=== PATIENT | male | born 1945 | race Caucasian/White ===

== ENCOUNTER 2019-05-24 22:38 | Inpatient (IN) | payer MEDICARE, BC ==
[~2019-05-24] VITALS: Ht 175.3 cm; Wt 83.9 kg
--- NOTE | 2019-05-24 22:44 | NUR ---
PT LIMA FROM HOME FOR SOB; PER REPORT PLEURAL EFFUSION; PT AAOX4, NAD NOTED, VSS ,PENDING MD SEGOVIA
--- NOTE | 2019-05-24 22:55 | NUR ---
AT BEDSIDE FOR EVAL
[2019-05-24 23:19] LABS: BASOPHILS # (AUTO) 0.1 /CMM (0.0-0.2); BASOPHILS % (AUTO) 0.9 % (0.0-2.0); EOSINOPHILS % (AUTO) 1.5 % (0.0-6.0); HEMATOCRIT 39 % (39-51); HEMOGLOBIN 13.1 g/dL (13.5-17.5); LYMPHOCYTES # (AUTO) 0.7 /CMM (0.8-4.8); LYMPHOCYTES % (AUTO) 10.1 % (20.0-44.0); MEAN CORPUSCULAR HGB CONC 33 g/dl (31.0-36.0); MEAN CORPUSCULAR VOLUME 86 fL (80-96); MONOCYTES # (AUTO) 0.5 /CMM (0.1-1.30); MONOCYTES % (AUTO) 6.5 % (2.0-12.0); PLATELET COUNT (AUTO) 166 /CMM (150-450); RED BLOOD CELL COUNT(AUTO) 4.56 MIL/uL (4.5-6.0); WHITE BLOOD COUNT (AUTO) 7.4 K/uL (4.3-11.0)
[2019-05-24 23:30] LABS: CALCIUM, SERUM 8.7 mg/dL (8.5-10.1); CARBON DIOXIDE 23 mmol/L (21-32); CHLORIDE 104 mmol/L (98-107); CREATININE 1.1 mg/dL (0.6-1.3); GLUCOSE 112 mg/dL (74-106); SODIUM SERUM 138 mmol/L (136-145); UREA NITROGEN, BLOOD 13 mg/dL (7-18)
--- NOTE | 2019-05-24 23:35 | NUR ---
BED ASSIGNMENT: 325-1 TELE
[2019-05-24 23:43] LABS: ALANINE AMINOTRANSFERASE 16 U/L (12-78); ALKALINE PHOSPHATASE 78 U/L (46-116); ASPARTATE AMINOTRANSFERASE 17 U/L (15-37); B-TYPE NATRIURETIC PEPTIDE 881 PG/ML (0-125); BILIRUBIN,DIRECT 0.3 mg/dL (0.0-0.2); TOTAL PROTEIN, SERUM 6.7 g/dL (6.4-8.2)
[2019-05-25] MEDS ORDERED: TEMAZEPAM 15 MG CAPSULE PO PRN
[2019-05-25] MEDS ORDERED: ONDANSETRON HCL/PF 4 MG/2 ML VIAL IVP PRN
[2019-05-25] MEDS ORDERED: ZOLPIDEM TARTRATE 5 MG TABLET PO PRN
[2019-05-25] MEDS ORDERED: Z GUARD REMEDY 2 OZ OINT TP PRN
[2019-05-25] MEDS ORDERED: HYDROCODONE/APAP 5/325MG 1 EACH TABLET PO PRN
[2019-05-25] MEDS ORDERED: MAG HYDROX/AL HYDROX/SIMETH 30 ML UDC PO PRN
[2019-05-25] MEDS ORDERED: MAGNESIUM HYDROXIDE 30 ML UDC PO PRN
[2019-05-25] MEDS ORDERED: ACETAMINOPHEN 325 MG TABLET PO PRN
[2019-05-25] MEDS ORDERED: LORAZEPAM 1 MG TABLET PO PRN
[2019-05-25] MEDS ORDERED: SERT100T PO (00:05)
[2019-05-25] MEDS ORDERED: TRAZ-214 PO (00:05)
--- NOTE | 2019-05-25 00:05 | NUR ---
REPORT GIVEN TO NOREEN COPELAND FOR PUMA PT WILL BE TRANSPORTED TO 3RD FLOOR VIA ACLS PROTOCOL
[2019-05-25 00:15] VITALS: BP 113/78
--- NOTE | 2019-05-25 00:15 | NUR ---
TELE/TRAVELING BUYER NOTES NEW ADMITTED PATIENT IS A 73 Y.O MALE, ALERT, ORIENTED X3, HARD OF HEARING CAN VERBALIZE NEEDS, RECEIVED PATIENT FROM ER ON A GURNEY FROM HOME DUE TO SOB. PATIENT CAN AMBULATE WITH SUPERVISION, REQUIRE OXYGENATION AT 2 LITER. WITH HX OF PLEURAL EFFUSION, WITH CATHETER THAT REQUIRE EVALUATION FOR REPAIR. PATIENT WITH HISTORY OF COPD, ANXIETY, DEPRESSION, AMPUTAION PARTIAL ON LEFT FOOT TOE, SKIN WITH SURGICAL SCAR OF MID BACK LAMINECTOMY AND BUE DISCOLORATION.MD ARCHER ADMITTING DOCTOR. BELONGINGS CHECK, ONLY EYE GLASSES, TELE RHYTM AR 90'S. ROOM ORIENTATION, CALL LIGHTS WITHIN REACH. BED LOCKED, MEDICATION HOME REPORTED. WILL MONITOR. PATIETN WITH PULMONILOGIST DR NAIK. AND PCP .
--- NOTE | 2019-05-25 00:15 | NUR ---
PT TRANSPOTE TO UNIT WITH EMT AND RN AT BEDSIDE W/ ACLS PROTOCOL. NAD NOTED DURING TRANPORT.
--- NOTE | 2019-05-25 00:21 | NUR ---
Rae lott in [facility] - 05/25/19 at 0021 by JAMES PT TRANSFERRED TO [facility] BED PER ACLS PROTOCOL
--- NOTE | 2019-05-25 00:49 | NUR ---
TELE/RN NOTES ATIVAN 0..5 MG/HALF TABLET PER MD ORDER AND PATIENT REQUEST DUE TO ANXIETY. WILL MONITOR.
--- NOTE | 2019-05-25 03:56 | NUR ---
TELE/RN NOTES HOME MEDICATIONS REPORTED TO MD AWAITING RECONCILIATION. FROM MD.
[2019-05-25 04:00] VITALS: BP 113/75
--- NOTE | 2019-05-25 06:30 | NUR ---
MS/RN NOTES PATIENT ABLE TO SLEEP FEW HOURS, KEPT CALM AND COMFORTABLE. FAMILY INVOLVE. ABLE TO VERBALIZE NEEDS AND VERBALIZED UNDERSTANDING OF PLAN OF CARE WITH US GUIDED THORACENTESIS, CONSNT SIGNED. BED LOCKED, CALL LIGHTS WITHIN REACH, OFFERED AND PROVIDED FLUIDS. MONITORED FOR ANY CHANGES, WILL FOLLOW UP WITH AM NURSE FOR PUMA.
[2019-05-25 06:54] LABS: BASOPHILS # (AUTO) 0.1 /CMM (0.0-0.2); BASOPHILS % (AUTO) 0.7 % (0.0-2.0); EOSINOPHILS % (AUTO) 1.2 % (0.0-6.0); HEMATOCRIT 37 % (39-51); HEMOGLOBIN 12.3 g/dL (13.5-17.5); LYMPHOCYTES # (AUTO) 0.9 /CMM (0.8-4.8); MEAN CORPUSCULAR HGB CONC 33 g/dl (31.0-36.0); MEAN CORPUSCULAR VOLUME 86 fL (80-96); MONOCYTES # (AUTO) 0.8 /CMM (0.1-1.30); MONOCYTES % (AUTO) 9.6 % (2.0-12.0); NEUTROPHILS # (AUTO) 6.2 /CMM (1.8-8.9); NEUTROPHILS % (AUTO) 77.5 % (43.0-81.0); PLATELET COUNT (AUTO) 158 /CMM (150-450); RED BLOOD CELL COUNT(AUTO) 4.31 MIL/uL (4.5-6.0)
[2019-05-25 07:09] LABS: CALCIUM, SERUM 8.5 mg/dL (8.5-10.1); CARBON DIOXIDE 22 mmol/L (21-32); CHLORIDE 105 mmol/L (98-107); CREATININE 0.9 mg/dL (0.6-1.3); GLUCOSE 97 mg/dL (74-106); MAGNESIUM 2.1 mg/dL (1.8-2.4); PHOSPHORUS 3.7 mg/dL (2.5-4.9); POTASSIUM 3.9 mmol/L (3.5-5.1); SODIUM SERUM 140 mmol/L (136-145); UREA NITROGEN, BLOOD 12 mg/dL (7-18)
--- NOTE | 2019-05-25 07:55 | NUR ---
ms rn received on bed, awake,alert,oriented x 3,not in any form of distress, respirations even and unlabored,no sob noted, at bedside.
[2019-05-25 08:00] VITALS: BP 125/82
--- NOTE | 2019-05-25 08:30 | NUR ---
ms rn was seen by dr. nando rust/ orders made and carried out.
--- NOTE | 2019-05-25 11:00 | NUR ---
ms rn was seen by ultrasound, was not able to do thoracentesis due to small fluid, md aware.
--- NOTE | 2019-05-25 12:00 | NUR ---
ms samson called dr. paredes office for consult.
--- NOTE | 2019-05-25 12:00 | NUR ---
ms rn breathing tx was done, w/c helps patient.
[2019-05-25] MEDS: IPRATROPIUM NEB FS 0.5 MG/2.5 ML AMPUL.NEB NEB SCH ×4 (12:35→23:54)
[2019-05-25] MEDS: ALBUTEROL FS 2.5 MG/0.5 ML VIAL.NEB NEB SCH ×4 (12:35→23:54)
[2019-05-25 16:00] VITALS: BP 118/71
--- NOTE | 2019-05-25 16:00 | NUR ---
ms rn waited for dr. paredes, did not come to see patient.
--- NOTE | 2019-05-25 19:24 | NUR ---
ms rn on bed, no distress noted, all needs attended.
[2019-05-25 20:00] VITALS: BP 125/86
--- NOTE | 2019-05-25 20:50 | NUR ---
Met with patient and at bedside. Patient is alert and pleasant. Lives locally with his on the third floor apartment with elevator access. He was ambulatory and independent with adl's prior to admission. He plays golf 3x/week and was active. He is currently on service with [facility] [employer] [phone] for pleurex cath care due to chronic pleural effusion .Patient pcp is Dr. Andreas Randall at [facility]/Lianna Schofield. can provide ride when discharge. Addendum: 05/25/19 at 2050 by LOVE CR RN Amended: Links added.
[2019-05-25] MEDS: SERTRALINE HCL 50 MG TABLET PO SCH (21:09)
[2019-05-25] MEDS ORDERED: TRAZODONE 50 MG TABLET PO SCH (22:00)
[2019-05-26] MEDS: IPRATROPIUM NEB FS 0.5 MG/2.5 ML AMPUL.NEB NEB SCH ×4 (04:05→15:33)
[2019-05-26] MEDS: ALBUTEROL FS 2.5 MG/0.5 ML VIAL.NEB NEB SCH ×4 (04:05→15:33)
--- NOTE | 2019-05-26 06:24 | NUR ---
MS RN NOTES AWAKE & RESPONSIVE. NOT IN ANY DISTRESS. NO SOB NOTED. DENIES ANY PAIN OR DISCOMFORT AT THIS TIME. WITH IV-HL PATENT & INTACT. MONITORED ACCORDINGLY. CALL LIGHT WITHIN REACH. BED IN LOWEST POSITION. SR UP X 2 FOR SAFETY. WILL ENDORSE TO NEXT SHIFT.
[2019-05-26 07:06] LABS: BASOPHILS # (AUTO) 0.1 /CMM (0.0-0.2); BASOPHILS % (AUTO) 0.6 % (0.0-2.0); EOSINOPHILS % (AUTO) 0.4 % (0.0-6.0); HEMATOCRIT 39 % (39-51); HEMOGLOBIN 12.8 g/dL (13.5-17.5); LYMPHOCYTES # (AUTO) 0.8 /CMM (0.8-4.8); LYMPHOCYTES % (AUTO) 8.4 % (20.0-44.0); MEAN CORPUSCULAR HGB CONC 33 g/dl (31.0-36.0); MEAN CORPUSCULAR VOLUME 86 fL (80-96); MONOCYTES # (AUTO) 1.1 /CMM (0.1-1.30); MONOCYTES % (AUTO) 11.5 % (2.0-12.0); NEUTROPHILS # (AUTO) 7.4 /CMM (1.8-8.9); NEUTROPHILS % (AUTO) 79.1 % (43.0-81.0); PLATELET COUNT (AUTO) 174 /CMM (150-450); RED BLOOD CELL COUNT(AUTO) 4.49 MIL/uL (4.5-6.0); WHITE BLOOD COUNT (AUTO) 9.4 K/uL (4.3-11.0)
[2019-05-26 07:09] LABS: CALCIUM, SERUM 8.8 mg/dL (8.5-10.1); CARBON DIOXIDE 21 mmol/L (21-32); CHLORIDE 104 mmol/L (98-107); CREATININE 1.1 mg/dL (0.6-1.3); GLUCOSE 100 mg/dL (74-106); POTASSIUM 3.7 mmol/L (3.5-5.1); SODIUM SERUM 140 mmol/L (136-145); UREA NITROGEN, BLOOD 11 mg/dL (7-18)
--- NOTE | 2019-05-26 07:24 | NUR ---
RN MS OPENING NOTES Patient remains on 2L nasal cannula, no sob noted, patient denies pain at this time. Patient remains a/o x4, no IVF at this time, IV remains patent, family bedside with no further questions at this time. Bed at the lowest setting, call light within reach.
[2019-05-26 08:00] VITALS: BP 98/70
[2019-05-26] MEDS: SERTRALINE HCL 50 MG TABLET PO SCH (08:47)
[2019-05-26 16:00] VITALS: BP 117/76
[2019-05-26] MEDS ORDERED: PRED20TA PO (17:09)
[2019-05-26] MEDS ORDERED: PRED5TAB48 PO (17:09)
--- NOTE | 2019-05-26 18:26 | NUR ---
RN MS DISCHARGE NOTES Patient discharged at this time. Patient refused photo and refused to wait at this time. Paper works signed and in their belongings. Patient has all belongings with them. Patient able to walk with to their car as patient refused a wheelchair at this time.
== END 2019-05-26 18:25 | disposition home or self-care (01) | DRG 919 ==
LOC: ER 22:48 → TELE 23:48 → MED 05-25 10:06
PROVIDERS: ADMIT Internal Medicine; ATTEND Hospitalist
DX: T85.698A Other mechanical complication of other specified internal prosthetic devices, implants and grafts, initial encounter (principal); E43 Unspecified severe protein-calorie malnutrition; J96.21 Acute and chronic respiratory failure with hypoxia; J90 Pleural effusion, not elsewhere classified; J98.11 Atelectasis; J81.1 Chronic pulmonary edema; Y84.8 Other medical procedures as the cause of abnormal reaction of the patient, or of later complication, without mention of misadventure at the time of the procedure; Y92.129 Unspecified place in nursing home as the place of occurrence of the external cause; J44.9 Chronic obstructive pulmonary disease, unspecified; F41.9 Anxiety disorder, unspecified; F32.9 Major depressive disorder, single episode, unspecified; Z79.899 Other long term (current) drug therapy; Z87.891 Personal history of nicotine dependence; Z87.01 Personal history of pneumonia (recurrent)
CPT/HCPCS: 36415; 71045-TC; 76604-TC; 80048-TC; 80076-TC; 83605-TC; 83735-TC; 83880; 84100-TC; 84484-TC; 85025-TC; 85730-TC; 87040-TC; 87081-TC; 94799-TC; G0378

== ENCOUNTER 2019-09-18 15:01 | Emergency (ER) | payer BC, MEDICARE ==
[~2019-09-18] VITALS: Ht 175.3 cm; Wt 74.8 kg
[~2019-09-18 15:01] MED LIST: PRED20TA PO; PRED5TAB48 PO; SERT100T PO; TRAZ-214 PO
--- NOTE | 2019-09-18 15:06 | NUR ---
"BIBRA99, FROM HOME, C/O SOB x 2 DAYS" pt aaox4, nad ntoed, vss, pt on monitor, pending dm eval
[2019-09-18 16:23] LABS: BASOPHILS # (AUTO) 0.1 /CMM (0.0-0.2); BASOPHILS % (AUTO) 0.8 % (0.0-2.0); EOSINOPHILS % (AUTO) 2.8 % (0.0-6.0); HEMATOCRIT 37 % (39-51); HEMOGLOBIN 11.9 g/dL (13.5-17.5); LYMPHOCYTES # (AUTO) 0.7 /CMM (0.8-4.8); MEAN CORPUSCULAR HGB CONC 32 g/dl (31.0-36.0); MEAN CORPUSCULAR VOLUME 83 fL (80-96); MONOCYTES # (AUTO) 0.7 /CMM (0.1-1.30); MONOCYTES % (AUTO) 8.5 % (2.0-12.0); NEUTROPHILS # (AUTO) 6.2 /CMM (1.8-8.9); NEUTROPHILS % (AUTO) 78.9 % (43.0-81.0); PLATELET COUNT (AUTO) 183 /CMM (150-450); RED BLOOD CELL COUNT(AUTO) 4.45 MIL/uL (4.5-6.0); WHITE BLOOD COUNT (AUTO) 7.9 K/uL (4.3-11.0)
[2019-09-18 16:43] LABS: ALBUMIN 2.7 g/dL (3.4-5.0); BILIRUBIN,DIRECT 0.3 mg/dL (0.0-0.2); BILIRUBIN,TOTAL 0.5 mg/dL (0.2-1.0); CALCIUM, SERUM 8.6 mg/dL (8.5-10.1); CREATININE 1.1 mg/dL (0.6-1.3); POTASSIUM 4.2 mmol/L (3.5-5.1); TOTAL PROTEIN, SERUM 7.1 g/dL (6.4-8.2)
[2019-09-18] MEDS ORDERED: MULT-24 PO (17:06)
[2019-09-18] MEDS ORDERED: ALBU18HF2 IH (17:06)
[2019-09-18] MEDS ORDERED: IOHEXOL-350 100 ML VIAL IV ONE (18:36)
[2019-09-18] MEDS ORDERED: CT SWABBABLE VALVE TRANS SET 1 EA INFUS.SET MC ONE (18:36)
[2019-09-18] MEDS ORDERED: IV NS 0.9% 250 ML IV ONE (18:36)
[2019-09-18] MEDS ORDERED: IBUPROFEN 600 MG TABLET PO ONE (19:30)
[2019-09-18] MEDS ORDERED: ONDANSETRON 4 MG TAB.RAPDIS SL ONE (19:30)
--- NOTE | 2019-09-18 20:08 | NUR ---
Patient does not wish to proceed with medical care recommended by Dr. Geiger. Patient given information related to possible complications, up to and including , which could occur as a result of leaving the hospital at this time. Patient verbalizes understanding of risks involved due to leaving against medical advice. Patient has signed AMA form.
[2019-09-18 20:13] VITALS: BP 110/64
== END 2019-09-18 20:13 | disposition left against medical advice (07) ==
LOC: ER 15:11
DX: J90 Pleural effusion, not elsewhere classified (principal); R91.8 Other nonspecific abnormal finding of lung field; D64.9 Anemia, unspecified; J44.9 Chronic obstructive pulmonary disease, unspecified; F41.9 Anxiety disorder, unspecified; F32.9 Major depressive disorder, single episode, unspecified; Z98.890 Other specified postprocedural states; Z79.899 Other long term (current) drug therapy
CPT/HCPCS: 36415; 71045; 71275; 80048; 80076; 83880; 84484; 85025; 85378; 93005; 99284; J7050; Q9967

== ENCOUNTER 2021-05-13 12:31 | Inpatient (IN) | payer MEDICARE, OTHER ==
[~2021-05-13] VITALS: Ht 174 cm; Wt 65.8 kg
[~2021-05-13 12:31] MED LIST changes: +ALBU18HF2 IH; +MULT-24 PO; -PRED20TA PO; -PRED5TAB48 PO; -TRAZ-214 PO
--- NOTE | 2021-05-13 12:50 | NUR ---
bibra88, from home, more altered than normal per . On room air, breathing evenly and unlabored. Connected to the monitor and pulse ox. kept comfortable, will continue to monitor accordingly.
--- NOTE | 2021-05-13 12:59 | NUR ---
IV started and blood drawned and sent to lab.
--- NOTE | 2021-05-13 12:59 | NUR ---
urine collected and sent to lab.
[2021-05-13 13:03] LABS: BASOPHILS # (AUTO) 0.1 K/uL (0.0-0.2); BASOPHILS % (AUTO) 0.5 % (0.0-2.0); EOSINOPHILS % (AUTO) 0.3 % (0.0-6.0); HEMATOCRIT 43 % (39-51); HEMOGLOBIN 13.8 g/dL (13.5-17.5); LYMPHOCYTES # (AUTO) 0.7 K/uL (0.8-4.8); LYMPHOCYTES % (AUTO) 7.1 % (20.0-44.0); MEAN CORPUSCULAR HGB CONC 32 g/dl (31.0-36.0); MEAN CORPUSCULAR VOLUME 85 fL (80-96); MONOCYTES # (AUTO) 0.7 K/uL (0.1-1.30); MONOCYTES % (AUTO) 7.2 % (2.0-12.0); NEUTROPHILS # (AUTO) 8.6 K/uL (1.8-8.9); NEUTROPHILS % (AUTO) 84.9 % (43.0-81.0); PLATELET COUNT (AUTO) 216 K/uL (150-450); RED BLOOD CELL COUNT(AUTO) 5.09 MIL/uL (4.5-6.0); WHITE BLOOD COUNT (AUTO) 10.2 K/uL (4.3-11.0)
[2021-05-13 13:08] LABS: BILIRUBIN,URINE Negative (NEGATIVE); COLOR,URINE DARK YELLOW (YELLOW); LEUKOCYTE ESTERASE ,URINE Negative (NEGATIVE); NITRITE, URINE Negative (NEGATIVE); PH,URINE 5.5 (5.0-8.0); PROTEIN,URINE Trace mg/dl (NEGATIVE); UGLUCOSE Negative (NEGATIVE); UROBILINOGEN,URINE 0.2 EU/dL (0.2)
[2021-05-13 13:10] LABS: CALCIUM, SERUM 9.3 mg/dL (8.5-10.1); CARBON DIOXIDE 26 mmol/L (21-32); CHLORIDE 102 mmol/L (98-107); CREATININE 0.9 mg/dL (0.6-1.3); GLUCOSE 101 mg/dL (74-106); POTASSIUM 4.2 mmol/L (3.5-5.1); SODIUM SERUM 139 mmol/L (136-145); UREA NITROGEN, BLOOD 20 mg/dL (7-18)
[2021-05-13 13:14] LABS: ACETAMINOPHEN 0 ug/ml (10-30)
[2021-05-13 13:21] LABS: BACTERIA,URINE Rare /HPF (None Seen); RBC,URINE NONE SEEN /HPF (0-2); SQUAMOUS EPITHELIAL CELL,UR Rare /HPF (None Seen); WBC,URINE 0-2 /HPF (0-3)
[2021-05-13 13:37] LABS: SERUM AMMONIA 26 umol/L (11-32)
[2021-05-13] MEDS ORDERED: ALPR0.255 PO (13:41)
[2021-05-13] MEDS ORDERED: BUSP10TA3 PO (13:41)
[2021-05-13] MEDS ORDERED: SODI1TAB66 PO (13:41)
[2021-05-13] MEDS ORDERED: TRAZ-257 PO (13:41)
[2021-05-13] MEDS ORDERED: LORAZEPAM INJ 2 MG/ML VIAL IV PRN (15:00)
[2021-05-13] MEDS ORDERED: MAGNESIUM HYDROXIDE 30 ML UDC PO PRN (15:00)
[2021-05-13] MEDS ORDERED: ACETAMINOPHEN 325 MG TABLET PO PRN (15:00)
[2021-05-13] MEDS ORDERED: MAG HYDROX/AL HYDROX/SIMETH 30 ML UDC PO PRN (15:00)
[2021-05-13] MEDS ORDERED: HOME MED MISCELLANEOUS XX SCH (15:00)
[2021-05-13] MEDS ORDERED: ONDANSETRON HCL/PF 4 MG/2 ML VIAL IVP PRN (15:00)
[2021-05-13] MEDS ORDERED: Z GUARD REMEDY 2 OZ OINT TP PRN (15:00)
--- NOTE | 2021-05-13 15:12 | NUR ---
GOT BED 304-2
--- NOTE | 2021-05-13 15:28 | NUR ---
report given to Patricia COPELAND for mahnaz.
--- NOTE | 2021-05-13 15:56 | NUR ---
wheeled patient via gurney accompanied by RN and emt in no distress. RN assigned at bedside to assume care.
--- NOTE | 2021-05-13 16:00 | NUR ---
TRANSPORTATION SALES CONSULTANT NOTES RECEIVED PT FROM E.R. STAFF VIA GABRIELA, PT IS AWAKE, ALERT AND VERBALLY RESPONSIVE, ASSISTED TO BED, MADE COMFORTABLE, ROOM SET UP ORIENTATION PROVIDED TO PT, PT AND JERONIMO VERBALIZED UNDERSTANDING, NO COMPLAINT OF PAIN OF ANY DISCOMFORT, ADMITTING ORDERS RECEIVED, NOTED AND CARRIED OUT, VITALS TAKEN AND RECORDED, PLACED ON TELE MONITORING, KEPT WARM AND COMFORTABLE.
--- NOTE | 2021-05-13 18:42 | NUR ---
BUSINESS ANALYTICS SPECIALIST NOTES PT IN BED, RESTING, ASSISTED WITH MEALS BY JERONIMO, IV FLUIDS INFUSING WELL, CALL LIGHT PLACED WITHIN REACH, PM CARE PROVIDED, ALL NEEDS ATTENDED.
[2021-05-13] MEDS: busPIRone 5 MG TABLET PO SCH (18:54)
[2021-05-13] MEDS: IV NS 0.9% 1,000 ML IV PRN (18:54)
--- NOTE | 2021-05-13 19:57 | NUR ---
HOSPITAL MANAGER OPENING NOTE PATIENT A/OX2; IN BED, FORGETFUL, ABLE TO MAKE NEEDS KNOWN. TOLERATING ROOM AIR WELL WITH NO SOB. EXTERNAL ELEMENTARY SPECIAL EDUCATION TEACHER READS NSR AT 77. RAC #18G NS @ 75ML/HR; PATENT AND INTACT. SAFETY MEASURES IN PLACE: BED TO LOWEST LOCKED POSITION, SIDE RAILS UPX2, CALL LIGHT WITHIN EASY REACH, BED ALARM ON. PATIENT IN STABLE CONDITION WILL CONTINUE PLAN OF CARE.
[2021-05-13 20:18] VITALS: BP 115/83
[2021-05-13] MEDS ORDERED: TRAZODONE 50 MG TABLET PO SCH (22:00)
[2021-05-13 23:54] VITALS: BP 126/89
--- NOTE | 2021-05-14 04:10 | NUR ---
HUMAN RESOURCES OFFICE ASSISTANT NOTE - BEHAVIOR PATIENT NOTED WITH EPISODES OF ANXIETY, INSOMNIA, AGITATION, RESTLESSNESS, IRRITABILITY, CONFUSION, AND PARANOIA. OFFERED PAIN MEDICATION; PATIENT AGREED AND THEN REFUSED X3 . PATIENT REFUSING CARE AT THIS TIME. WILL CONTINUE TO MONITOR PATIENT'S BEHAVIOR.
[2021-05-14 06:11] LABS: BASOPHILS % (AUTO) 0.5 % (0.0-2.0); HEMATOCRIT 40 % (39-51); HEMOGLOBIN 12.8 g/dL (13.5-17.5); LYMPHOCYTES % (AUTO) 11.7 % (20.0-44.0); MEAN CORPUSCULAR HGB CONC 32 g/dl (31.0-36.0); MEAN CORPUSCULAR VOLUME 85 fL (80-96); MONOCYTES # (AUTO) 0.7 K/uL (0.1-1.30); NEUTROPHILS # (AUTO) 6.4 K/uL (1.8-8.9); NEUTROPHILS % (AUTO) 78.8 % (43.0-81.0); PLATELET COUNT (AUTO) 191 K/uL (150-450); RED BLOOD CELL COUNT(AUTO) 4.75 MIL/uL (4.5-6.0); WHITE BLOOD COUNT (AUTO) 8.2 K/uL (4.3-11.0)
--- NOTE | 2021-05-14 06:46 | NUR ---
BRIAR SHOP SUPERVISOR OPENING NOTE PATIENT A/OX1; IN BED, FORGETFUL, ABLE TO MAKE NEEDS KNOWN. TOLERATING ROOM AIR WELL WITH NO SOB. EXTERNAL HAM FACER READS NSR AT 77. RAC #18G NS @ 75ML/HR; PATENT AND INTACT. SAFETY MEASURES IN PLACE: BED TO LOWEST LOCKED POSITION, SIDE RAILS UPX2, CALL LIGHT WITHIN EASY REACH, BED ALARM ON. PATIENT IN STABLE CONDITION WILL ENDORSE PLAN OF CARE TO MORNING RN.
--- NOTE | 2021-05-14 06:48 | NUR ---
CARTOON ARTIST CLOSING NOTE PATIENT A/OX1; IN BED, FORGETFUL, ABLE TO MAKE NEEDS KNOWN. TOLERATING ROOM AIR WELL WITH NO SOB. EXTERNAL PERCUSSION INSTRUMENT REPAIRER READS NSR AT 77. RAC #18G NS @ 75ML/HR; PATENT AND INTACT. SAFETY MEASURES IN PLACE: BED TO LOWEST LOCKED POSITION, SIDE RAILS UPX2, CALL LIGHT WITHIN EASY REACH, BED ALARM ON. PATIENT IN STABLE CONDITION WILL ENDORSE PLAN OF CARE TO MORNING RN. Addendum: 05/14/21 at 0650 by BLAZE THAPA RN CORRECTION IV SITE: MONY #20G NS @ 75ML/HR VAMSHI #22G S/L
[2021-05-14] MEDS: IV NS 0.9% 1,000 ML IV PRN (07:00)
[2021-05-14 07:14] LABS: CALCIUM, SERUM 8.7 mg/dL (8.5-10.1); CREATININE 0.9 mg/dL (0.6-1.3); MAGNESIUM 2.2 mg/dL (1.8-2.4); PHOSPHORUS 3.3 mg/dL (2.5-4.9); POTASSIUM 3.6 mmol/L (3.5-5.1)
--- NOTE | 2021-05-14 07:25 | NUR ---
MINK RANCHER OPENING NOTE RECEIVED PT AWAKE IN BED, PT HEARD TALKING TO HIMSELF. PROVIDED REORIENTATION. PT A/O X3, BUT EASILY FORGETS. DENIES ANY PAIN OR DISCOMFORT AT THIS TIME. BREATHING EVEN AND UNLABORED, ON ROOM AIR. IV ACCESS NOTED ON R-AC #18G, INTACT, PATENT, FLUSHES WELL, NO S/S OF INFILTRATE NOTED. SAFETY MEASURES IN PLACE: BED TO LOWEST LOCKED POSITION, SIDE RAILS UPX2, CALL LIGHT WITHIN EASY REACH, BED ALARM ON. PATIENT IN STABLE CONDITION. WILL CONTINUE TO MONITOR.
[2021-05-14] MEDS ORDERED: LORAZEPAM INJ 2 MG/ML VIAL IV ONE (08:30)
[2021-05-14] MEDS: MULTIVITAMINS,THERAGRAN 1 UDTAB TABLET PO SCH (08:54)
[2021-05-14] MEDS: PANTOPRAZOLE 40 MG TABLET.DR PO SCH (08:55)
[2021-05-14] MEDS: busPIRone 5 MG TABLET PO SCH ×2 (08:55→17:00)
[2021-05-14] MEDS ORDERED: SERTRALINE HCL 50 MG TABLET PO SCH (09:00)
--- NOTE | 2021-05-14 10:35 | NUR ---
WOUND CARE CONSULT: PT PRESENTS WITH DRY ABRASIONS TO UPPER EXTREMITIES AND DISCOLORATION TO LEFT SIDE OF NECK, PRESENT ON ADMISSION. PT IS ABLE TO TURN, REPOSITION IN BED AND IS CONTINENT AT THIS TIME. DISCUSSED SKIN PROTECTION WITH PT, AND NURSING STAFF. WILL SEE PRN. JIMÉNEZ IN AGREEMENT WITH PLAN OF CARE.
--- NOTE | 2021-05-14 14:25 | NUR ---
RN NOTE PT'S CALLED FOR NURSE DUE TO PT HAS BEEN TRYING TO GET UP OUT OF BED BY HIMSELF AND STATING TO GO HOME. PT HAS SEVERE WEAKNESS OF EXTREMITIES AND IS AT HIGH RISK FOR FALL. NURSE NOTED PT IS HYPERVERBAL AND AGITATED, SPOKE CALMLY TO PT, PROVIDED REORIENTATION, PROVIDED DISTRACTION, OFFERED BEDSIDE COMMODE. PT APPEARS TO CALM DOWN MOMENTARILY. ASSISTED TO BEDSIDE COMMODE AND PT SAT IN BEDSIDE COMMODE, BUT STARTS TO STAND UP AGAIN BY HIMSELF, ASSISTED SAFELY TO BED WITH 2-PERSON ASSIST WITH BOAT CANVAS MAKER AND INSTALLER. PT SAT AT EDGE OF BED BUT AGAIN STARTED GETTING AGITATED, HYPERVERBAL, STRIKING OUT AT NURSES AND SCREAMING. CALLED CHARGE NURSE AND SECURITY. INFORMED AND CAME TO SEE PT.
--- NOTE | 2021-05-14 14:57 | NUR ---
RN MS NOTES PT AWAKE, AGITATED AND ANXIOUS, VERBALIZES HE WANTS TO GO HOME, TRYING TO GET OUT OF BED, TRYING TO STAND UP, WITH BLE WEAKNESS, RISK FOR FALL, SECURITY FLEX OFFICER, RN'S AND AT BEDSIDE, WITH EPISODE OF BEING COMBATIVE TO STAFF, NOTED WIT BLEEDING TO SKIN TEARS TO BOTH ARMS, TREATMENT DONE AND DRESSING APPLIED, DR. HASSAN CAME AND SAW PATIENT, ORDERS GIVEN, NOTED AND CARRIED OUT, WILL CONTINUE TO MONITOR.
[2021-05-14] MEDS ORDERED: QUETIAPINE FUMARATE 25 MG TABLET PO SCH (15:00)
[2021-05-14] MEDS: DIVALPROEX SODIUM 125 MG CAP.SPRINK PO SCH ×2 (15:21→21:32)
[2021-05-14] MEDS: DOCUSATE SODIUM 100 MG CAPSULE PO SCH (17:00)
[2021-05-14] MEDS: QUETIAPINE FUMARATE 25 MG TABLET PO SCH (17:00)
--- NOTE | 2021-05-14 17:21 | NUR ---
RN NOTE PT'S LEFT WITH REQUEST NOT TO WAKE PT UP FOR DINNER, TO LET HIM SLEEP, SHE VERBALIZED "FOR LONG HE WANTS" AND "IF HE SLEEPS UNTIL NOON TOMORROW, LET HIM SLEEP; HE HASN'T SLEPT FOR DAYS." PT IS SLEEPING SOUNDLY AT THIS TIME, NO SOB. CALL LIGHT WITHIN EASY REACH. WILL CONTINUE FREQUENT VISUAL CHECKS.
--- NOTE | 2021-05-14 18:02 | NUR ---
RN NOTE PM MEDS NOT GIVEN, PT SLEEPING SOUNDLY. PER 'S REQUEST "DO NOT WAKE HIM UP, HE'S HAD NO SLEEP FOR DAYS."
--- NOTE | 2021-05-14 19:00 | NUR ---
RN NOTE RECEIVED PT IN 320-1. SITTER AT BEDSIDE. IV MEDS PLACED IN MED ROOM. BELONGINGS CHECKED AND WITH PT. IV PRESENT. PT REFUSES SKIN CHECK. WILL CONTINUE TO MONITOR AND GIVEN REPORT TO NIGHT NURSE FOR ADMISSION PROCESS.
--- NOTE | 2021-05-14 19:37 | NUR ---
Per RN, u/s thyroid exam to be done tomorrow morning due to patient's aggressive nature today and refusal. Patient is asleep and does not want to be disturbed.
[2021-05-14 20:00] VITALS: BP 126/62
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
--- NOTE | 2021-05-14 21:10 | NUR ---
still awaiting verification of new ativan order from pharmacy. pt more cooperative with staff at this time. security left the bedside. ramya employment educational coord to remain at bedside. will cont to monitor behavior.
[2021-05-14] MEDS ORDERED: LORAZEPAM INJ 2 MG/ML VIAL IV PRN (21:30)
--- NOTE | 2021-05-14 21:35 | NUR ---
pt in bed cooperating took scheduled depakote. still awaiting medications to be verified for agitation. pt is calm at this time. in room with sitter. will cont to monitor mood and behavior.
[2021-05-14] MEDS ORDERED: HALOPERIDOL LACTATE INJ 5 MG/ML VIAL IM PRN (22:00)
--- NOTE | 2021-05-15 05:26 | NUR ---
PT AWAKE COOPERATIVE; PICTURES TAKEN OF SKIN TEARS TO LEFT ARM AND HAND. CLEANED WITH NS, XEROFORM APPLIED COVERED WITH MEPILEX WRAPPED IN KERLIX. WILL CONT TO MONITOR. TORRI BOYD STILL AT BEDSIDE.
[2021-05-15 05:59] LABS: BASOPHILS % (AUTO) 0.5 % (0.0-2.0); CALCIUM, SERUM 8.7 mg/dL (8.5-10.1); CREATININE 0.9 mg/dL (0.6-1.3); EOSINOPHILS % (AUTO) 1.4 % (0.0-6.0); HEMATOCRIT 40 % (39-51); HEMOGLOBIN 12.9 g/dL (13.5-17.5); LYMPHOCYTES # (AUTO) 0.9 K/uL (0.8-4.8); MEAN CORPUSCULAR HGB CONC 32 g/dl (31.0-36.0); MEAN CORPUSCULAR VOLUME 84 fL (80-96); MONOCYTES # (AUTO) 0.7 K/uL (0.1-1.30); MONOCYTES % (AUTO) 8.1 % (2.0-12.0); NEUTROPHILS # (AUTO) 6.5 K/uL (1.8-8.9); PLATELET COUNT (AUTO) 176 K/uL (150-450); POTASSIUM 3.6 mmol/L (3.5-5.1); RED BLOOD CELL COUNT(AUTO) 4.74 MIL/uL (4.5-6.0); WHITE BLOOD COUNT (AUTO) 8.2 K/uL (4.3-11.0)
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
--- NOTE | 2021-05-15 06:30 | NUR ---
RN CLOSING NOTE. PT RESTING IN BED WITH EYES CLOSED IN NO APPARENT DISTRESS. BED DOWN LOCKED. SITTER AT THE BEDSIDE. SRX3 BED ALARM ACTIVE.
--- NOTE | 2021-05-15 07:10 | NUR ---
MS RN OPENING NOTE RECEIVED PATIENT ON BED, A/OX1-2 BUT FORGETFUL. PATIENT ABLE TO MAKE NEEDS KNOWN. TOLERATING ROOM AIR WELL WITH NO SOB, WITH EVEN AND UNLABORED BREATHING. WITH IV ACCESS ON MONY G 20 AND RFA G22, PATENT AND INTACT. WITH SITTER AT BEDSIDE. SAFETY MEASURES IN PLACE: BED TO LOWEST LOCKED POSITION, SIDE RAILS UPX2, CALL LIGHT WITHIN EASY REACH, BED ALARM ON. PATIENT IN STABLE CONDITION. CONTINUE TO MONITOR PATIENT.
[2021-05-15] MEDS: PANTOPRAZOLE 40 MG TABLET.DR PO SCH (08:55)
[2021-05-15] MEDS: MULTIVITAMINS,THERAGRAN 1 UDTAB TABLET PO SCH (08:55)
[2021-05-15] MEDS: DIVALPROEX SODIUM 125 MG CAP.SPRINK PO SCH ×2 (08:55→17:09)
[2021-05-15] MEDS: DOCUSATE SODIUM 100 MG CAPSULE PO SCH ×2 (08:56→17:00)
[2021-05-15] MEDS: QUETIAPINE FUMARATE 25 MG TABLET PO SCH ×3 (08:57→17:08)
[2021-05-15] MEDS: FUROSEMIDE 40 MG/4 ML VIAL IV SCH ×3 (09:30→17:09)
[2021-05-15] MEDS: POTASSIUM CHLORIDE 20 MEQ TAB.PRT.SR PO SCH ×3 (10:38→12:48)
--- NOTE | 2021-05-15 17:00 | NUR ---
MS RN NOTE COLACE NOT GIVEN. PATIENT HAD 2 SOFT BM TODAY.
--- NOTE | 2021-05-15 18:55 | NUR ---
MS RN CLOSING NOTE PATIENT ON BED, A/OX2 BUT FORGETFUL. PATIENT ABLE TO MAKE NEEDS KNOWN. TOLERATING ROOM AIR WELL WITH NO SOB, WITH EVEN AND UNLABORED BREATHING. WITH IV ACCESS ON MONY G 20 AND RFA G22, PATENT AND INTACT. WITH SITTER AT BEDSIDE. SAFETY MEASURES IN PLACE: BED TO LOWEST LOCKED POSITION, SIDE RAILS UPX2, CALL LIGHT WITHIN EASY REACH, BED ALARM ON. PATIENT IN STABLE CONDITION. ENDORSED PATIENT FOR CONTINUITY OF CARE.
--- NOTE | 2021-05-15 19:00 | NUR ---
MS RN OPENING NOTE RECEIVED PT AWAKE IN BED. A/O X 1-2, SOME CONFUSION AND FORGETFULNESS ON ROOM AIR, NO SOB OR DISTRESS NOTED, NO C/O PAIN;RESPIRATIONS EVEN AND UNLABORED, IV ACCESS NOTED IN RFA G#22 INTACT, MONY G#20 INTACT, PATENT AND FLUSHING WELL. FALL AND SAFETY MEASURES IN PLACE AND MAINTAINED AT ALL TIMES: BED ALARM ON, BED IN LOW AND LOCKED POSITION, HOB ELEVATED TO SEMI FOWLERS POSITION, CALL LIGHT AND TABLE WITHIN REACH, SIDE RAILS UPX2. SITTER AT BEDSIDE. WILL CONTINUE WITH PLAN OF CARE.
[2021-05-16 06:25] LABS: BASOPHILS % (AUTO) 0.6 % (0.0-2.0); EOSINOPHILS % (AUTO) 1.5 % (0.0-6.0); HEMATOCRIT 41 % (39-51); HEMOGLOBIN 13.5 g/dL (13.5-17.5); LYMPHOCYTES # (AUTO) 0.9 K/uL (0.8-4.8); LYMPHOCYTES % (AUTO) 10.9 % (20.0-44.0); MEAN CORPUSCULAR HGB CONC 33 g/dl (31.0-36.0); MEAN CORPUSCULAR VOLUME 84 fL (80-96); MONOCYTES # (AUTO) 0.7 K/uL (0.1-1.30); MONOCYTES % (AUTO) 8.7 % (2.0-12.0); NEUTROPHILS # (AUTO) 6.4 K/uL (1.8-8.9); NEUTROPHILS % (AUTO) 78.3 % (43.0-81.0); PLATELET COUNT (AUTO) 179 K/uL (150-450); RED BLOOD CELL COUNT(AUTO) 4.91 MIL/uL (4.5-6.0); WHITE BLOOD COUNT (AUTO) 8.2 K/uL (4.3-11.0)
--- NOTE | 2021-05-16 06:30 | NUR ---
RN CLOSING NOTE PT IS AWAKE IN BED AT THIS TIME. NO SOB OR RESPIRATORY DISTRESS NOTED. PT REMAINED STABLE THROUGHOUT SHIFT, NO PAIN OR DISCOMFORT. IV ACCESS INTACT,PATENT AND FLUSHING WELL. BED IN LOCKED POSITION, CALL LIGHT AND TABLE WITHIN REACH. SIDE RAILS UPX2. SITTER AT BEDSIDE. WILL ENDORSE TO DAY SHIFT NURSE
[2021-05-16 06:50] LABS: ALBUMIN 3.2 g/dL (3.4-5.0); BILIRUBIN,TOTAL 0.9 mg/dL (0.2-1.0); CALCIUM, SERUM 8.7 mg/dL (8.5-10.1); MAGNESIUM 2.1 mg/dL (1.8-2.4); PHOSPHORUS 3.3 mg/dL (2.5-4.9); POTASSIUM 4.1 mmol/L (3.5-5.1); TOTAL PROTEIN, SERUM 6.9 g/dL (6.4-8.2)
--- NOTE | 2021-05-16 07:45 | NUR ---
MS RN OPENING NOTES RECEIVED PATIENT IN BED, A/O X2. PATIENT ON ROOM AIR; BREATHING EVEN AND UNLABORED, NO COMPLAINS OF PAIN. MONY G # 20 AND RFA G # 22 IV ACCESS PRESENT AND INTACT. SAFETY PRECAUTIONS IN PLACE; BED IN LOW POSITION AND LOCKED, RAILS UP X2, CALL LIGHT WITHIN REACH. WILL CONTINUE TO MONITOR PATIENT.
[2021-05-16] MEDS: DOCUSATE SODIUM 100 MG CAPSULE PO SCH (08:30)
[2021-05-16] MEDS: DIVALPROEX SODIUM 125 MG CAP.SPRINK PO SCH (08:30)
[2021-05-16] MEDS: MULTIVITAMINS,THERAGRAN 1 UDTAB TABLET PO SCH (08:30)
[2021-05-16] MEDS: PANTOPRAZOLE 40 MG TABLET.DR PO SCH (08:30)
[2021-05-16] MEDS: QUETIAPINE FUMARATE 25 MG TABLET PO SCH (08:31)
[2021-05-16] MEDS ORDERED: DIVA250T PO (08:57)
[2021-05-16] MEDS ORDERED: QUET25TA PO (08:57)
[2021-05-16] MEDS ORDERED: SERTRALINE HCL 50 MG TABLET PO SCH (09:00)
--- NOTE | 2021-05-16 09:48 | NUR ---
WOUND CARE CONSULT: PT PRESENTS WITH DRESSINGS TO BILATERAL ARMS AND SKIN TEARS NOTED IN PHOTOS. PT PREVIOUSLY HAD VERY FRAGILE SKIN WITH DISCOLORATION, UPON ADMISSION. RECOMMENDATIONS MADE FOR SKIN PROTECTION AND WOUND CARE. DISCUSSED WITH NURSING STAFF. MD IN AGREEMENT WITH PLAN OF CARE.
--- NOTE | 2021-05-16 11:42 | NUR ---
MS PROFESSOR OF KINESIOLOGY NOTES PATIENT DISCHARGED HOME IN MEDICALLY STABLE CONDITION. PATIENT ON ROOM AIR, A/O X2. PRESENT AT BED SITE. ALL DISCHARGE PAPERWORK READY AND TEACHING PROVIDED TO PATIENT REGARDING PHYSICIAN DISCHARGE INSTRUCTIONS, FOLLOW UP AND MEDICATION TEACHING; VERBALIZED UNDERSTANDING AND PAPERS WERE SIGNED. BELONGINGS ACCOUNTED FOR AND PAPERWORK SIGNED WELL. WOUND CARE PROVIDED BEFORE PATIENT LEFT. IV LINES REMOVED, PHOTOS OF WOUNDS TAKE. PATIENT LEFT THE FLOOR VIA WHEELCHAIR ACCOMPANIED BY CLINICAL RECRUITER AND AT 1115
== END 2021-05-16 11:15 | disposition home or self-care (01) | DRG 640 ==
LOC: ER 12:35 → TELE 15:32 → MED 05-14 11:26
PROVIDERS: ADMIT Nurse Practitioner Acute Care; ATTEND Nurse Practitioner Acute Care
DX: E86.0 Dehydration (principal); G93.41 Metabolic encephalopathy; J98.11 Atelectasis; E87.1 Hypo-osmolality and hyponatremia; R79.89 Other specified abnormal findings of blood chemistry; F32.9 Major depressive disorder, single episode, unspecified; F41.9 Anxiety disorder, unspecified; Z20.822 Contact with and (suspected) exposure to COVID-19; J44.9 Chronic obstructive pulmonary disease, unspecified; F17.210 Nicotine dependence, cigarettes, uncomplicated; Z89.421 Acquired absence of other right toe(s); Z98.1 Arthrodesis status; Z79.51 Long term (current) use of inhaled steroids; Z79.899 Other long term (current) drug therapy; T43.225A Adverse effect of selective serotonin reuptake inhibitors, initial encounter; Y92.9 Unspecified place or not applicable; G30.0 Alzheimer's disease with early onset; F02.80 Dementia in other diseases classified elsewhere, unspecified severity, without behavioral disturbance, psychotic disturbance, mood disturbance, and anxiety; I50.9 Heart failure, unspecified; K80.20 Calculus of gallbladder without cholecystitis without obstruction; F39 Unspecified mood [affective] disorder; F29 Unspecified psychosis not due to a substance or known physiological condition
CPT/HCPCS: 36415; 71045-TC; 71250-TC; 76536-TC; 80048-TC; 80053-TC; 80061-TC; 81001; 82140-TC; 83735-TC; 83880; 84100-TC; 84439-TC; 84443-TC; 84480; 84484-TC; 85025-TC; 85730-TC; 87081-TC; 93307-TC; A6403; C9803; G0378; J1940; J2060; J7030

== ENCOUNTER 2021-07-02 18:41 | Emergency (ER) | payer OTHER ==
[~2021-07-02] VITALS: Ht 175.3 cm; Wt 66.2 kg
[~2021-07-02 18:41] MED LIST changes: +DIVA250T PO; +QUET25TA PO
--- NOTE | 2021-07-02 19:05 | NUR ---
PATIENT BIBRA88 HOME, PER , PATIENT HAS GENERALIZED WEAKNESS. PT TAKING LEVAQUIN PO UNKNOWN DX. PATIENT IS A/O X 4, RR EVEN AND UNLABORED, NO SIGNS OF SOB NOTED. PATIENT CONNECTED TO CARDIAC AND POX MONITOR.
[2021-07-02] MEDS: IV NS 0.9% 500 ML BAG IV ONE (19:48)
[2021-07-02 19:57] LABS: BASOPHILS % (AUTO) 0.5 % (0.0-2.0); EOSINOPHILS % (AUTO) 1.1 % (0.0-6.0); HEMATOCRIT 43 % (39-51); LYMPHOCYTES # (AUTO) 0.7 K/uL (0.8-4.8); LYMPHOCYTES % (AUTO) 10.5 % (20.0-44.0); MEAN CORPUSCULAR HGB CONC 33 g/dl (31.0-36.0); MEAN CORPUSCULAR VOLUME 87 fL (80-96); MONOCYTES # (AUTO) 0.5 K/uL (0.1-1.30); MONOCYTES % (AUTO) 8.3 % (2.0-12.0); NEUTROPHILS % (AUTO) 79.6 % (43.0-81.0); PLATELET COUNT (AUTO) 195 K/uL (150-450); RED BLOOD CELL COUNT(AUTO) 4.92 MIL/uL (4.5-6.0); WHITE BLOOD COUNT (AUTO) 6.3 K/uL (4.3-11.0)
[2021-07-02 20:32] LABS: ALANINE AMINOTRANSFERASE 17 U/L (12-78); ALBUMIN 3.2 g/dL (3.4-5.0); ALKALINE PHOSPHATASE 76 U/L (46-116); ASPARTATE AMINOTRANSFERASE 15 U/L (15-37); BILIRUBIN,DIRECT 0.2 mg/dL (0.0-0.2); BILIRUBIN,TOTAL 0.7 mg/dL (0.2-1.0); CALCIUM, SERUM 9.1 mg/dL (8.5-10.1); CARBON DIOXIDE 28 mmol/L (21-32); CHLORIDE 104 mmol/L (98-107); CREATININE 0.7 mg/dL (0.6-1.3); GLUCOSE 94 mg/dL (74-106); POTASSIUM 4.4 mmol/L (3.5-5.1); SODIUM SERUM 141 mmol/L (136-145); TOTAL PROTEIN, SERUM 6.9 g/dL (6.4-8.2); UREA NITROGEN, BLOOD 16 mg/dL (7-18)
--- NOTE | 2021-07-02 20:52 | NUR ---
Patient discharged to home in stable condition. Written and verbal after care instructions given. Patient verbalizes understanding of instruction.
[2021-07-02 21:33] VITALS: BP 127/76
[2021-07-02 22:48] LABS: THYROID STIMULATING HORMONE 1.493 uIU/mL (0.358-3.74)
== END 2021-07-02 20:55 | disposition home or self-care (01) ==
LOC: ER 18:51
DX: R53.1 Weakness (principal); H91.90 Unspecified hearing loss, unspecified ear; F03.90 Unspecified dementia, unspecified severity, without behavioral disturbance, psychotic disturbance, mood disturbance, and anxiety; Z98.890 Other specified postprocedural states; Z88.8 Allergy status to other drugs, medicaments and biological substances; Z88.9 Allergy status to unspecified drugs, medicaments and biological substances; Z79.899 Other long term (current) drug therapy
CPT/HCPCS: 36415; 71045-TC; 80048-TC; 80076-TC; 84443-TC; 84484-TC; 85025-TC

== ENCOUNTER 2021-07-16 08:27 | Inpatient (IN) | payer OTHER ==
[~2021-07-16] VITALS: Ht 175.3 cm; Wt 62.1 kg
[2021-07-16 08:57] LABS: BASOPHILS # (AUTO) 0.1 K/uL (0.0-0.2); BASOPHILS % (AUTO) 0.6 % (0.0-2.0); EOSINOPHILS % (AUTO) 0.3 % (0.0-6.0); HEMATOCRIT 44 % (39-51); HEMOGLOBIN 14.7 g/dL (13.5-17.5); LYMPHOCYTES # (AUTO) 0.5 K/uL (0.8-4.8); LYMPHOCYTES % (AUTO) 4.3 % (20.0-44.0); MEAN CORPUSCULAR HGB CONC 33 g/dl (31.0-36.0); MEAN CORPUSCULAR VOLUME 87 fL (80-96); MONOCYTES # (AUTO) 0.7 K/uL (0.1-1.30); NEUTROPHILS # (AUTO) 9.2 K/uL (1.8-8.9); NEUTROPHILS % (AUTO) 87.8 % (43.0-81.0); PLATELET COUNT (AUTO) 217 K/uL (150-450); RED BLOOD CELL COUNT(AUTO) 5.09 MIL/uL (4.5-6.0); WHITE BLOOD COUNT (AUTO) 10.5 K/uL (4.3-11.0)
[2021-07-16 09:03] LABS: CALCIUM, SERUM 9.7 mg/dL (8.5-10.1); CARBON DIOXIDE 30 mmol/L (21-32); CHLORIDE 105 mmol/L (98-107); CREATININE 0.9 mg/dL (0.6-1.3); GLUCOSE 131 mg/dL (74-106); SODIUM SERUM 143 mmol/L (136-145); UREA NITROGEN, BLOOD 21 mg/dL (7-18)
--- NOTE | 2021-07-16 09:08 | NUR ---
5[address] BY [address] PLACED IN THE CHART.
[2021-07-16 09:09] LABS: ACETAMINOPHEN 0 ug/ml (10-30); ALANINE AMINOTRANSFERASE 14 U/L (12-78); ALBUMIN 3.7 g/dL (3.4-5.0); ALCOHOL, BLOOD < 3 mg/dL (0-0); ALKALINE PHOSPHATASE 96 U/L (46-116); ASPARTATE AMINOTRANSFERASE 20 U/L (15-37); BILIRUBIN,DIRECT 0.3 mg/dL (0.0-0.2); BILIRUBIN,TOTAL 1.1 mg/dL (0.2-1.0)
--- NOTE | 2021-07-16 09:21 | NUR ---
COVID SWAB DONE AND SENT TO THE LAB
[2021-07-16] MEDS ORDERED: OLANZAPINE 5 MG TABLET PO ONE (09:30)
--- NOTE | 2021-07-16 09:32 | NUR ---
RECEIVED A CALL FROM A SENIOR EXECUTIVE COMPENSATION ANALYST PAYAL [phone]
[2021-07-16] MEDS ORDERED: ARIP15TA3 PO (09:37)
[2021-07-16] MEDS ORDERED: LEVO75TA7 PO (09:37)
[2021-07-16] MEDS ORDERED: OLANZAPINE 5 MG TABLET ONE (09:51)
--- NOTE | 2021-07-16 10:30 | NUR ---
SS Note TC contacted pt's nuclear medicine officer, Bassem Lopez, cell: [phone], office: [phone]. Bassem informed SW that the pt is on supervised release. Bassem instructed SW to have pt review and sign RADHA for pt's outpatient therapist and psychiatrist. Bassem to fax SW RADHA's. TC will f/u.
--- NOTE | 2021-07-16 13:28 | NUR ---
BED 214A
--- NOTE | 2021-07-16 13:40 | NUR ---
REPORT GIVEN TO ASHIA FOR PUMA
--- NOTE | 2021-07-16 13:42 | NUR ---
URINE COLLECTED AND SENT TO THE LAB
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
[2021-07-16 13:59] LABS: BILIRUBIN,URINE SMALL (NEGATIVE); COLOR,URINE YELLOW (YELLOW); LEUKOCYTE ESTERASE ,URINE Negative (NEGATIVE); NITRITE, URINE Negative (NEGATIVE); PH,URINE 5.5 (5.0-8.0); PROTEIN,URINE 30 mg/dl (NEGATIVE); UGLUCOSE Negative (NEGATIVE); UROBILINOGEN,URINE 0.2 EU/dL (0.2)
[2021-07-16] MEDS ORDERED: MAG HYDROX/AL HYDROX/SIMETH 30 ML UDC PO PRN (14:00)
[2021-07-16] MEDS ORDERED: BLOOD SUGAR DIAGNOSTIC 1 EACH STRIP IN ONE (14:00)
[2021-07-16] MEDS ORDERED: ACETAMINOPHEN 325 MG TABLET PO PRN (14:00)
[2021-07-16] MEDS ORDERED: MAGNESIUM HYDROXIDE 30 ML UDC PO PRN (14:00)
[2021-07-16 14:04] LABS: BACTERIA,URINE None seen /HPF (None Seen); RBC,URINE 0-2 /HPF (0-2); SQUAMOUS EPITHELIAL CELL,UR Rare /HPF (None Seen); WBC,URINE 0-2 /HPF (0-3)
[2021-07-16] MEDS: clonazePAM 0.5 MG TABLET PO PRN (14:58)
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
[2021-07-16 15:45] VITALS: BP 100/61
[2021-07-16 16:00] VITALS: BP 105/61
[2021-07-16 21:55] VITALS: BP 116/76
[2021-07-17 07:05] LABS: ALBUMIN 3.5 g/dL (3.4-5.0); BILIRUBIN,TOTAL 1.3 mg/dL (0.2-1.0); CALCIUM, SERUM 9.3 mg/dL (8.5-10.1); CREATININE 0.8 mg/dL (0.6-1.3); POTASSIUM 4.5 mmol/L (3.5-5.1); TOTAL PROTEIN, SERUM 7.5 g/dL (6.4-8.2)
[2021-07-17 08:00] VITALS: BP 111/81
[2021-07-17] MEDS: clonazePAM 0.5 MG TABLET PO PRN ×2 (10:16→14:51)
--- NOTE | 2021-07-17 10:17 | NUR ---
RN NOTE: ANXIETY AND AGITATION PT C/O HAVING A "PANIC ATTACK". VISIBLY SHAKING BREATHING FAST. KLONOPIN 0.5 MG PO PRN ADMINISTERED. O2 SATURATION 96%
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
--- NOTE | 2021-07-17 15:09 | NUR ---
Initial Discharge Plan Pt will return to his prior living arrangement at home with his spouse [[address] [place] [address];[phone]] or will be D/C to a B&C. SW will work with the pt and the MD regarding appropriate D/C planning. SW will form a safe and proper D/C plan.
--- NOTE | 2021-07-17 15:15 | NUR ---
Family Contact TC contacted pt's spouse, Cathy Higgins, , to discuss plan of care. TC left Cathy a voicemail.
[2021-07-17 16:00] VITALS: BP 120/76
[2021-07-17 21:02] VITALS: BP 111/80
[2021-07-17] MEDS: QUETIAPINE FUMARATE 25 MG TABLET PO SCH (21:29)
[2021-07-18 08:00] VITALS: BP 115/65
[2021-07-18] MEDS: QUETIAPINE FUMARATE 25 MG TABLET PO SCH ×2 (08:20→17:01)
[2021-07-18] MEDS: MULTIVITAMINS,THERAGRAN 1 UDTAB TABLET PO SCH (08:20)
[2021-07-18] MEDS: LEVOTHYROXINE SODIUM 75 MCG TABLET PO SCH (08:20)
--- NOTE | 2021-07-18 08:20 | NUR ---
WOUND CARE CONSULT: PT PRESENTS WITH SKIN TEARS TO BILATERAL ARMS, PRESENT ON ADMISSION. RECOMMENDATIONS MADE FOR SKIN PROTECTION AND WOUND CARE. DISCUSSED WITH NURSING STAFF. IN AGREEMENT WITH PLAN OF CARE. Addendum: 07/18/21 at 0820 by NILAM HARTMAN WNDNU Amended: Links added.
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
[2021-07-18 16:00] VITALS: BP 138/88
[2021-07-18 20:49] VITALS: BP 134/93
[2021-07-19] MEDS: TEMAZEPAM 7.5 MG CAPSULE PO PRN (00:48)
[2021-07-19 08:00] VITALS: BP 101/70
[2021-07-19] MEDS: MULTIVITAMINS,THERAGRAN 1 UDTAB TABLET PO SCH (08:58)
[2021-07-19] MEDS: LEVOTHYROXINE SODIUM 75 MCG TABLET PO SCH (08:58)
[2021-07-19] MEDS: QUETIAPINE FUMARATE 25 MG TABLET PO SCH ×2 (08:58→16:42)
[2021-07-19 16:00] VITALS: BP 119/90
[2021-07-19 20:36] VITALS: BP 99/58
[2021-07-20] MEDS: TEMAZEPAM 7.5 MG CAPSULE PO PRN (00:18)
--- NOTE | 2021-07-20 00:20 | NUR ---
GPS RN NOTES: RESTORIL 15MG GIVEN PO PRN AT 0018 AT PATIENT REQUEST. WILL CONTINUE TO MONITOR.
[2021-07-20] MEDS: LEVOTHYROXINE SODIUM 75 MCG TABLET PO SCH (06:48)
[2021-07-20 08:00] VITALS: BP 110/80
[2021-07-20] MEDS: MULTIVITAMINS,THERAGRAN 1 UDTAB TABLET PO SCH (08:08)
[2021-07-20] MEDS: QUETIAPINE FUMARATE 25 MG TABLET PO SCH ×2 (08:08→17:43)
[2021-07-20] MEDS: clonazePAM 0.5 MG TABLET PO PRN ×2 (12:43→21:18)
[2021-07-20] MEDS ORDERED: ALBUTEROL FS 2.5 MG/3 ML VIAL.NEB ONE (13:57)
[2021-07-20 16:00] VITALS: BP 128/87
[2021-07-20 20:38] VITALS: BP 123/91
--- NOTE | 2021-07-20 21:21 | NUR ---
RN NOTES ANXIETY PT. C/O FEELING ANXIOUS,PARANOID KLONOPIN 0.5 MG PO PRN, GIVEN PER PT. REQUEST , WILL CONTINUE TO MONITOR.
[2021-07-21] MEDS: TEMAZEPAM 7.5 MG CAPSULE PO PRN (02:09)
--- NOTE | 2021-07-21 02:09 | NUR ---
RN NOTES : PT. C/O UNABLE TO SLEEP RESTORIL 15 MG PO PRN GIVEN PER PT. REQUEST , WILL CONTINUE TO MONITOR.
[2021-07-21] MEDS: LEVOTHYROXINE SODIUM 75 MCG TABLET PO SCH (07:55)
[2021-07-21 08:00] VITALS: BP 124/77
[2021-07-21] MEDS: MULTIVITAMINS,THERAGRAN 1 UDTAB TABLET PO SCH (08:56)
[2021-07-21] MEDS: QUETIAPINE FUMARATE 25 MG TABLET PO SCH ×2 (08:56→17:09)
[2021-07-21 09:24] LABS: BASOPHILS % (AUTO) 0.4 % (0.0-2.0); EOSINOPHILS % (AUTO) 0.8 % (0.0-6.0); HEMATOCRIT 43 % (39-51); HEMOGLOBIN 14.4 g/dL (13.5-17.5); LYMPHOCYTES # (AUTO) 0.6 K/uL (0.8-4.8); LYMPHOCYTES % (AUTO) 6.6 % (20.0-44.0); MEAN CORPUSCULAR HGB CONC 34 g/dl (31.0-36.0); MEAN CORPUSCULAR VOLUME 87 fL (80-96); MONOCYTES # (AUTO) 0.9 K/uL (0.1-1.30); MONOCYTES % (AUTO) 10.4 % (2.0-12.0); NEUTROPHILS # (AUTO) 7.3 K/uL (1.8-8.9); NEUTROPHILS % (AUTO) 81.8 % (43.0-81.0); PLATELET COUNT (AUTO) 244 K/uL (150-450); RED BLOOD CELL COUNT(AUTO) 4.91 MIL/uL (4.5-6.0); WHITE BLOOD COUNT (AUTO) 8.9 K/uL (4.3-11.0)
[2021-07-21 10:13] LABS: CALCIUM, SERUM 9.7 mg/dL (8.5-10.1); CREATININE 0.9 mg/dL (0.6-1.3); MAGNESIUM 2.5 mg/dL (1.8-2.4); PHOSPHORUS 4.2 mg/dL (2.5-4.9); POTASSIUM 4.4 mmol/L (3.5-5.1)
--- NOTE | 2021-07-21 11:11 | NUR ---
UM: 07/18/2021: AUTHORIZATION#[id number] OBTAINED FROM RALPH Goodman WITH [employer] @ [phone]. 6 DAYS APPROVED FROM 07/16/2021 TO 07/21/2021 WITH REVIEW DUE ON 07/21/2021. 07/21/2021:This SW called PARTS ROOM CLERK ASSIGNED: SERGIO Diamond PHONE [phone] and redirected to the voicemail Vero ORTIZ: [phone]. TC left [facility] a voicemail with pt. ARPAN and SW call back number. TC will follow up for authorization.
--- NOTE | 2021-07-21 12:22 | NUR ---
[facility] Referral: Per Bassem Bose request TC spoke to Los porter CM he works with to help with placement. Per Los MONTEZ faxed clinicals to [facility] [[address] [address]; [phone]] [facility]. TC will follow up as needed.
--- NOTE | 2021-07-21 13:33 | NUR ---
UM: TC notified by Bobby from Admissions requesting clinicals to be called in to [place] at [employer] [phone]. SW called and left clinicals to [facility]. SW will be available as needed.
--- NOTE | 2021-07-21 13:35 | NUR ---
Family Contact: SW contacted pt's spouse, Cathy Higgins, , to discuss discharge plan, budget for placement. SW left voicemail. SW will follow up as needed.
[2021-07-21 16:00] VITALS: BP 118/83
[2021-07-21 20:00] VITALS: BP 110/74
[2021-07-21] MEDS: TRAZODONE 50 MG TABLET PO SCH (21:23)
--- NOTE | 2021-07-22 | NUR ---
GPS RN NOTE INSOMNIA PT WOKE UP AND C/O OF UNABLE TO GO BACK TO SLEEP, RESTORIL 15 MG PO GIVEN FOR INSOMNIA. CONTINUE TO MONITOR HIM.
[2021-07-22] MEDS: TEMAZEPAM 7.5 MG CAPSULE PO PRN ×2 (00:04→22:37)
--- NOTE | 2021-07-22 01:00 | NUR ---
GPS RN NOTE PT FALL BACK TO SLEEP.
[2021-07-22 08:00] VITALS: BP 115/82
[2021-07-22] MEDS: LEVOTHYROXINE SODIUM 75 MCG TABLET PO SCH (08:07)
[2021-07-22] MEDS: MULTIVITAMINS,THERAGRAN 1 UDTAB TABLET PO SCH (08:07)
[2021-07-22] MEDS: QUETIAPINE FUMARATE 25 MG TABLET PO SCH ×2 (08:07→17:03)
--- NOTE | 2021-07-22 09:00 | NUR ---
RN NOTE- PT ALERT ORIENTED TO PERSON PLACE PURPOSE SOME CONFUSION, STATES HE'S HAD AH AND VH. DENIES AT PRESENT, MED COMPLIANT FOLLOWS DIRECTION
--- NOTE | 2021-07-22 15:05 | NUR ---
Probable Cause Hearing Pt's 5250 hold was upheld for grave disability.
[2021-07-22 16:00] VITALS: BP 100/69
[2021-07-22] MEDS: ALBUTEROL FS 2.5 MG/3 ML VIAL.NEB NEB PRN ×2 (17:20→17:49)
[2021-07-22 20:23] VITALS: BP 111/72
[2021-07-22] MEDS: TRAZODONE 50 MG TABLET PO SCH ×2 (21:37→22:29)
--- NOTE | 2021-07-22 22:29 | NUR ---
RN NOTES 50 MG GIVEN INITIAL: 25 MG GIVEN AT 2136 THEN 25MG GIVEN AT 2229 REASON: DOSAGE WAS CHANGE FROM 25MG TO 50MG HS
[2021-07-23] MEDS: clonazePAM 0.5 MG TABLET PO PRN ×2 (05:45→12:43)
[2021-07-23 07:57] LABS: ALBUMIN 3.1 g/dL (3.4-5.0); BILIRUBIN,DIRECT 0.3 mg/dL (0.0-0.2); CALCIUM, SERUM 9.1 mg/dL (8.5-10.1); CREATININE 0.8 mg/dL (0.6-1.3); POTASSIUM 3.8 mmol/L (3.5-5.1)
[2021-07-23 08:00] VITALS: BP 135/70
[2021-07-23 08:02] LABS: THYROID STIMULATING HORMONE 1.242 uIU/mL (0.358-3.74)
[2021-07-23] MEDS: LEVOTHYROXINE SODIUM 75 MCG TABLET PO SCH (08:06)
--- NOTE | 2021-07-23 08:10 | NUR ---
RN-CO: RT CALLED FOR BREATHING [place].
[2021-07-23] MEDS: QUETIAPINE FUMARATE 25 MG TABLET PO SCH ×2 (08:25→17:06)
[2021-07-23] MEDS: MULTIVITAMINS,THERAGRAN 1 UDTAB TABLET PO SCH (08:25)
[2021-07-23] MEDS: ALBUTEROL FS 2.5 MG/3 ML VIAL.NEB NEB PRN ×2 (09:09→19:44)
[2021-07-23] MEDS: ENSURE ENLIVE 237 ML LIQUID (VANILLA) PO SCH ×2 (09:52→17:07)
--- NOTE | 2021-07-23 12:01 | NUR ---
Board & Care Referral TC faxed clinicals to [facility]'s placement agency for B&C placement (ph: [phone]; fax: [phone]).
--- NOTE | 2021-07-23 12:43 | NUR ---
RN-CO: KLONOPIN 0.5 MG PO GIVEN FOR C/O ANXIETY.
--- NOTE | 2021-07-23 14:30 | NUR ---
Board & Care Placement Update SW was notified by Silke from placement agency,(ph: [phone]), that the pt has been accepted to [facility] ([address] [place] [address]). Silke stated that pt's monthly payment would be $1900. Silke will be providing transportation for the pt at the time of D/C.
[2021-07-23 16:00] VITALS: BP 97/72
[2021-07-23 16:50] VITALS: BP 113/78
[2021-07-23 20:00] VITALS: BP 124/79
[2021-07-23] MEDS: TRAZODONE 50 MG TABLET PO SCH (21:04)
[2021-07-24] MEDS: TEMAZEPAM 7.5 MG CAPSULE PO PRN (02:27)
[2021-07-24 08:00] VITALS: BP 100/74
[2021-07-24] MEDS: MULTIVITAMINS,THERAGRAN 1 UDTAB TABLET PO SCH (08:40)
[2021-07-24] MEDS: LEVOTHYROXINE SODIUM 75 MCG TABLET PO SCH (08:40)
[2021-07-24] MEDS: QUETIAPINE FUMARATE 25 MG TABLET PO SCH ×3 (08:40→17:00)
[2021-07-24] MEDS: ENSURE ENLIVE 237 ML LIQUID (VANILLA) PO SCH ×2 (08:42→17:00)
--- NOTE | 2021-07-24 08:50 | NUR ---
D/C Planning SW contacted pt's , Cathy, , and notified her that the pt has been accepted to [facility] ([address] [place] [address]; ph: [phone]). Cathy agrees with this D/C plan.
[2021-07-24 16:00] VITALS: BP 101/73
--- NOTE | 2021-07-24 17:08 | NUR ---
RN-NOTES PATIENT C/O CONSTIPATION ,MOM 30ML GIVEN PRN ORDER.WILL MONITOR FOR EFFECTIVENESS AND WILL ENDORSE TO THE INCOMING USE FOR CONTINUITY OF CARE.
[2021-07-24 20:00] VITALS: BP 112/71
[2021-07-24] MEDS: TRAZODONE 50 MG TABLET PO SCH (21:22)
[2021-07-25 08:00] VITALS: BP 110/75
[2021-07-25] MEDS: MULTIVITAMINS,THERAGRAN 1 UDTAB TABLET PO SCH (08:55)
[2021-07-25] MEDS: ENSURE ENLIVE 237 ML LIQUID (VANILLA) PO SCH (08:56)
[2021-07-25] MEDS: QUETIAPINE FUMARATE 25 MG TABLET PO SCH ×2 (08:56→13:12)
[2021-07-25] MEDS: LEVOTHYROXINE SODIUM 75 MCG TABLET PO SCH (08:56)
--- NOTE | 2021-07-25 10:23 | NUR ---
Dr. Huber gave an order to D/C hold and D/C to [facility] and to follow up with psych and medical doctors.
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
--- NOTE | 2021-07-25 15:00 | NUR ---
GPS/RN PT DISCHARGED TO [facility] ([address] [facility] [address]; [phone]) EXITCARE INSTRUCTIONS AND PRESCRIPTIONS PROVIDED. PROPERTY RETURNED. PICTURES MADE ON DISCHARGE. NO SI OR HI REPORTED AT THE TIME OF DISCHARGE. PT LEFT TO [facility] VIA FACILITY ARRANGED TRANSPORTATION.
--- NOTE | 2021-07-25 15:19 | NUR ---
D/C NOTE: Pt. was discharged to [facility] ([address] [facility] [address]; [phone]). Pt will be provided transportation by Silke ([phone]) from the facility at around 2:30 PM. Pts , Cathy Higgins, , was informed and made aware of this discharge. Upon discharge, the pt appeared to be in a euthymic mood and somewhat anxious affect. Pt appears to be oriented x3. Pt denied both suicidal and homicidal ideation as well as auditory and visual hallucinations. Pt will be under the care of psychiatrist, Dr. Danilo Farias MD located at [address] [place], [place] [address]; and route returner, Dr. Kale Oleary located at [address] [facility], [address], [address]; [phone]. The Choice of vendor form and the multidisciplinary exit care form was done, printed, signed, and given to the patient.
== END 2021-07-25 15:00 | disposition home or self-care (01) | DRG 885 ==
LOC: ER 08:29 → GPS 13:35
PROVIDERS: ADMIT Psychiatry & Neurology Psychiatry; ATTEND Student in an Organized Health Care Education/Training Program
DX: F25.9 Schizoaffective disorder, unspecified (principal); F29 Unspecified psychosis not due to a substance or known physiological condition; J44.9 Chronic obstructive pulmonary disease, unspecified; F41.9 Anxiety disorder, unspecified; Z20.822 Contact with and (suspected) exposure to COVID-19; G30.9 Alzheimer's disease, unspecified; F02.80 Dementia in other diseases classified elsewhere, unspecified severity, without behavioral disturbance, psychotic disturbance, mood disturbance, and anxiety; Z88.8 Allergy status to other drugs, medicaments and biological substances; Z79.51 Long term (current) use of inhaled steroids; Z79.890 Hormone replacement therapy; Z79.899 Other long term (current) drug therapy; F31.9 Bipolar disorder, unspecified; M19.90 Unspecified osteoarthritis, unspecified site; E03.9 Hypothyroidism, unspecified; S51.012A Laceration without foreign body of left elbow, initial encounter; W19.XXXA Unspecified fall, initial encounter; Y92.9 Unspecified place or not applicable; R45.850 Homicidal ideations
CPT/HCPCS: 36415; 80048-TC; 80053-TC; 80061-TC; 80076-TC; 81001; 82962-TC; 83735-TC; 84100-TC; 84443-TC; 85025-TC; 87081-TC; 94799-TC; C9803; G0480

== ENCOUNTER 2021-07-29 22:32 | Inpatient (IN) | payer OTHER ==
[~2021-07-29] VITALS: Ht 180.3 cm; Wt 79.4 kg
[~2021-07-29 22:32] MED LIST changes: +ARIP15TA3 PO; -DIVA250T PO; +LEVO75TA7 PO; -QUET25TA PO
--- NOTE | 2021-07-29 22:50 | NUR ---
VERBAL ORDER RECEIVED FROM DR LAUREN TO GIVE NARCAN 0.8 IVP.
[2021-07-29] MEDS ORDERED: NALOXONE PREFILLED SYRINGE 2 MG/2 ML SYRINGE ONE (22:59)
[2021-07-29] MEDS ORDERED: IV NS 0.9% 1,000 ML BAG IV ONE (23:00)
[2021-07-29 23:12] LABS: ABG BASE EXCESS 0.8 mmol/L; ABG OXYGEN SATURATION 97.7 % (92.0-98.5); ABG PCO2 41.5 mmHg (35.0-45.0); ABG PH 7.407 (7.350-7.450); ABG PO2 126.7 mmHg (75.0-100.0); COHb 4.1 % (0.5-1.5); MetHb 0.4 % (0.0-1.5); O2Hb 93.3 % (94.0-97.0); SITE, ABG Right Radial; VENT MODE, BG NASAL CANNULA
[2021-07-29 23:42] LABS: BASOPHILS % (AUTO) 0.6 % (0.0-2.0); EOSINOPHILS % (AUTO) 0.2 % (0.0-6.0); HEMATOCRIT 35 % (39-51); HEMOGLOBIN 11.3 g/dL (13.5-17.5); LYMPHOCYTES # (AUTO) 0.5 K/uL (0.8-4.8); LYMPHOCYTES % (AUTO) 7.2 % (20.0-44.0); MEAN CORPUSCULAR HGB CONC 32 g/dl (31.0-36.0); MEAN CORPUSCULAR VOLUME 87 fL (80-96); MONOCYTES # (AUTO) 0.5 K/uL (0.1-1.30); MONOCYTES % (AUTO) 7.8 % (2.0-12.0); NEUTROPHILS # (AUTO) 5.7 K/uL (1.8-8.9); NEUTROPHILS % (AUTO) 84.2 % (43.0-81.0); PLATELET COUNT (AUTO) 229 K/uL (150-450); RED BLOOD CELL COUNT(AUTO) 4.03 MIL/uL (4.5-6.0); WHITE BLOOD COUNT (AUTO) 6.8 K/uL (4.3-11.0)
--- NOTE | 2021-07-29 23:45 | NUR ---
CALLED POSION CONTROL, SPOKE TO LIONEL. DIRECTIONS TO MONITOR BP, SEIZURE ACTIVITY, WIDENED QT INTERVAL. CALL BACK IF QTC ABOVE 500. REPEAT EKG 4HRS AFTER INITIAL.
[2021-07-29 23:54] LABS: CALCIUM, SERUM 8.5 mg/dL (8.5-10.1); CARBON DIOXIDE 26 mmol/L (21-32); CHLORIDE 106 mmol/L (98-107); CREATININE 0.8 mg/dL (0.6-1.3); GLUCOSE 113 mg/dL (74-106); POTASSIUM 3.8 mmol/L (3.5-5.1); SODIUM SERUM 142 mmol/L (136-145); UREA NITROGEN, BLOOD 14 mg/dL (7-18)
[2021-07-29 23:56] LABS: ALCOHOL, BLOOD < 3 mg/dL (0-0)
[2021-07-29 23:57] LABS: ACETAMINOPHEN < 2 ug/ml (10-30)
[2021-07-30] MEDS ORDERED: NOREPINEPHRINE 8 MG in IV NS 0.9% 250 ML IV ONE
[2021-07-30] MEDS ORDERED: PIPERACILLIN /TAZOBACTAM 3.375 G in IV D5W 50 ML IV ONE
[2021-07-30] MEDS ORDERED: IV NS 0.9% 1,000 ML BAG IV ONE
[2021-07-30 00:06] LABS: ALANINE AMINOTRANSFERASE 18 U/L (12-78); ALBUMIN 2.7 g/dL (3.4-5.0); ALKALINE PHOSPHATASE 63 U/L (46-116); ASPARTATE AMINOTRANSFERASE 22 U/L (15-37); BILIRUBIN,DIRECT 0.1 mg/dL (0.0-0.2); BILIRUBIN,TOTAL 0.4 mg/dL (0.2-1.0); TOTAL PROTEIN, SERUM 6.1 g/dL (6.4-8.2)
--- NOTE | 2021-07-30 00:15 | NUR ---
PATIENT TAKEN TO CT
[2021-07-30] MEDS ORDERED: MAGNESIUM HYDROXIDE 30 ML UDC PO PRN (01:30)
[2021-07-30] MEDS ORDERED: Z GUARD REMEDY 2 OZ OINT TP PRN (01:30)
[2021-07-30] MEDS ORDERED: MAG HYDROX/AL HYDROX/SIMETH 30 ML UDC PO PRN (01:30)
[2021-07-30] MEDS ORDERED: ACETAMINOPHEN 325 MG TABLET PO PRN (01:30)
[2021-07-30] MEDS ORDERED: ONDANSETRON HCL/PF 4 MG/2 ML VIAL IVP PRN (01:30)
--- NOTE | 2021-07-30 01:30 | NUR ---
PATIENT A/O X 2-3 WITH EPISODSE OF CONFUSION, NEEDING TO BE REORIENTATED. PATIENT CONNECTED TO UNIFORMER AND POX. PATIENT IN NO ACUTE DISTRESS AT THIS TIME.
--- NOTE | 2021-07-30 04:00 | NUR ---
URINE SAMPLE COLLECTED AND SENT TO LAB
[2021-07-30 04:12] LABS: BILIRUBIN,URINE Negative (NEGATIVE); COLOR,URINE YELLOW (YELLOW); LEUKOCYTE ESTERASE ,URINE Negative (NEGATIVE); NITRITE, URINE Negative (NEGATIVE); PH,URINE 5.5 (5.0-8.0); PROTEIN,URINE Negative (NEGATIVE); UGLUCOSE Negative (NEGATIVE); UROBILINOGEN,URINE 0.2 EU/dL (0.2)
--- NOTE | 2021-07-30 04:19 | NUR ---
called for room but will be available next shift
--- NOTE | 2021-07-30 07:39 | NUR ---
ROOM ASSIGNMENT: [facility]
--- NOTE | 2021-07-30 07:39 | NUR ---
REPORT GIVEN TO 3 SOFIYA RN
--- NOTE | 2021-07-30 08:00 | NUR ---
Patient from ER via gurney around 8am, AO X 3-4, able to make needs known and can follow simple commands. Patient's admitting diagnosis: altered level of consciousness. Patient has history of COPD, Alzheimer's disease, bipolar, schizophrenia, anxiety, hypothyroidism. Patient can use urinal, on bedrest for now until further order. Patient to have 1:1 sitter at bedside, safety precautions maintained, bed set to lowest position, side rails up X 2. Patient oriented on how to use call lights, bed control, and tv control, RN and Child Care Centre Manager, verbalized understanding and gratitude.
[2021-07-30] MEDS: MULTIVITAMINS,THERAGRAN 1 UDTAB TABLET PO SCH (09:37)
[2021-07-30] MEDS: LEVOTHYROXINE SODIUM 75 MCG TABLET PO SCH (09:37)
[2021-07-30] MEDS: OLANZAPINE 2.5 MG TABLET PO SCH ×2 (11:58→21:00)
--- NOTE | 2021-07-30 12:00 | NUR ---
RN MS NOTES POISON CONTROL CALLED, UPDATE GIVEN ON PT'S CURRENT STATUS AND LAB RESULTS, QTC 400, DIRECTIONS TO MONITOR BP, SEIZURE ACTIVITY, WIDENED QT INTERVAL. CALL BACK IF QTC ABOVE 500.
[2021-07-30] MEDS: IV NS 0.9% 1,000 ML IV PRN (12:17)
[2021-07-30] MEDS: busPIRone 5 MG TABLET PO SCH ×2 (14:09→16:39)
[2021-07-30] MEDS: LORAZEPAM 1 MG TABLET PO PRN (16:43)
--- NOTE | 2021-07-30 18:41 | NUR ---
RN CLOSING NOTES Patient lying in bed, ao x 4, able to make needs known can follow simple commands, no SOB, breathing even and unlabored, denies any pain or discomfort. monitor and storage bin tender shows sinus rhythm 70's, patient denies any dizziness, no headache, no chest pain at this time. Due medications given per MD order. Call light left within reach, all needs attended, kept clean and dry, safety precautions maintained, brakes locked, side rails up X 2, will endorse to next shift for continuity of care.
[2021-07-30 20:00] VITALS: BP 100/72
--- NOTE | 2021-07-30 20:05 | NUR ---
MS RN NOTE RECEIVED PATIENT IN BED WITH EYES OPEN, QUIET. SITTER AT BED SIDE. IV NS RUNNING @ 75ML/HR AT THIS TIME. NO S/S OF APPARENT DISTRESS. NOT EXHIBITING PAIN VIA FLACC. WILL CONTINUE TO MONITOR PATIENT.
[2021-07-31] VITALS: BP 103/41
[2021-07-31] MEDS: IV NS 0.9% 1,000 ML IV PRN ×2 (00:47→14:42)
[2021-07-31 04:00] VITALS: BP 118/80
--- NOTE | 2021-07-31 06:50 | NUR ---
PEEL OVEN TENDER NOTE TALKED TO River () GAVE AN UPDATE ABOUT PATIENT.
--- NOTE | 2021-07-31 06:51 | NUR ---
COCOA MILLING MACHINE OPERATOR CLOSING PATIENT IN BED. A/OX4 AT THE MOMENT. NO S/S OF APPARENT DISTRESS IN 2LPM OF OXYGEN SATURATING 100%. DENIES PAIN. TELE MONITOR READING SINUS RHYTHM IN THE 80'S. SITTER IN ROOM. . PATIENT HAS BEEN PLEASANT AND COMPLIANT WITH MEDICATIONS. IV NS RUNNING @75ML/HR. DID NOT EXHIBIT ANY WITHDRAWALS IN MY SHIFT. WILL ENDORSE CARE TO MORNING SHIFT RN.
[2021-07-31 06:53] LABS: BASOPHILS % (AUTO) 0.4 % (0.0-2.0); EOSINOPHILS % (AUTO) 0.9 % (0.0-6.0); HEMATOCRIT 38 % (39-51); LYMPHOCYTES # (AUTO) 0.7 K/uL (0.8-4.8); LYMPHOCYTES % (AUTO) 7.3 % (20.0-44.0); MEAN CORPUSCULAR HGB CONC 32 g/dl (31.0-36.0); MEAN CORPUSCULAR VOLUME 88 fL (80-96); MONOCYTES # (AUTO) 0.8 K/uL (0.1-1.30); MONOCYTES % (AUTO) 8.7 % (2.0-12.0); NEUTROPHILS # (AUTO) 7.7 K/uL (1.8-8.9); NEUTROPHILS % (AUTO) 82.7 % (43.0-81.0); PLATELET COUNT (AUTO) 231 K/uL (150-450); RED BLOOD CELL COUNT(AUTO) 4.26 MIL/uL (4.5-6.0); WHITE BLOOD COUNT (AUTO) 9.3 K/uL (4.3-11.0)
[2021-07-31] MEDS: LORAZEPAM 1 MG TABLET PO PRN ×2 (07:11→19:32)
[2021-07-31 07:14] LABS: ALBUMIN 2.9 g/dL (3.4-5.0); BILIRUBIN,TOTAL 0.7 mg/dL (0.2-1.0); CALCIUM, SERUM 8.3 mg/dL (8.5-10.1); CREATININE 0.8 mg/dL (0.6-1.3); MAGNESIUM 2.2 mg/dL (1.8-2.4); PHOSPHORUS 3.3 mg/dL (2.5-4.9); POTASSIUM 4.3 mmol/L (3.5-5.1); TOTAL PROTEIN, SERUM 6.6 g/dL (6.4-8.2)
--- NOTE | 2021-07-31 07:30 | NUR ---
PATIENT ACCOUNT SPECIALIST OPENING NOTES RECEIVED PATIENT IN BED. A/OX4 AT THE MOMENT. NO S/S OF APPARENT DISTRESS IN 2LPM OF OXYGEN SATURATING WELL. DENIES PAIN. TELE MONITOR READING SINUS RHYTHM HR AT 70'S. SITTER IN ROOM. ONGOING IV NS RUNNING @75ML/HR. INFUSING WELL, NO S/SX OF INFILTRATION NOTED. SAFETY PRECAUTIONS IN PLACE: BED ON LOWEST LOCKED POSITION, SIDE RAILS UP X 2, CALL LIGHT WITHIN EASY REACH. WILL CONTINUE TO MONITOR ACCORDINGLY.
[2021-07-31] MEDS: LEVOTHYROXINE SODIUM 75 MCG TABLET PO SCH (07:49)
[2021-07-31] MEDS: busPIRone 5 MG TABLET PO SCH ×3 (08:19→17:13)
[2021-07-31] MEDS: MULTIVITAMINS,THERAGRAN 1 UDTAB TABLET PO SCH (08:19)
[2021-07-31] MEDS: OLANZAPINE 2.5 MG TABLET PO SCH ×2 (08:19→21:36)
[2021-07-31] MEDS: ALBUTEROL FS 2.5 MG/3 ML VIAL.NEB NEB PRN ×2 (13:21→22:07)
--- NOTE | 2021-07-31 18:35 | NUR ---
RN NOTES IV DISLODGED, REINSERTED IV G#20 ON PATIENT'S RIGHT HAND. INTACT, PATENT AND INFUSING WELL.
--- NOTE | 2021-07-31 18:55 | NUR ---
MS RN CLOSING NOTES PATIENT IN BED. A/OX4 AT THE MOMENT. NO S/S OF APPARENT DISTRESS IN 2LPM OF OXYGEN SATURATING WELL. DENIES PAIN. ONGOING IV NS RUNNING @75ML/HR. INFUSING WELL ON PATIENT'S RIGHT HAND, NO S/SX OF INFILTRATION NOTED. SITTER AT BED SIDE. SAFETY PRECAUTIONS IN PLACE: BED ON LOWEST LOCKED POSITION, SIDE RAILS UP X 2, CALL LIGHT WITHIN EASY REACH. ALL NEEDS ATTENDED AND MET, DUE MEDS GIVEN ORDERED. WILL ENDORSE TO ONCOMING SHIFT FOR PUMA.
--- NOTE | 2021-07-31 19:15 | NUR ---
CONTINUITY OF CARE Patient is A/O x3. Anxious, restless. Oxygen sat in mid 90's. Ongoing IVF. Patient is on 72 Hour Hold. Sitter at bedside. Fall precaution maintained.
[2021-07-31 20:30] VITALS: BP 118/56
[2021-08-01] MEDS: IV NS 0.9% 1,000 ML IV PRN (03:19)
[2021-08-01 05:28] VITALS: BP 102/76
--- NOTE | 2021-08-01 06:22 | NUR ---
END OF SHIFT REPORT Patient is A/O x3. On supplemental Oxygen at 2L via NC. Anxiety, agitation controlled with Ativan. Adequate sleep. Ongoing IVF. Patient is on 72 Hour Hold. Sitter at bedside. Will endorse to oncoming RN.
[2021-08-01 06:53] LABS: BASOPHILS # (AUTO) 0.1 K/uL (0.0-0.2); BASOPHILS % (AUTO) 0.6 % (0.0-2.0); EOSINOPHILS % (AUTO) 0.7 % (0.0-6.0); HEMATOCRIT 41 % (39-51); HEMOGLOBIN 13.4 g/dL (13.5-17.5); LYMPHOCYTES # (AUTO) 0.7 K/uL (0.8-4.8); LYMPHOCYTES % (AUTO) 6.8 % (20.0-44.0); MEAN CORPUSCULAR HGB CONC 32 g/dl (31.0-36.0); MEAN CORPUSCULAR VOLUME 88 fL (80-96); MONOCYTES % (AUTO) 9.5 % (2.0-12.0); NEUTROPHILS # (AUTO) 8.5 K/uL (1.8-8.9); NEUTROPHILS % (AUTO) 82.4 % (43.0-81.0); PLATELET COUNT (AUTO) 268 K/uL (150-450); RED BLOOD CELL COUNT(AUTO) 4.71 MIL/uL (4.5-6.0); WHITE BLOOD COUNT (AUTO) 10.3 K/uL (4.3-11.0)
[2021-08-01 07:11] LABS: CALCIUM, SERUM 8.8 mg/dL (8.5-10.1); CREATININE 0.8 mg/dL (0.6-1.3); POTASSIUM 4.5 mmol/L (3.5-5.1)
--- NOTE | 2021-08-01 07:50 | NUR ---
MS/RN OPENING NOTES RECEIVED PATIENT IN BED. A/OX4 AT THE MOMENT. NO S/S OF APPARENT DISTRESS IN 2LPM OF OXYGEN SATURATING WELL. DENIES PAIN. SITTER IN ROOM. ONGOING IV NS RUNNING @75ML/HR. INFUSING WELL, NO S/SX OF INFILTRATION NOTED. SAFETY PRECAUTIONS IN PLACE: BED ON LOWEST LOCKED POSITION, SIDE RAILS UP X 2, CALL LIGHT WITHIN EASY REACH. WILL CONTINUE TO MONITOR.
[2021-08-01] MEDS: LEVOTHYROXINE SODIUM 75 MCG TABLET PO SCH (08:47)
[2021-08-01] MEDS: MULTIVITAMINS,THERAGRAN 1 UDTAB TABLET PO SCH (08:47)
[2021-08-01] MEDS: busPIRone 5 MG TABLET PO SCH ×2 (08:47→12:25)
[2021-08-01] MEDS: OLANZAPINE 2.5 MG TABLET PO SCH (08:48)
[2021-08-01] MEDS: LORAZEPAM 1 MG TABLET PO PRN (09:51)
--- NOTE | 2021-08-01 09:58 | NUR ---
SS note TC contacted Silke ([phone]) from [facility] ([address] [facility] [address]; [phone]) and confirmed that the pt is able to return to the assisted living at the time of D/C. Silke stated that she will be able to provide transportation for the pt.
--- NOTE | 2021-08-01 11:59 | NUR ---
MS/RN OPENING NOTES RECEIVED PATIENT IN BED. A/OX4 AT THE MOMENT. NO S/S OF APPARENT DISTRESS IN 2LPM OF OXYGEN SATURATING WELL. DENIES PAIN. SITTER IN ROOM. ONGOING IV NS RUNNING @75ML/HR. INFUSING WELL, NO S/SX OF INFILTRATION NOTED. SAFETY PRECAUTIONS IN PLACE: BED ON LOWEST LOCKED POSITION, SIDE RAILS UP X 2, CALL LIGHT WITHIN EASY REACH. WILL CONTINUE TO MONITOR. Addendum: 08/01/21 at 1200 by INDERJIT SAMPSON RN ERROR
--- NOTE | 2021-08-01 16:49 | NUR ---
MS/PARKING INSPECTOR NOTES PATIENT IS MEDICALLY STABLE AND DR. VINCENT ORDERED DISCHARGE FOR THIS PATIENT. PATIENT IS DISCHARGE BACK TO [facility]. IV ACCESS DISCONTINUED, PATIENT WAS PICKED UP BY NON-EMERGENCY TRANSPORTATION.
[2021-08-01] MEDS ORDERED: clonazePAM 0.5 MG TABLET PO SCH (17:00)
[2021-08-01] MEDS ORDERED: OLANZAPINE 2.5 MG TABLET PO SCH (21:00)
== END 2021-08-01 16:45 | DRG 917 ==
LOC: ER 22:32 → TRANSITION 07-30 04:40 → TELE 07-30 07:53 → MED 07-31 11:21
PROVIDERS: ADMIT Family Medicine; ATTEND Family Medicine
DX: T50.901A Poisoning by unspecified drugs, medicaments and biological substances, accidental (unintentional), initial encounter (principal); G92 Toxic encephalopathy; E44.0 Moderate protein-calorie malnutrition; J44.9 Chronic obstructive pulmonary disease, unspecified; Z20.822 Contact with and (suspected) exposure to COVID-19; Y92.009 Unspecified place in unspecified non-institutional (private) residence as the place of occurrence of the external cause; F03.90 Unspecified dementia, unspecified severity, without behavioral disturbance, psychotic disturbance, mood disturbance, and anxiety; F32.9 Major depressive disorder, single episode, unspecified; Z79.899 Other long term (current) drug therapy; Z79.51 Long term (current) use of inhaled steroids; D63.8 Anemia in other chronic diseases classified elsewhere; E03.9 Hypothyroidism, unspecified; F25.9 Schizoaffective disorder, unspecified; F41.9 Anxiety disorder, unspecified
CPT/HCPCS: 36415; 36600; 70450-TC; 71045-TC; 80048-TC; 80053-TC; 80076-TC; 82803-TC; 83605-TC; 83690-TC; 83735-TC; 83880; 84100-TC; 84484-TC; 85025-TC; 85730-TC; 87040-TC; 87081-TC; 87086-TC; 92526; 92611-TC; 94799-TC; A6403; G0378; G0480; J2310; J2405; J2543; J7030; J7060; U0003

== ENCOUNTER 2021-10-29 12:20 | Emergency (ER) | payer MEDICARE, OTHER ==
[~2021-10-29] VITALS: Ht 180.3 cm; Wt 79.8 kg
[2021-10-29 12:29] VITALS: BP 113/61
--- NOTE | 2021-10-29 12:57 | NUR ---
BIB RA 99 FROM HOME,EPISODE OF AGITATION SAYING THAT HIS IS NOT GIVING HIS MEDICATION, CALLED 911 BECAUSE HE LOCKED HER OUT. THE PATIENT IS ALERT AND ORIENTED X3. DENIES PAIN. IN ROOM AIR AND DENIES SOB. RESPIRATION REGULAR AND UNLABORED. WILL CONTINUE TO MONITOR THE PATIENT.
--- NOTE | 2021-10-29 15:37 | NUR ---
Patient does not wish to proceed with medical care recommended by Dr. Montero. Patient given information related to possible complications, up to and including , which could occur as a result of leaving the hospital at this time. Patient verbalizes understanding of risks involved due to leaving against medical advice. Patient has signed AMA form.
== END 2021-10-29 15:37 | disposition left against medical advice (07) ==
LOC: ER 12:52
DX: J44.9 Chronic obstructive pulmonary disease, unspecified (principal); Z88.8 Allergy status to other drugs, medicaments and biological substances

== ENCOUNTER 2021-11-13 11:14 | Inpatient (IN) | payer OTHER ==
[~2021-11-13] VITALS: Ht 175.3 cm; Wt 75.3 kg
[~2021-11-13 11:14] MED LIST changes: +LEVO500T90 PO
--- NOTE | 2021-11-13 11:14 | NUR ---
PT JOSH FROM [facility] [employer] C/O BEHAVIORAL "HE KEEPS TRYING TO LEAVE THE FACILITY" PT IS AAOX3, NOT IN RESPIRATORY DISTRESS, V/S STABLE, KEPT RESTED AND COMFORTABLE. WILL CONTINUE TO MONITOR.
--- NOTE | 2021-11-13 11:40 | NUR ---
URINE SPECIMEN COLLECTED AND SENT TO LAB.
--- NOTE | 2021-11-13 12:04 | NUR ---
COVID SWAB DONE AND SENT TO LAB
[2021-11-13 12:11] LABS: BASOPHILS % (AUTO) 0.4 % (0.0-2.0); EOSINOPHILS % (AUTO) 0.5 % (0.0-6.0); HEMATOCRIT 44 % (39-51); HEMOGLOBIN 14.3 g/dL (13.5-17.5); LYMPHOCYTES # (AUTO) 0.8 K/uL (0.8-4.8); LYMPHOCYTES % (AUTO) 7.3 % (20.0-44.0); MEAN CORPUSCULAR HGB CONC 33 g/dl (31.0-36.0); MEAN CORPUSCULAR VOLUME 86 fL (80-96); MONOCYTES # (AUTO) 1.1 K/uL (0.1-1.30); MONOCYTES % (AUTO) 10.7 % (2.0-12.0); NEUTROPHILS # (AUTO) 8.4 K/uL (1.8-8.9); NEUTROPHILS % (AUTO) 81.1 % (43.0-81.0); PLATELET COUNT (AUTO) 165 K/uL (150-450); RED BLOOD CELL COUNT(AUTO) 5.15 MIL/uL (4.5-6.0); WHITE BLOOD COUNT (AUTO) 10.4 K/uL (4.3-11.0)
[2021-11-13 12:50] LABS: ALANINE AMINOTRANSFERASE 24 U/L (12-78); ALBUMIN 3.3 g/dL (3.4-5.0); ALKALINE PHOSPHATASE 72 U/L (46-116); ASPARTATE AMINOTRANSFERASE 18 U/L (15-37); BILIRUBIN,DIRECT 0.2 mg/dL (0.0-0.2); BILIRUBIN,TOTAL 0.5 mg/dL (0.2-1.0); CALCIUM, SERUM 8.7 mg/dL (8.5-10.1); CARBON DIOXIDE 27 mmol/L (21-32); CHLORIDE 99 mmol/L (98-107); CREATININE 1.1 mg/dL (0.6-1.3); GLUCOSE 99 mg/dL (74-106); POTASSIUM 4.6 mmol/L (3.5-5.1); SODIUM SERUM 137 mmol/L (136-145); TOTAL PROTEIN, SERUM 6.9 g/dL (6.4-8.2); UREA NITROGEN, BLOOD 18 mg/dL (7-18)
[2021-11-13 12:51] LABS: ACETAMINOPHEN 0 ug/ml (10-30); ALCOHOL, BLOOD < 3 mg/dL (0-0)
[2021-11-13 13:21] LABS: BILIRUBIN,URINE NEGATIVE (NEGATIVE); COLOR,URINE YELLOW (YELLOW); LEUKOCYTE ESTERASE ,URINE NEGATIVE (NEGATIVE); NITRITE, URINE NEGATIVE (NEGATIVE); PROTEIN,URINE NEGATIVE (NEGATIVE); UGLUCOSE NEGATIVE (NEGATIVE); UROBILINOGEN,URINE 0.2 EU/dL (0.2)
--- NOTE | 2021-11-13 13:45 | NUR ---
MOVE SHEET SUBMITTED.
[2021-11-13] MEDS ORDERED: OLAN5TAB3 PO (13:47)
[2021-11-13] MEDS ORDERED: TRAZ-257 PO (13:47)
[2021-11-13] MEDS ORDERED: LORA-258 PO (14:00)
--- NOTE | 2021-11-13 14:14 | NUR ---
CALLED HOUSE SUP FOR BED, NO BEDS AVAILABLE AT THIS TIME.
--- NOTE | 2021-11-13 14:46 | NUR ---
GOT BED 211-A
--- NOTE | 2021-11-13 15:49 | NUR ---
Social Work Note/Substance Abuse Intervention: Patient was provided with a brief substance abuse intervention and referred to [facility] ([phone]), [facility] ([phone]), and [facility] ([phone]) for smoking cigarettes.
--- NOTE | 2021-11-13 16:05 | NUR ---
TC Initial Discharge Plan: Patient will return back to [facility]. TC spoke with Jeff ([phone]) who stated pt is welcomed back. TC will work with the treatment team and MD to help coordinate appropriate dc.
[2021-11-13 16:30] VITALS: BP 130/78
[2021-11-13] MEDS ORDERED: ACETAMINOPHEN 325 MG TABLET PO PRN (16:30)
[2021-11-13] MEDS ORDERED: MAG HYDROX/AL HYDROX/SIMETH 30 ML UDC PO PRN (16:30)
[2021-11-13] MEDS ORDERED: BLOOD SUGAR DIAGNOSTIC 1 EACH STRIP IN ONE (16:30)
[2021-11-13] MEDS ORDERED: MAGNESIUM HYDROXIDE 30 ML UDC PO PRN (16:30)
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
[2021-11-13] MEDS: LORAZEPAM 0.5 MG TABLET PO PRN (19:53)
--- NOTE | 2021-11-13 19:53 | NUR ---
GPS RN NOTE, PATIENT HAS A COMPLAINT OF FEELING ANXIOUS AND IS REQUESTING ATIVAN AT THIS TIME. PATIENT VITAL SIGNS ARE STABLE. GAVE ATIVAN 0.5MG PO Q4HR PRN ORDERED. WILL REASSESS FOR ANXIETY AND I WILL CONTINUE TO MONITOR THIS PATIENT WITH THE HELP OF STAFF.
[2021-11-13 20:00] VITALS: BP 124/79
[2021-11-13] MEDS ORDERED: TEMAZEPAM 7.5 MG CAPSULE PO PRN (20:00)
[2021-11-13] MEDS ORDERED: LORAZEPAM 0.5 MG TABLET PO PRN (20:00)
--- NOTE | 2021-11-13 20:04 | NUR ---
GPS RN NOTE, RECEIVED PATIENT AWAKE AND IN BED, PATIENT HAS A COMPLAINT OF CHRONIC LOWER BACK PAIN AT A 4 OUT 10 ON THE PAIN SCALE. PATIENT IS TAKING PAIN MEDICATION FOR THIS PAIN. PATIENT IS DISPLAYING NO S/S OF APPARENT DISTRESS AT THIS TIME. PATIENT BREATHING IS UNLABORED WITH EQUAL RISE AND FALL OF THE CHEST. PATIENT IS ALERT AND ORIENTED X 3 ON ROOM AIR WITH A SPO2 97%. PATIENT IS COMPLIANT WITH MEDICATIONS, ANXIOUS, LABILE, EASILY IRRITABLE, AND COOPERATIVE. PATIENT DENIES SUICIDAL AND HOMICIDAL IDEATIONS AT THIS TIME. PATIENT ASSISTED WITH TURNING AND REPOSITIONING Q2HR AND PRN FOR COMFORT AND CIRCULATION. PATIENT HAS NO NEEDS AT THIS TIME. PATIENT EDUCATED ON THE USE OF THE CALL BRANNON. PATIENT BED SIDE RAILS UP X 2 FOR SAFETY. PATIENT BED IS LOCKED, LOW, WITH BED ALARM ON. WILL CONTINUE TO MONITOR THIS PATIENT Q15 MINUTES WITH THE HELP OF STAFF TO MAINTAIN SAFETY.
[2021-11-14] MEDS ORDERED: ALBUTEROL FS 2.5 MG/3 ML VIAL.NEB NEB PRN
[2021-11-14] MEDS: LORAZEPAM 0.5 MG TABLET PO PRN ×3 (00:31→22:30)
[2021-11-14] MEDS ORDERED: FURO-145 PO (06:37)
[2021-11-14 08:00] VITALS: BP 110/67
[2021-11-14] MEDS: LEVOTHYROXINE SODIUM 75 MCG TABLET PO SCH (08:09)
[2021-11-14 08:55] LABS: ALBUMIN 2.9 g/dL (3.4-5.0); BILIRUBIN,TOTAL 0.8 mg/dL (0.2-1.0); CREATININE 0.9 mg/dL (0.6-1.3); POTASSIUM 5.4 mmol/L (3.5-5.1); TOTAL PROTEIN, SERUM 6.5 g/dL (6.4-8.2)
--- NOTE | 2021-11-14 09:13 | NUR ---
TC Family Contact: TC spoke with patient's Cathy ([phone]) and gathered collateral. She expressed that she is the DPOA and would want pt back to [facility]. was concerned of pt's allergic reactions to medications. would want to speak to assigned psychiatrist. CT notified NATE Larson.
--- NOTE | 2021-11-14 09:55 | NUR ---
Service changed to Dr. Huebr and pt. seen by Kane SULLIVNA of Dr. Huber.
[2021-11-14 10:34] LABS: CALCIUM, SERUM 8.4 mg/dL (8.5-10.1)
[2021-11-14 11:44] LABS: THYROID STIMULATING HORMONE 1.633 uIU/mL (0.358-3.74)
[2021-11-14] MEDS: GABAPENTIN 300 MG CAPSULE PO SCH ×2 (12:10→17:14)
--- NOTE | 2021-11-14 13:32 | NUR ---
Kanwal TELECINE OPERATOR in the unit and told to call the and provided the number and aware about the Levaquin antibiotic. Per Kanwal she reconcile the Levaquin.
--- NOTE | 2021-11-14 13:39 | NUR ---
UR NOTE: AUTHORIZATION# OBTAINED BY EDGARD Garcia [id number] referred to [facility] spoke to Sujti Chang Authorized 11-13,,,,, our UR calls them on 11-18-2021 at [phone] [place] AU NO is [id number], per Bobby Intake.
--- NOTE | 2021-11-14 14:28 | NUR ---
At about 1330 pt. noticed with open skin on the left arm. Cleansed with NS, pat dry and covered with dressing. Picture taken and wound consult triggered. Per pt. he doesn't know what happened.
--- NOTE | 2021-11-14 15:21 | NUR ---
Board and Care: TC contacted Silke from [facility] ([phone]) to discuss if she is able to accept pt back at [facility]. Number not going through. TC sent a text message with personal phone and is waiting for Silke to contact back per pt's Cathy's request.
--- NOTE | 2021-11-14 15:22 | NUR ---
TC Family Contact: TC spoke with patient's Cathy ([phone]) and discussed that [facility] is unable to accept pt back and we would need alternative placements. Cathy stated to contact Silke from [facility] ([phone]) to discuss if they are willing to accept pt back.
[2021-11-14 16:00] VITALS: BP 115/80
--- NOTE | 2021-11-14 18:23 | NUR ---
Kanwal SULLIVAN made aware that Potassium is 5.4 and said ok.
--- NOTE | 2021-11-14 19:27 | NUR ---
GPS RN NOTE, RECEIVED PATIENT AWAKE AND IN BED, DENIES S/S OR COMPLAINTS OF PAIN AT THIS TIME. PATIENT IS DISPLAYING NO S/S OF APPARENT DISTRESS AT THIS TIME. PATIENT BREATHING IS UNLABORED WITH EQUAL RISE AND FALL OF THE CHEST. PATIENT IS ALERT AND ORIENTED X 3 ON ROOM AIR WITH A SPO2 93%. PATIENT IS COMPLIANT WITH MEDICATIONS, ANXIOUS, LABILE, EASILY IRRITABLE, AND COOPERATIVE. PATIENT DENIES SUICIDAL AND HOMICIDAL IDEATIONS AT THIS TIME. PATIENT ASSISTED WITH TURNING AND REPOSITIONING Q2HR AND PRN FOR COMFORT AND CIRCULATION. PATIENT HAS NO NEEDS AT THIS TIME. PATIENT EDUCATED ON THE USE OF THE CALL BRANNON. PATIENT BED SIDE RAILS UP X 2 FOR SAFETY. PATIENT BED IS LOCKED, LOW, WITH BED ALARM ON. WILL CONTINUE TO MONITOR THIS PATIENT Q15 MINUTES WITH THE HELP OF STAFF TO MAINTAIN SAFETY.
[2021-11-14 20:24] VITALS: BP 115/83
[2021-11-14] MEDS: TRAZODONE 50 MG TABLET PO SCH (21:34)
[2021-11-15 08:00] VITALS: BP 110/74
[2021-11-15] MEDS: FUROSEMIDE 20 MG TABLET PO SCH (08:16)
[2021-11-15] MEDS: LEVOTHYROXINE SODIUM 75 MCG TABLET PO SCH (08:16)
[2021-11-15] MEDS: GABAPENTIN 300 MG CAPSULE PO SCH ×3 (08:17→16:07)
[2021-11-15] MEDS: LEVOFLOXACIN (500MG) 500 MG TABLET PO SCH (08:17)
[2021-11-15] MEDS: LORAZEPAM 0.5 MG TABLET PO PRN ×2 (10:28→19:10)
--- NOTE | 2021-11-15 14:41 | NUR ---
Wound cleansed with NS pat dry and cover with bandage. Will continue to monitor.
[2021-11-15 16:00] VITALS: BP_SYST 106; BP_SYST 111; BP_DIAS 61; BP_DIAS 73
--- NOTE | 2021-11-15 19:11 | NUR ---
GPS RN NOTE, PATIENT HAS A COMPLAINT OF FEELING ANXIOUS AND IS REQUESTING ATIVAN AT THIS TIME. PATIENT VITAL SIGNS ARE STABLE. GAVE ATIVAN 0.5MG PO Q6HR PRN ORDERED. WILL REASSESS FOR ANXIETY AND I WILL CONTINUE TO MONITOR THIS PATIENT WITH THE HELP OF STAFF.
--- NOTE | 2021-11-15 19:30 | NUR ---
GPS RN NOTE, RECEIVED PATIENT AWAKE AND IN BED, DENIES S/S OR COMPLAINTS OF PAIN AT THIS TIME. PATIENT IS DISPLAYING NO S/S OF APPARENT DISTRESS AT THIS TIME. PATIENT BREATHING IS UNLABORED WITH EQUAL RISE AND FALL OF THE CHEST. PATIENT IS ALERT AND ORIENTED X 3 ON ROOM AIR WITH A SPO2 95%. PATIENT IS COMPLIANT WITH MEDICATIONS, ANXIOUS, LABILE, EASILY IRRITABLE, AND COOPERATIVE. PATIENT DENIES SUICIDAL AND HOMICIDAL IDEATIONS AT THIS TIME. PATIENT ASSISTED WITH TURNING AND REPOSITIONING Q2HR AND PRN FOR COMFORT AND CIRCULATION. PATIENT HAS NO NEEDS AT THIS TIME. PATIENT EDUCATED ON THE USE OF THE CALL BRANNON. PATIENT BED SIDE RAILS UP X 2 FOR SAFETY. PATIENT BED IS LOCKED, LOW, WITH BED ALARM ON. WILL CONTINUE TO MONITOR THIS PATIENT Q15 MINUTES WITH THE HELP OF STAFF TO MAINTAIN SAFETY.
[2021-11-15 20:09] VITALS: BP 115/73
[2021-11-15] MEDS: TRAZODONE 50 MG TABLET PO SCH (21:30)
[2021-11-16] MEDS: LORAZEPAM 0.5 MG TABLET PO PRN ×3 (03:28→21:50)
[2021-11-16] MEDS: LEVOTHYROXINE SODIUM 75 MCG TABLET PO SCH (07:30)
[2021-11-16 08:00] VITALS: BP 90/59
[2021-11-16] MEDS: FUROSEMIDE 20 MG TABLET PO SCH (08:37)
[2021-11-16] MEDS: GABAPENTIN 300 MG CAPSULE PO SCH ×3 (08:38→16:38)
[2021-11-16] MEDS: LEVOFLOXACIN (500MG) 500 MG TABLET PO SCH (08:38)
[2021-11-16 16:00] VITALS: BP 113/71
--- NOTE | 2021-11-16 18:13 | NUR ---
Patient c/o anxiety medicated with Ativan 0.5mg x1 will continue to monitor .
[2021-11-16 20:00] VITALS: BP 113/87
[2021-11-16] MEDS: TRAZODONE 50 MG TABLET PO SCH (21:50)
[2021-11-17] MEDS: LORAZEPAM 0.5 MG TABLET PO PRN ×2 (00:35→21:15)
[2021-11-17 08:00] VITALS: BP 100/69
[2021-11-17] MEDS: FUROSEMIDE 20 MG TABLET PO SCH (08:11)
[2021-11-17] MEDS: LEVOTHYROXINE SODIUM 75 MCG TABLET PO SCH (08:11)
[2021-11-17] MEDS: GABAPENTIN 100 MG CAPSULE PO SCH ×3 (08:35→17:36)
[2021-11-17] MEDS ORDERED: GABAPENTIN 300 MG CAPSULE PO SCH (09:00)
--- NOTE | 2021-11-17 10:39 | NUR ---
TC Family Contact: TC spoke with patient's Cathy ([phone]) and was concerned of patient's pneumonia. SW discussed that pt has finished his course of antibiotics. SW will request for a chest x-ray for a piece of mind per pt's 's request. as concerned that pt is aggressive. SW indicated that pt is not showing any symptoms and has been cooperative with treatment.
--- NOTE | 2021-11-17 10:47 | NUR ---
Board and Care: SW spoke with admin Silke ([phone]) and she stated pt is welcomed back upon dc located at [facility] ([address] [facility] [address]; [phone]).
--- NOTE | 2021-11-17 10:48 | NUR ---
TC Family Contact: TC spoke with patient's Cathy ([phone]) and she is agreeable of pt returning back to board and care upon dc.
[2021-11-17 16:00] VITALS: BP 100/73
[2021-11-17 20:03] VITALS: BP 145/94
--- NOTE | 2021-11-17 20:29 | NUR ---
RN GPS NOTE; RECEIVED CHEST X-RAY RESULTS FOR PATIENT. TOLD BY CHARGE NURSE FROM CHANGE OF SHIFT REPORT, MUST NOTIFY GAUGE AND WEIGH MACHINE ADJUSTER DOCTOR FOR RESULTS. CALLED GAUGE AND WEIGH MACHINE ADJUSTER DOCTOR, WHICH SHE ALREADY LOOKED AT REGARDING PATIENT'S CHEST X-RAY. NO NEW ORDERS GIVEN. CALLED DOCTOR FOR NO APPARENT PARTICULAR REASON.
[2021-11-17] MEDS ORDERED: TRAZODONE 50 MG TABLET PO SCH (22:00)
[2021-11-18] MEDS: LEVOTHYROXINE SODIUM 75 MCG TABLET PO SCH (06:32)
[2021-11-18 07:45] LABS: BASOPHILS % (AUTO) 0.6 % (0.0-2.0); HEMATOCRIT 44 % (39-51); HEMOGLOBIN 14.5 g/dL (13.5-17.5); LYMPHOCYTES # (AUTO) 0.7 K/uL (0.8-4.8); LYMPHOCYTES % (AUTO) 10.3 % (20.0-44.0); MEAN CORPUSCULAR HGB CONC 33 g/dl (31.0-36.0); MEAN CORPUSCULAR VOLUME 86 fL (80-96); MONOCYTES # (AUTO) 0.7 K/uL (0.1-1.30); MONOCYTES % (AUTO) 11.2 % (2.0-12.0); NEUTROPHILS # (AUTO) 5.1 K/uL (1.8-8.9); NEUTROPHILS % (AUTO) 76.9 % (43.0-81.0); PLATELET COUNT (AUTO) 158 K/uL (150-450); RED BLOOD CELL COUNT(AUTO) 5.15 MIL/uL (4.5-6.0); WHITE BLOOD COUNT (AUTO) 6.6 K/uL (4.3-11.0)
[2021-11-18 08:57] LABS: CALCIUM, SERUM 8.6 mg/dL (8.5-10.1); CREATININE 1.2 mg/dL (0.6-1.3); POTASSIUM 4.9 mmol/L (3.5-5.1)
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
[2021-11-18] MEDS: GABAPENTIN 100 MG CAPSULE PO SCH (09:52)
[2021-11-18] MEDS: FUROSEMIDE 20 MG TABLET PO SCH (09:53)
--- NOTE | 2021-11-18 10:20 | NUR ---
UR NOTE: TC contacted ([phone]) Elham ACHARYA NO is [phone] and left a detailed voicemail of patient's clinicals.
--- NOTE | 2021-11-18 11:12 | NUR ---
SW Transfer Note: Patient will be transferred to the medical floor due to pneumonia and pleural effusion. NATE Larson has been notified and will discontinue the hold. Patient's Cathy ([phone]) is involved in patient's care. Patient was from [facility] and dependency director Jeff ([phone]) is not able to come back due to pt wanting to elope. Patient will return back to his Board and Care called [facility] admin Silke ([phone]) will take pt back when ready. Cathy wants pt at the B & C.
[2021-11-18 11:31] VITALS: BP 103/65
--- NOTE | 2021-11-18 12:30 | NUR ---
Patient refused discharge photo .
--- NOTE | 2021-11-18 12:30 | NUR ---
PATIENT ALERT ,VERBALLY RESPONSIVE ,VS STABLE ,NO SOB ,BP 103/65,P 81,TEMP 97.8 O2 SAT 93%.
--- NOTE | 2021-11-18 12:43 | NUR ---
UTILITY FORESTER NOTE :DR. CASTRO ORDERED TO DISCHARGE PT TO [facility] SURGE DX :Loculated pleural effusion .UNREIN GIACOMO FITZPATRICK FOR NOTIFIED ,DISCONTINUE 5250 HOLD .NURSING SUP AND PATIENT'S NOTIFIED ,REPORT GIVEN TO SANCHEZ COPELAND IN MED SURGE FLOOR .
--- NOTE | 2021-11-18 15:42 | NUR ---
UR Note: SW received a call from Jania who is covering for [facility] social work case manager ([phone]), reference #[id number], who stated that pt is authorized until November 20, 2021 and will require clinical review.
== END 2021-11-18 13:13 | DRG 881 ==
LOC: ER 11:17 → GPS 15:05
PROVIDERS: ADMIT Psychiatry & Neurology Psychiatry; ATTEND Internal Medicine
DX: F32.9 Major depressive disorder, single episode, unspecified (principal); F23 Brief psychotic disorder; E03.9 Hypothyroidism, unspecified; J44.9 Chronic obstructive pulmonary disease, unspecified; F39 Unspecified mood [affective] disorder; I50.9 Heart failure, unspecified; F41.9 Anxiety disorder, unspecified; Z88.8 Allergy status to other drugs, medicaments and biological substances; Z79.899 Other long term (current) drug therapy; Z73.6 Limitation of activities due to disability
CPT/HCPCS: 36415; 71045-TC; 71250-TC; 76536-TC; 80048-TC; 80053-TC; 80061-TC; 80076-TC; 84443-TC; 85025-TC; 87081-TC; C9803; G0480

== ENCOUNTER 2021-11-18 13:27 | Inpatient (IN) | payer OTHER ==
[~2021-11-18] VITALS: Ht 175.3 cm; Wt 75.3 kg
[~2021-11-18 13:27] MED LIST changes: -ALBU18HF2 IH; -ARIP15TA3 PO; +FURO-145 PO; +LORA-258 PO; -MULT-24 PO; -SERT100T PO; +TRAZ-257 PO
--- NOTE | 2021-11-18 14:51 | NUR ---
THORACENTESIS ON HOLD DUE TO NO LABS AND NO CONSENT. DINORAH BANDA TO ORDER INR, PLT COUNT
--- NOTE | 2021-11-18 15:42 | NUR ---
SW Transfer Note: Patient will be transferred to the medical floor due to pneumonia and pleural effusion. NATE Larson has been notified and will discontinue the hold. Patient's Cathy ([phone]) is involved in patient's care. Patient was from [facility] and baker test Jeff ([phone]) is not able to come back due to pt wanting to elope. Patient will return back to his Board and Care called [facility] admin Silke ([phone]) will take pt back when ready. Cathy wants pt at the B & C.
[2021-11-18 16:00] VITALS: BP 123/89
[2021-11-18] MEDS ORDERED: LORAZEPAM 1 MG TABLET PO ONE (17:00)
[2021-11-18] MEDS ORDERED: ACETAMINOPHEN 325 MG TABLET PO PRN (17:00)
[2021-11-18] MEDS ORDERED: MAGNESIUM HYDROXIDE 30 ML UDC PO PRN (17:00)
[2021-11-18] MEDS ORDERED: MAG HYDROX/AL HYDROX/SIMETH 30 ML UDC PO PRN (17:00)
[2021-11-18] MEDS ORDERED: ONDANSETRON HCL/PF 4 MG/2 ML VIAL IVP PRN (17:00)
[2021-11-18] MEDS: NICOTINE PATCH (7MG) 7 MG PATCH.TD24 TD SCH (17:19)
--- NOTE | 2021-11-18 18:35 | NUR ---
MS RN NOTES Pt HAS BEEN ADMITTED TO [facility] UNIT [address] [place]. A/O x3-4. BREATHING ON ROOM AIR AND TOLERATING WELL. NO COMPLAINTS OF PAIN MADE. Pt IS VERY ANXIOUS TO SMOKE CIGARETTES. Pt GETS VERY AGITATED WHEN TOLD HE CANNOT SMOKE. RISKS AND CONSEQUENCES HAVE BEEN EXPLAINED. Pt IS AWAITING A THORACENTESIS DUE TO LEFT PLEURAL EFFUSION. Pt IS AMBULATORY. SAFETY MEASURES ARE IN PLACE: BED IS LOCKED AND IN LOWEST POSITION, SIDE RAILS UPx3. BED SIDE TABLE AND CALL LIGHT ARE WITHIN REACH. WILL ENDORSE TO ONCOMING SHIFT.
--- NOTE | 2021-11-18 19:26 | NUR ---
ms rn notes: belongings No money or phone has been received for pt belonging list.
[2021-11-18 20:00] VITALS: BP 105/77
--- NOTE | 2021-11-18 21:13 | NUR ---
REPORTS GIVEN TO DINORAH GROVER FOR CONTINUITY OF CARE.
--- NOTE | 2021-11-18 21:15 | NUR ---
GORAN RECEIVED REPORT FORM RN. PATIENT IN HIS ROOM, FULLY AWAKE. COOPERATIVE. NO NEEDS MADE. SNACKS CONSUMED. SAFETY PRECAUTIONS EMPHASIZED APPEARS TO UNDERSTAND.
--- NOTE | 2021-11-19 00:01 | NUR ---
MSRN FULLY AWAKE STILL REMAINS CALM AND COOPERATIVE. ALL NEEDS ATTENDED, CLOSELY WATCHED.
[2021-11-19] MEDS: HYDROCODONE/APAP 5/325MG TABLET PO PRN (00:24)
[2021-11-19 06:46] LABS: BASOPHILS # (AUTO) 0.1 K/uL (0.0-0.2); BASOPHILS % (AUTO) 0.8 % (0.0-2.0); EOSINOPHILS % (AUTO) 1.1 % (0.0-6.0); HEMATOCRIT 41 % (39-51); HEMOGLOBIN 13.5 g/dL (13.5-17.5); LYMPHOCYTES # (AUTO) 0.9 K/uL (0.8-4.8); LYMPHOCYTES % (AUTO) 12.4 % (20.0-44.0); MEAN CORPUSCULAR HGB CONC 33 g/dl (31.0-36.0); MEAN CORPUSCULAR VOLUME 85 fL (80-96); MONOCYTES # (AUTO) 0.9 K/uL (0.1-1.30); MONOCYTES % (AUTO) 12.9 % (2.0-12.0); NEUTROPHILS # (AUTO) 5.1 K/uL (1.8-8.9); NEUTROPHILS % (AUTO) 72.8 % (43.0-81.0); PLATELET COUNT (AUTO) 150 K/uL (150-450); RED BLOOD CELL COUNT(AUTO) 4.83 MIL/uL (4.5-6.0); WHITE BLOOD COUNT (AUTO) 6.9 K/uL (4.3-11.0)
--- NOTE | 2021-11-19 06:56 | NUR ---
MSRN SEEN EARLIER COMING OUT FROM RESTROOM, WAS SHORT OF BREATH. ASSISTED BACK TO BED. 02 AT 3L VIA NC. BEDREST INSTRUCTED FOR NOW. GOT BETTER 30 MINUTES AFTER.
[2021-11-19 07:16] LABS: CALCIUM, SERUM 9.5 mg/dL (8.5-10.1); MAGNESIUM 2.4 mg/dL (1.8-2.4); PHOSPHORUS 3.9 mg/dL (2.5-4.9); POTASSIUM 4.5 mmol/L (3.5-5.1)
--- NOTE | 2021-11-19 07:21 | NUR ---
RN NOTES PATIENT SITTING UP IN CHAIR AT BEDSIDE, AWAKE AND VERBALLY RESPONSIVE, NOT IN ACUTE DISTRESS. SPOKE W/ ON THE PHONE AND UPDATED ON PATIENT'S CONDITION AND MED RECON. NO COMPLAINT OF PAIN AT THIS TIME. SAFETY MEASURES IN PLACE. WILL CONTINUE TO MONITOR.
[2021-11-19 08:00] VITALS: BP_SYST 101; BP_SYST 127; BP_DIAS 64; BP_DIAS 79
[2021-11-19] MEDS: GABAPENTIN 400 MG CAPSULE PO SCH ×3 (08:45→16:01)
[2021-11-19] MEDS: NICOTINE PATCH (7MG) 7 MG PATCH.TD24 TD SCH (08:45)
[2021-11-19] MEDS: PANTOPRAZOLE 40 MG TABLET.DR PO SCH (08:45)
--- NOTE | 2021-11-19 09:58 | NUR ---
RN NOTES SCRAPPER AT BEDSIDE AND SPOKE W/ DR. HASSAN REGARDING NEED FOR THORACENTESIS.
[2021-11-19] MEDS: LORAZEPAM 0.5 MG TABLET PO PRN ×2 (10:04→20:24)
--- NOTE | 2021-11-19 13:00 | NUR ---
RN NOTES PATIENT ACCOMPANIED OUTSIDE TO SMOKE CIGARETTE.
[2021-11-19 16:00] VITALS: BP 116/83
--- NOTE | 2021-11-19 18:36 | NUR ---
RN NOTES PATIENT CURRENTLY IN CHAIR AT BEDSIDE READING A BOOK; REQUESTED FOR COFFEE, AND PROVIDED TO PATIENT. NOT IN ACUTE DISTRESS AT THIS TIME. ASSISTED W/ ADLS APPLICABLE. DUE MEDS GIVEN TODAY. SAFETY MEASURES MAINTAINED. WILL ENDORSE TO ATOMIC PHYSICS PROFESSOR RN FOR PUMA.
--- NOTE | 2021-11-19 19:45 | NUR ---
MS RN OPENING NOTES: RECEIVED PATIENT AWAKE IN BED, IN LOW POSITION CALL LIGHTS WITHIN REACH, NO COMPLAIN OF PAIN AND DISCOMFORT AT THIS TIME, PATIENT IS A/0X3 AMBULATORY NO IV LINE PATIENT KEPT REFUSING,ON ROOM AIR SATURATING WELL, PATIENT KEPT CLEAN AND DRY, ALL NEEDS MET WILL CONTINUE TO MONITOR.
[2021-11-19 20:00] VITALS: BP 123/83
[2021-11-19] MEDS ORDERED: TRAZODONE 50 MG TABLET PO SCH (22:00)
[2021-11-20 00:09] VITALS: BP 123/83
--- NOTE | 2021-11-20 07:24 | NUR ---
MS RN CLOSING NOTES; PATIENT AWAKE IN BED, BED IN LOW POSITION, CALL LIGHTS WITHIN REACH, NO COMPLAIN OF PAIN AND DISCOMFORT AT THIS TIME, A/OX3 ABLE TO MAKE NEEDS KNOWN, PATIENT IS AMBULATORY WITH CANE, ON ROOM AIR SATURATING WELL, NO RESP DISTRESS WAS OBSERVED, PATIENT HAS NO IV LINE OFFERED BUT KEPT ON REFUSING, WAS AWARE, PATINET KEPT CLEAN AND DRY, ALL NEEDS MET, ENDORESE TO INCOMING SHIFT.
[2021-11-20] MEDS: PANTOPRAZOLE 40 MG TABLET.DR PO SCH (07:30)
--- NOTE | 2021-11-20 07:36 | NUR ---
RN OPENING NOTE PT AWAKE AND SITTING IN CHAIR. ON RA WITH NO SOB OR RESPIRATORY DISTRESS. A/O X3 AND QATARI SPEAKING. NO CLEANING MATRON. SELF AMBULATORY WITH BATHROOM PRIVILEGES. SKIN ISSUES PRESENT. NO IV PRESENT, MD AWARE. LABS AND ORDERS REVIEWED. SAFETY MEASURES IN PLACE. SIDE RAILS RAISED. BED LOWERED. CALL LIGHT WITHIN REACH. WILL CONTINUE TO MONITOR.
[2021-11-20 08:00] VITALS: BP 114/51
[2021-11-20] MEDS: NICOTINE PATCH (7MG) 7 MG PATCH.TD24 TD SCH (09:00)
[2021-11-20] MEDS: GABAPENTIN 400 MG CAPSULE PO SCH ×3 (10:06→16:20)
[2021-11-20] MEDS: HYDROCODONE/APAP 5/325MG TABLET PO PRN (12:00)
--- NOTE | 2021-11-20 13:01 | NUR ---
RN NOTE PT FRANTICALLY SEARCHING ROOM SEARCHING FOR BELONGINGS. BELONGINGS IN SAFE AND EDUCATED PT. NO ONE CURRENTLY AVAILABLE TO OPEN SAFE. PT IN ANXIOUS STATE. WILL CONTINUE TO MONITOR.
--- NOTE | 2021-11-20 15:58 | NUR ---
RN NOTE PT ATTEMPTING TO LEAVE HOSPITAL AMA. TALKED WITH PT AND EMPHASIZED IMPORTANCE OF STAYING IN HOSPITAL. PT NON COMPLAINT AND IGNORING REQUESTS TO STAY IN HOSPITAL. PT BALLED FISTS AND THREATENED RN THAT "YOU CAN'T TELL ME WHAT TO DO.' CONTINUED TO SPEAK WITH PT, PT GETTING MORE AGITATED AND ANXIOUS, CONTINUING THREATS TOWARD RN. SECURITY NOTIFIED AND NURSING EXCHANGE ADMINISTRATOR ANNA PRESENT FOR ALTERCATION. SPOKE WITH ANNA ABOUT PT STATUS AND OKAYED FOR PT TO LEAVE. NO IV PRESENT. NOTIFIED CM, CN, AND ABOUT EVENT.
--- NOTE | 2021-11-20 16:30 | NUR ---
RN NOTE NOTIFIED THAT HOSPITAL CANNOT KEEP BED FOR PT. CM CALLED ABOUT NEW [facility] THAT PT IS ACCEPTED IN. CALLED PT ABOUT NEW PLACEMENT. PT LEFT AMA. REFUSED TO SIGN AMA PAPERS. REFUSED SKIN ASSESSMENT. PRESCRIPTION PAPER WITH PT. NO IV LINES PRESENT.
[2021-11-27] MEDS ORDERED: NICO-760 TD (15:09)
[2021-11-27] MEDS ORDERED: PANT40TA49 PO (15:09)
[2021-11-27] MEDS ORDERED: AZIT250T PO (15:09)
[2021-11-27] MEDS ORDERED: ALBU18HF2 IH (15:09)
== END 2021-11-20 16:30 | disposition left against medical advice (07) | DRG 191 ==
LOC: MED 13:27
PROVIDERS: ADMIT Nurse Practitioner Acute Care; ATTEND Nurse Practitioner Acute Care
DX: J44.1 Chronic obstructive pulmonary disease with (acute) exacerbation (principal); J90 Pleural effusion, not elsewhere classified; J98.11 Atelectasis; F41.9 Anxiety disorder, unspecified; F39 Unspecified mood [affective] disorder; E03.9 Hypothyroidism, unspecified; Z73.6 Limitation of activities due to disability; F32.9 Major depressive disorder, single episode, unspecified; F17.210 Nicotine dependence, cigarettes, uncomplicated; Z71.6 Tobacco abuse counseling
CPT/HCPCS: 36415; 76604-TC; 80048-TC; 83735-TC; 84100-TC; 85025-TC; 85610-TC; 87081-TC; G0378

== ENCOUNTER 2021-11-25 22:15 | Inpatient (IN) | payer OTHER ==
[~2021-11-25] VITALS: Ht 177.8 cm; Wt 73.5 kg
[~2021-11-25 22:15] MED LIST changes: -LEVO500T90 PO
--- NOTE | 2021-11-25 23:20 | NUR ---
BIB FOR PSYCH EVAL. PT HAD AN ARGUMENT WITH [facility]. PER PT MAY HAVE INGESTED SOME UNKNOWN AMOUNT OF HOME MEDS. PATIENT ALERT AND ORIENTED X2. BROUGHT IN ON WHEELCHAIR.
[2021-11-25 23:42] LABS: BASOPHILS % (AUTO) 0.5 % (0.0-2.0); EOSINOPHILS % (AUTO) 0.4 % (0.0-6.0); HEMATOCRIT 47 % (39-51); HEMOGLOBIN 15.3 g/dL (13.5-17.5); LYMPHOCYTES # (AUTO) 0.6 K/uL (0.8-4.8); MEAN CORPUSCULAR HGB CONC 33 g/dl (31.0-36.0); MEAN CORPUSCULAR VOLUME 86 fL (80-96); MONOCYTES # (AUTO) 0.5 K/uL (0.1-1.30); MONOCYTES % (AUTO) 7.3 % (2.0-12.0); NEUTROPHILS % (AUTO) 83.8 % (43.0-81.0); PLATELET COUNT (AUTO) 189 K/uL (150-450); RED BLOOD CELL COUNT(AUTO) 5.46 MIL/uL (4.5-6.0); WHITE BLOOD COUNT (AUTO) 7.2 K/uL (4.3-11.0)
[2021-11-25 23:49] LABS: CALCIUM, SERUM 9.3 mg/dL (8.5-10.1); CARBON DIOXIDE 25 mmol/L (21-32); CHLORIDE 100 mmol/L (98-107); CREATININE 1.3 mg/dL (0.6-1.3); GLUCOSE 98 mg/dL (74-106); POTASSIUM 3.6 mmol/L (3.5-5.1); SODIUM SERUM 140 mmol/L (136-145); UREA NITROGEN, BLOOD 21 mg/dL (7-18)
[2021-11-25 23:59] LABS: ALANINE AMINOTRANSFERASE 23 U/L (12-78); ALBUMIN 4.2 g/dL (3.4-5.0); ALCOHOL, BLOOD < 3 mg/dL (0-0); ALKALINE PHOSPHATASE 94 U/L (46-116); ASPARTATE AMINOTRANSFERASE 24 U/L (15-37); BILIRUBIN,DIRECT 0.4 mg/dL (0.0-0.2); BILIRUBIN,TOTAL 1.5 mg/dL (0.2-1.0); TOTAL PROTEIN, SERUM 8.1 g/dL (6.4-8.2)
[2021-11-26 00:02] LABS: ACETAMINOPHEN 0 ug/ml (10-30)
[2021-11-26] MEDS ORDERED: IV NS 0.9% 1,000 ML BAG IV ONE ×2 (00:30)
[2021-11-26] MEDS ORDERED: LIDOCAINE 2% JEL UROJET 10 ML MM ONE (01:58)
--- NOTE | 2021-11-26 02:09 | NUR ---
URINE COLLECTED AND SENT TO LAB.
[2021-11-26 02:12] LABS: BILIRUBIN,URINE NEGATIVE (NEGATIVE); COLOR,URINE YELLOW (YELLOW); LEUKOCYTE ESTERASE ,URINE NEGATIVE (NEGATIVE); NITRITE, URINE NEGATIVE (NEGATIVE); PH,URINE 5.5 (5.0-8.0); PROTEIN,URINE NEGATIVE (NEGATIVE); UGLUCOSE NEGATIVE (NEGATIVE); UROBILINOGEN,URINE 0.2 EU/dL (0.2)
--- NOTE | 2021-11-26 06:04 | NUR ---
PATIENT RESTING COMFORTABLY NO COMPLAINTS AT THIS TIME.
[2021-11-26] MEDS ORDERED: ACETAMINOPHEN 325 MG TABLET PO PRN (07:00)
[2021-11-26] MEDS ORDERED: ONDANSETRON HCL/PF 4 MG/2 ML VIAL IVP PRN (07:00)
[2021-11-26] MEDS ORDERED: MAG HYDROX/AL HYDROX/SIMETH 30 ML UDC PO PRN (07:00)
[2021-11-26] MEDS ORDERED: MAGNESIUM HYDROXIDE 30 ML UDC PO PRN (07:00)
[2021-11-26] MEDS ORDERED: Z GUARD REMEDY 4 OZ OINT TP PRN (07:00)
[2021-11-26] MEDS ORDERED: AMOX-430 PO (07:11)
[2021-11-26] MEDS ORDERED: PANTOPRAZOLE 40 MG TABLET.DR PO ONE (07:47)
[2021-11-26] MEDS: PANTOPRAZOLE 40 MG TABLET.DR PO SCH (07:50)
[2021-11-26] MEDS ORDERED: AZITHROMYCIN 500 MG in IV D5W 250 ML IV SCH (08:00)
[2021-11-26] MEDS: CEFTRIAXONE 1 G in IV D5W 50 ML IV SCH (08:00)
--- NOTE | 2021-11-26 10:55 | NUR ---
SW spoke with pt. He denies SI/HI. Per pt., he was never suicidal. He stated he came in for pneumonia.
--- NOTE | 2021-11-26 11:32 | NUR ---
Once pt. is ready for discharged, pt. is able to return to his placement. Pt. is no longer suicidal, so he does not meet criteria for psych placement.
[2021-11-26] MEDS ORDERED: POTA20TA83 PO (11:34)
--- NOTE | 2021-11-26 11:44 | NUR ---
RESPIRATORY THERAPY DIRECTOR AT BEDSIDE FOR BLOOD DRAW
--- NOTE | 2021-11-26 12:10 | NUR ---
PCR SWAB DONE AND SENT TO LAB
--- NOTE | 2021-11-26 16:29 | NUR ---
SEEN BY DR FORD
[2021-11-26] MEDS ORDERED: ALBUTEROL SULFATE 8 GM HFA.AER.AD IH PRN (18:00)
--- NOTE | 2021-11-26 18:40 | NUR ---
US AT BEDSIDE
--- NOTE | 2021-11-26 19:28 | NUR ---
ASSISTED WITH URINAL, NEEDS MET
[2021-11-26] MEDS ORDERED: LORAZEPAM 0.5 MG TABLET ONE (20:57)
[2021-11-26] MEDS: LORAZEPAM 0.5 MG TABLET PO PRN (20:58)
[2021-11-26] MEDS ORDERED: TRAZODONE 50 MG TABLET ONE (21:44)
--- NOTE | 2021-11-26 22:00 | NUR ---
PT SLEEPING, ATTACHED TO MONITOR AND POX
[2021-11-26] MEDS ORDERED: ZOLPIDEM TARTRATE 5 MG TABLET ONE (22:03)
--- NOTE | 2021-11-26 22:03 | NUR ---
CHRISTINA NOT AVAILABLE ON ED FLOOR. PULLED FROM UPSTAIRS
[2021-11-26] MEDS: TRAZODONE 50 MG TABLET PO SCH (22:15)
--- NOTE | 2021-11-27 01:15 | NUR ---
PT USED URINAL, NEEDS MET
[2021-11-27] MEDS: ZOLPIDEM TARTRATE 5 MG TABLET PO PRN (02:01)
[2021-11-27 04:36] LABS: BASOPHILS % (AUTO) 0.5 % (0.0-2.0); EOSINOPHILS % (AUTO) 1.1 % (0.0-6.0); HEMATOCRIT 40 % (39-51); HEMOGLOBIN 12.8 g/dL (13.5-17.5); LYMPHOCYTES # (AUTO) 0.7 K/uL (0.8-4.8); LYMPHOCYTES % (AUTO) 13.6 % (20.0-44.0); MEAN CORPUSCULAR HGB CONC 32 g/dl (31.0-36.0); MEAN CORPUSCULAR VOLUME 86 fL (80-96); MONOCYTES # (AUTO) 0.6 K/uL (0.1-1.30); MONOCYTES % (AUTO) 11.4 % (2.0-12.0); NEUTROPHILS % (AUTO) 73.4 % (43.0-81.0); PLATELET COUNT (AUTO) 152 K/uL (150-450); RED BLOOD CELL COUNT(AUTO) 4.59 MIL/uL (4.5-6.0); WHITE BLOOD COUNT (AUTO) 5.4 K/uL (4.3-11.0)
[2021-11-27 04:52] LABS: CALCIUM, SERUM 8.4 mg/dL (8.5-10.1); CARBON DIOXIDE 28 mmol/L (21-32); CHLORIDE 105 mmol/L (98-107); GLUCOSE 89 mg/dL (74-106); MAGNESIUM 2.1 mg/dL (1.8-2.4); PHOSPHORUS 3.7 mg/dL (2.5-4.9); POTASSIUM 3.9 mmol/L (3.5-5.1); SODIUM SERUM 139 mmol/L (136-145); UREA NITROGEN, BLOOD 21 mg/dL (7-18)
[2021-11-27] MEDS ORDERED: LORAZEPAM 0.5 MG TABLET ONE (05:41)
[2021-11-27] MEDS: LORAZEPAM 0.5 MG TABLET PO PRN (05:45)
[2021-11-27] MEDS ORDERED: FUROSEMIDE 20 MG TABLET ONE (07:49)
[2021-11-27] MEDS ORDERED: AZITHROMYCIN 250 MG TABLET ONE (07:49)
[2021-11-27] MEDS ORDERED: LEVOTHYROXINE SODIUM 50 MCG TABLET ONE (07:49)
[2021-11-27] MEDS ORDERED: LEVOTHYROXINE SODIUM 25 MCG TABLET ONE (07:50)
[2021-11-27] MEDS ORDERED: POTASSIUM CHLORIDE 20 MEQ TAB.PRT.SR PO ONE (07:50)
[2021-11-27] MEDS ORDERED: PANTOPRAZOLE 40 MG TABLET.DR PO ONE (07:50)
[2021-11-27] MEDS: FUROSEMIDE 20 MG TABLET PO SCH (08:00)
[2021-11-27] MEDS: NICOTINE PATCH (7MG) 7 MG PATCH.TD24 TD SCH (08:00)
[2021-11-27] MEDS: PANTOPRAZOLE 40 MG TABLET.DR PO SCH (08:00)
[2021-11-27] MEDS: LEVOTHYROXINE SODIUM 75 MCG TABLET PO SCH (08:00)
[2021-11-27] MEDS: POTASSIUM CHLORIDE 20 MEQ TAB.PRT.SR PO SCH (08:00)
[2021-11-27] MEDS: AZITHROMYCIN 250 MG TABLET PO SCH (08:00)
[2021-11-27] MEDS: CEFTRIAXONE 1 G in IV D5W 50 ML IV SCH (08:47)
--- NOTE | 2021-11-27 10:50 | NUR ---
SEEN BY DR FORD
--- NOTE | 2021-11-27 11:15 | NUR ---
SS Note: SW met with pt. bedside to assist with DC planning. SW is familiar with this pt. from previous admissions. Pt. has Hx. of Anxiety, Depression, Psychosis per EMR and recently treated for pneumonia. Per EMR, pt.'s brought pt. in to [facility] after she was called by facility where pt. resides due to pt. exhibiting aggressive behavior. Upon SS consult, the pt. is alert & oriented x 4 and appears well-groomed. Pt. appears to have injury, bruising on left hand and states he got into verbal argument with the facility landlord regarding pt. wanting to leave facility. Per pt. it escalated and he injured his hand. Pt. could not specify details of how he got he got the bruising. SW offered for PD to be called so he may file a police report and pt. refused. The pt. denies any current SI/HI and denies any hallucinations. Pt. remained calm & cooperative throughout interview. Pt. denies drug or alcohol use. Pt. stated he is currently on psych meds and pt. has been given his medications during his admission at [facility]. Pt. is ambulatory and hard of hearing. Pt. gave verbal consent for SW to call his . SW called the pt.'s , Cathy Higgins [phone] and left voicemail to collect collateral information. Plan: SW asked pt. if he is willing to return back to previous facility and pt. stated that he is agreeable. SW placed senior resources in pt.'s chart to be given to upon discharge. Pt. could not provide facility name or address. SW will attempt to reach pt.'s for details. ABUSE PREVENTION: ELDER ABUSE HOTLINE (31/05) ADULT PROTECTIVE SERVICES HOTLINE LONG-TERM CARE [facility] Region AREA ON AGING (HOTLINE) ADULT DAY HEALTH CARE CARE CENTERS: Private pay or Medi-vale funded adult day care [facility] , [facility] , [facility] , [facility] Day Health Care , [facility] , [facility] Adult Daycare Center , [facility] Generation [facility] , [facility] Cortés [facility] , [place] ALZHEIMERS DISEASE/DEMENTIA: Alzheimers Association Helpline [place] [facility] Chapter www.alz.org/[facility] Department of Aging www.lacity.org Family Caregiver [place] www.caregiver.org [place] Caregiver Resources Center/Family Support www.l[facility] peak hospital[facility].org CANCER RESOURCES: [place] Cancer Society www.cancer.org Cancer Support Community www.CancerSupportVvsb.org: CancerCare www.cancercare.org [facility] Cancer Support Hurricane www.niobrara health and life center - lusk.org [facility] HEALTH ASSOCIATIONS: AARP www.aarp.org ALS Association (ask for Kristy) www.als.org [place] Diabetes Association www.diabetes.org [place] Heart Association www.heart.org [place] Lung Association www.lungusa.org [place] Parkinson Disease Association www.apdaparkinson.org Kuwaiti Vidalia , www.redcross.org Arthritis Foundation www.arthritis.org Crohns & Colitis Foundation of [place]i www.ccfa.org/chapters/bhupinder National Multiple Sclerosis Society www.nationalmssociety.org Myasthenia Gravis Foundation www.myasthenia-ca.org National Stroke Association www.stroke.org CONSERVATORSHIP & GUARDIANSHIP: AARP Graciela Reyes Legal Services Center for Health Care Rights Eldercare Information and Referral Shoe Coverer Foundation [facility]: [facility] Bar Referral Service [facility] Legal Services Office of the Public Guardian [place] EYESIGHT DISORDER RESOURCES: [place] Macular Degeneration Foundation [facility] www.[facility].org GRIEF AND BEREAVEMENT RESOURCES: [facility] Place , [facility] THE [facility] , [facility] , [place] HEARING DISORDER RESOURCES: [place] Telephone Access Program Deaf and Disabled Telecommunications Program www.ddtp.cpuc.ca.gov HearRx Hearing Centers ([place]) Better Hearing Systems , [place] GLAD ([facility] Agency on Deafness) V/ TTY; Pool Finisher , [facility] Hearing [facility] -low income hearing aid assistance www.Radialogicacleveland clinic lutheran hospitalringfoundation.org [place] [facility] , Nabil HELP AT HOME CAREGIVER SUPPORT: In Home Support Services (Must have Medi-Vlae to be eligible) *Ask for a list of agencies that provide services to assist with care in the home. Local Senior Centers also have listings of care providers. HOME SAFETY MODIFICATIONS AND EQUIPMENT: Senior centers have additional referrals. [place] Housing and Community Investment Dept. Handyworker Program (low income) or Visit http://hcidla.lacity.org/oxb-obhxda-bj for more information National Seating and Mobility and/or ; Forever Active www.foreveractivemed.Photomedex Stay Home Safe www.StayhomTapSurge.Photomedex LIFE ALERT RESPONSE SYSTEM: [place] [employer] Services 064-635-0816 www. Tourlandish Life Alert 562-809-2774 wwwFair value Life Station 476-178-7318 www.Silentiumation.Photomedex Safe Return 923-386-6322 www.alz.or/safereturn Cell Phones for Seniors www.Bicycle Therapeutics MEALS AND FOOD PROGRAMS: [place] Meals on Wheels [phone] [place] Meals on Wheels [phone] [facility] [phone] [place] to the Homebound [phone] Drain to the Homebound [phone] [facility] to the Homebound 884-123-8066 [facility] to the Homebound [phone] [facility] [phone] [facility] [phone] ONE Generation [phone] [facility] [phone] [facility] [phone] Meals on Wheels [phone] For all ages: $6.85/ meal w side. Delivered M-F from 10 am-1pm. Application and payment is done over the phone. Frozen meals available for weekends. Emergency Food [facility] ([facility]) [phone] [facility] Safety Council Director [phone] [facility] [phone] [facility]- Brown bag lunches [phone] [facility] [address] [phone] MEAL/GROCERY DELIVERY PROGRAMS: [facility] [phone]- [facility] [phone] Magic Kitchen [phone] Moms Meals [phone] (ask Trevino for Discount Select grocery stores may provide delivery. MEDICAL INSURANCE SUPPORT SERVICES: Center for Health Care Rights [phone] Health Insurance Counseling/Advocacy Programs (HICAP)-Must have Medicare. Offers counseling for Medi-Vale eligibility [phone] Department of Public Safety Council Director [phone] www.[facility].ca.gov Medicare 494-412-1960 www.socialsecurity.org Social Security [phone] SENIOR ACTIVITY PROGRAMS: *Contact a local senior center, adult school, recreation facility or community college for education, fitness, recreation, and social programs. Aquatic Therapy and Adapted Exercise programs through [facility] [phone] En[facility] at [facility] [phone] www.[facility]/encore U- Senior Friends [phone] [place] Senior Programs [phone] www.oasisnet.org Suddenly 65 www..com SENIOR CENTERS: [facility] [phone] [facility] [phone] [facility] [phone] [facility] [phone] [facility] [phone] [facility] [phone] [facility] [phone] [facility] [phone] One Generation, [facility] [phone] [facility] [phone] [facility] [phone] [facility] [phone] [facility] [place] [phone] TRANSPORTATION: Local [facility] Centers may have applications for transportation programs and additional resources. ACCESS Services [phone] Transportation for seniors and disabled persons 7 days a week requiring 254 hr. advance reservation. Must apply and register for program mickey eligible. CITY RIDE [phone] or [phone] Transportation for seniors and persons with ADA card/metro disabled card in the [facility]. M-F only. Must register for services. ONE GENERATION [phone] Serves 65 years + in conjunction with Timetrice program. Must be registered with both programs. A to B Transport [phone] Provides wheelchair/gurney van service. Adult Medical Transport [phone] Accepts [facility] with prior authorization. Care Van [phone] Provides wheelchair Transport. [facility] Wide Transportation [phone] Provides gurney service Gentle Care [phone] Gurney Transport. [facility] Transportation [phone] wheelchair & gurney transport [facility] Transportation [phone] wheelchair & gurney transport [place] Non-Emergency Transport [phone] wheelchair & gurney transport Independent Living Center [phone] Short Term Transportation primarily for adults with disabilities on social security income. Nominal fee may apply and a reservation is required. Mowdo Cab [phone] or [phone] [facility] [phone] [place] [address] Services -[phone] For additional programs & services VETERANS RESOURCES: Submissions for Aid and Attendance should be done directly to Federal VA office locatd at : [address] [facility] [phone] National Caregiver Support Line [phone] [place] [facility] Field Office [phone] [place] Department of Affairs [phone] Pension Information [phone]
--- NOTE | 2021-11-27 12:02 | NUR ---
PER NOLBERTO, ART WILL SEE THE PATIENT FOR EVAL
--- NOTE | 2021-11-27 12:37 | NUR ---
REPORT GIVEN TO LIONEL COPELAND FOR PUMA
--- NOTE | 2021-11-27 13:14 | NUR ---
PT TRANSFERRED TO [facility] VIA ACLS PROTOCOL. ALL BELONGINGS WITH PT.
--- NOTE | 2021-11-27 13:30 | NUR ---
BEAD MACHINE OPERATOR NOTES RECEIVED PATIENT IN BED. A/O X4. ABLE TO VERBALIZE NEEDS. PATIENT HAS NO COMPLAINTS THIS TIME. NO SIGNS OF DISTRESS, NO SOB NOTED, AND NO CHEST DISCOMFORT. PATIENT'S IV IS NOTED RIGHT ANTECUBITAL #20 GAUGE SALINE LOCK. FLUSHES WELL UPON ARRIVAL. ALL NEEDS ATTENDED TO. PATIENT ADMITTED TO UNIT. SKIN IS INTACT. PATIENT ON ROOM AIR SATING AT 96%. ISOLATION PRECAUTION OBSERVED. ALL SAFETY MEASURES IN PLACE. BED IN LOWEST POSITION AND LOCKED. WILL CONTINUE TO MONITOR.
[2021-11-27] MEDS ORDERED: AZIT250T PO (15:09)
[2021-11-27] MEDS ORDERED: NICO-760 TD (15:09)
[2021-11-27] MEDS ORDERED: ALBU18HF2 IH (15:09)
[2021-11-27] MEDS ORDERED: PANT40TA49 PO (15:09)
[2021-11-27 15:36] VITALS: BP 107/70
[2021-11-27 20:00] VITALS: BP 95/67
--- NOTE | 2021-11-27 20:23 | NUR ---
HELD TRANSFER Covid test PCR result pending. GPS admission held. Patient remains on 5150 at this time. Will cont to provide care.
[2021-11-27] MEDS: TRAZODONE 50 MG TABLET PO SCH (21:13)
--- NOTE | 2021-11-27 23:52 | NUR ---
BUE SKIN TEAR BUE with dry gauze upon initial skin assessment. No skin photos in the chart. BUE wound cleanse with NS and applied adaptic gauze. Wound consult place. Skin photo taken.
[2021-11-28] MEDS: ZOLPIDEM TARTRATE 5 MG TABLET PO PRN (00:17)
--- NOTE | 2021-11-28 00:27 | NUR ---
UNABLE TO SLEEP Patient c/o of difficulty sleeping and request sleeping medication. PRN Ambien given. Will reassess.
[2021-11-28 05:49] VITALS: BP 105/67
--- NOTE | 2021-11-28 05:57 | NUR ---
END OF SHIFT REPORT Patient in bed, A/O x3 Forgetful, easily reoriented. No agitated behavior during the night. 6 hours of sleep with sleeping medication. Diego arms skin tear covered with dry gauze, wound consult placed. Covid PCR test pending result. Patient held dc to GPS unit, awaiting covid PCR test. Will endorse to oncoming RN.
[2021-11-28 06:54] LABS: BASOPHILS % (AUTO) 0.5 % (0.0-2.0); EOSINOPHILS % (AUTO) 1.3 % (0.0-6.0); HEMATOCRIT 38 % (39-51); HEMOGLOBIN 12.4 g/dL (13.5-17.5); LYMPHOCYTES # (AUTO) 0.9 K/uL (0.8-4.8); MEAN CORPUSCULAR HGB CONC 33 g/dl (31.0-36.0); MEAN CORPUSCULAR VOLUME 85 fL (80-96); MONOCYTES # (AUTO) 0.5 K/uL (0.1-1.30); MONOCYTES % (AUTO) 9.5 % (2.0-12.0); NEUTROPHILS # (AUTO) 4.2 K/uL (1.8-8.9); NEUTROPHILS % (AUTO) 73.7 % (43.0-81.0); PLATELET COUNT (AUTO) 163 K/uL (150-450); RED BLOOD CELL COUNT(AUTO) 4.43 MIL/uL (4.5-6.0); WHITE BLOOD COUNT (AUTO) 5.7 K/uL (4.3-11.0)
[2021-11-28 07:25] LABS: CALCIUM, SERUM 8.1 mg/dL (8.5-10.1); MAGNESIUM 2.1 mg/dL (1.8-2.4); PHOSPHORUS 3.1 mg/dL (2.5-4.9); POTASSIUM 3.8 mmol/L (3.5-5.1)
--- NOTE | 2021-11-28 07:30 | NUR ---
TOP WADDY OPENING NOTES RECEIVED PATIENT IN BED. A/O X4. ABLE TO VERBALIZE NEEDS. PATIENT HAS NO COMPLAINTS OF PAIN OR DISCOMFORT AT THIS TIME. NO SIGNS OF DISTRESS, NO SOB NOTE. WITH IV ACCESS AT RIGHT ANTECUBITAL #20 GAUGE SALINE LOCK. ISOLATION PRECAUTION OBSERVED. ALL SAFETY MEASURES IN PLACE. BED IN LOWEST POSITION AND LOCKED. WILL CONTINUE TO MONITOR.
[2021-11-28] MEDS: POTASSIUM CHLORIDE 20 MEQ TAB.PRT.SR PO SCH (08:52)
[2021-11-28] MEDS: LEVOTHYROXINE SODIUM 75 MCG TABLET PO SCH (08:52)
[2021-11-28] MEDS: NICOTINE PATCH (7MG) 7 MG PATCH.TD24 TD SCH (08:52)
[2021-11-28] MEDS: PANTOPRAZOLE 40 MG TABLET.DR PO SCH (08:52)
[2021-11-28] MEDS: CEFTRIAXONE 1 G in IV D5W 50 ML IV SCH (08:52)
[2021-11-28] MEDS: AZITHROMYCIN 250 MG TABLET PO SCH (08:52)
[2021-11-28] MEDS: FUROSEMIDE 20 MG TABLET PO SCH (08:53)
[2021-11-28] MEDS: LORAZEPAM 0.5 MG TABLET PO PRN (08:53)
--- NOTE | 2021-11-28 09:12 | NUR ---
WOUND CARE CONSULT: REVIEWED CHART,NURSING DOCUMENTATION AND PHOTOS WHICH INDICATE UPPER EXTREMITY SKIN TEARS, PRESENT ON ADMISSION. RECOMMENDATIONS MADE FOR WOUND CARE AND SKIN PROTECTION. DISCUSSED WITH NURSING STAFF. MD IN AGREEMENT WITH PLAN OF CARE. CURRENT ALMA SCORE IS 22.
--- NOTE | 2021-11-28 09:42 | NUR ---
per [place] [facility] covid negative.
[2021-11-28] MEDS ORDERED: MAGN400O6 PO (15:11)
[2021-11-28] MEDS ORDERED: ALLA266C2 TP (15:11)
[2021-11-28] MEDS ORDERED: ZOLP5TAB2 PO (15:11)
[2021-11-28] MEDS ORDERED: MAG-55 PO (15:11)
[2021-11-28] MEDS ORDERED: ACET325T53 PO (15:11)
[2021-11-28] MEDS ORDERED: TRAZODONE 50 MG TABLET PO SCH (22:00)
== END 2021-11-28 11:17 | DRG 189 ==
LOC: ER 22:18 → TRANSITION 11-26 04:58 → TELE1 11-27 12:37 → MEDSG1 11-28 07:31
PROVIDERS: ADMIT Registered Nurse; ATTEND Registered Nurse
DX: J96.01 Acute respiratory failure with hypoxia (principal); J15.9 Unspecified bacterial pneumonia; G92.8 Other toxic encephalopathy; N17.9 Acute kidney failure, unspecified; J44.0 Chronic obstructive pulmonary disease with (acute) lower respiratory infection; F23 Brief psychotic disorder; Z87.01 Personal history of pneumonia (recurrent); Z20.822 Contact with and (suspected) exposure to COVID-19; Z91.09 Other allergy status, other than to drugs and biological substances; Z79.899 Other long term (current) drug therapy; R45.1 Restlessness and agitation; Z72.0 Tobacco use; E03.9 Hypothyroidism, unspecified; F32.A Depression, unspecified; I10 Essential (primary) hypertension; Y95 Nosocomial condition; F41.9 Anxiety disorder, unspecified; R79.89 Other specified abnormal findings of blood chemistry
CPT/HCPCS: 36415; 71045-TC; 80048-TC; 80076-TC; 83735-TC; 84100-TC; 85025-TC; 87040-TC; 87081-TC; 93307-TC; C9803; G0378; G0480; J0456; J0696; J2405; J3490; J7030; J7050; J7060; U0003

== ENCOUNTER 2021-11-28 11:09 | Inpatient (IN) | payer OTHER ==
[~2021-11-28] VITALS: Ht 175.3 cm; Wt 68.9 kg
[~2021-11-28 11:09] MED LIST changes: +ALBU18HF2 IH; +AZIT250T PO; +NICO-760 TD; +PANT40TA49 PO; +POTA20TA83 PO
--- NOTE | 2021-11-28 11:51 | NUR ---
TC Initial Discharge Plan: Pt was currently at a Board and Care but unable to state which one. TC will work with the family and MD to coordinate appropriate discharge.
--- NOTE | 2021-11-28 11:51 | NUR ---
UR Note: [employer] [phone] s/w Vandana Wild obtained Auth# [id number], same as pending reference#. No gearcase assembler. is assigned at this time. Once assigned a Head Of Partner Development. will call on Wednesday with request for clinical. Per araceli Rosales.
--- NOTE | 2021-11-28 12:05 | NUR ---
TC Family Contact: TC spoke with patient's Cathy ([phone]) and notified of his admission. Patient's Cathy stated that pt is not welcomed back to his board and care. Cathy reported that pt will be needing a SNF and that she has been in contact with pt's Jose rehabilitation caseworker to coordinate this and will have this remote mortgage underwriter send clinicals.
--- NOTE | 2021-11-28 12:45 | NUR ---
TC Family Contact: SW spoke with patient's Cathy ([phone]) left a voicemail to this show card writer to contact Yasemin wrapper caser from [facility] who stated she will help with placement ([phone]).
--- NOTE | 2021-11-28 12:45 | NUR ---
[employer]: Per patient's 's request Cathy ([phone]) contacted Yasemin family independence case manager ([phone]) and left a detailed voicemail that pt will be needing a SNF to help and coordinate.
--- NOTE | 2021-11-28 13:15 | NUR ---
GPS/RN PT RECEIVED DIRECT ADMIT ON 515 ON GD AND DTO FROM MS. AMBULATORY NO ACUTE DISTRESS NOTED. ON FACE TO FACE ASSESSMENT NO SI OR HI REPORTED. ADMITTING ORDERS FROM [facility] RECEIVED AND CARRIED OUT. PT REFUSED FULL SKIN ASSESSMENT AND TO SIGN CONSENT FORMS. PROPERTY CHECKED FOR CONTRABAND.
[2021-11-28 14:00] VITALS: BP 93/63
[2021-11-28] MEDS ORDERED: MAG HYDROX/AL HYDROX/SIMETH 30 ML UDC PO PRN (14:00)
[2021-11-28] MEDS ORDERED: ACETAMINOPHEN 325 MG TABLET PO PRN (14:00)
[2021-11-28] MEDS ORDERED: BLOOD SUGAR DIAGNOSTIC 1 EACH STRIP IN ONE (14:00)
[2021-11-28] MEDS ORDERED: ZOLPIDEM TARTRATE 5 MG TABLET PO PRN (14:00)
[2021-11-28] MEDS ORDERED: MAGNESIUM HYDROXIDE 30 ML UDC PO PRN (14:00)
--- NOTE | 2021-11-28 14:00 | NUR ---
GPS/RN PT REFUSED SKIN ASSESSMENT, REFUSED TO SIGN CONSENT FORMS ON ADMISSION
--- NOTE | 2021-11-28 15:00 | NUR ---
GPS/RN PT REFUSE MRSA SWAB
[2021-11-28] MEDS ORDERED: ACET325T53 PO (15:11)
[2021-11-28] MEDS ORDERED: MAGN400O6 PO (15:11)
[2021-11-28] MEDS ORDERED: ALLA266C2 TP (15:11)
[2021-11-28] MEDS ORDERED: ZOLP5TAB2 PO (15:11)
[2021-11-28] MEDS ORDERED: MAG-55 PO (15:11)
--- NOTE | 2021-11-28 15:39 | NUR ---
GPS/RN PT HAD PFIZER 2 DOSES(2020) AND BOOSTER SEPTEMBER 08 2021 PER
[2021-11-28 16:00] VITALS: BP 94/96
[2021-11-28] MEDS: LORAZEPAM 0.5 MG TABLET PO PRN (16:24)
--- NOTE | 2021-11-28 16:24 | NUR ---
Pt. is anxious and requesting for Ativan po prn and given.
[2021-11-28 19:50] VITALS: BP 95/50
[2021-11-28] MEDS: TEMAZEPAM 7.5 MG CAPSULE PO PRN (22:03)
--- NOTE | 2021-11-28 22:05 | NUR ---
GPS RN NOTES: PATIENT REQUESTED FOR SLEEP MEDICATION D/T INSOMNIA. RESTORIL 7.5MG/1CAP GIVEN PO PRN ORDERED AT 2203. WILL CONTINUE TO MONITOR.
[2021-11-29] MEDS: LORAZEPAM 0.5 MG TABLET PO PRN ×2 (02:56→19:35)
--- NOTE | 2021-11-29 03:01 | NUR ---
GPS RN NOTES: PATIENT C/O ANXIETY. ATIVAN 0.5MG GIVEN PO PRN AT 0256. WILL CONTINUE TO MONITOR.
[2021-11-29 07:11] LABS: CHOLESTEROL 104 mg/dL (<200); HDL CHOLESTEROL 46 mg/dL (40-60); LDL 52 mg/dL (0-99); TRIGLYCERIDES 29 mg/dL (30-150)
[2021-11-29 08:00] VITALS: BP 107/74
[2021-11-29] MEDS ORDERED: NICOTINE PATCH (7MG) 7 MG PATCH.TD24 TD SCH (09:00)
[2021-11-29 09:29] LABS: ALBUMIN 3.2 g/dL (3.4-5.0); BILIRUBIN,TOTAL 0.8 mg/dL (0.2-1.0); CALCIUM, SERUM 9.6 mg/dL (8.5-10.1); POTASSIUM 4.5 mmol/L (3.5-5.1); TOTAL PROTEIN, SERUM 6.8 g/dL (6.4-8.2)
[2021-11-29] MEDS ORDERED: ALBUTEROL SULFATE INH 18 GM HFA.AER.AD IH PRN (10:00)
[2021-11-29] MEDS ORDERED: ACETAMINOPHEN 325 MG TABLET PO PRN (10:00)
[2021-11-29] MEDS ORDERED: ALBUTEROL FS 2.5 MG/3 ML VIAL.NEB NEB PRN (10:30)
[2021-11-29 16:00] VITALS: BP 121/71
--- NOTE | 2021-11-29 19:30 | NUR ---
GPS RN NOTE, RECEIVED PATIENT AWAKE AND IN BED, NO S/S OR COMPLAINTS OF PAIN AT THIS TIME. PATIENT IS DISPLAYING NO S/S OF APPARENT DISTRESS AT THIS TIME. PATIENT BREATHING IS UNLABORED WITH EQUAL RISE AND FALL OF THE CHEST. PATIENT IS ALERT AND ORIENTED X 2 ON ROOM AIR WITH A SPO2 93%. PATIENT IS COMPLIANT WITH MEDICATIONS, ANXIOUS, POLITE, HYPERVERBAL, EASILY IRRITABLE, AND COOPERATIVE. PATIENT DENIES SUICIDAL AND HOMICIDAL IDEATIONS AT THIS TIME. PATIENT ASSISTED WITH TURNING AND REPOSITIONING Q2HR AND PRN FOR COMFORT AND CIRCULATION. PATIENT HAS NO NEEDS AT THIS TIME. PATIENT EDUCATED ON THE USE OF THE CALL BRANNON. PATIENT BED SIDE RAILS UP X 2 FOR SAFETY. PATIENT BED IS LOCKED, LOW, WITH BED ALARM ON. WILL CONTINUE TO MONITOR THIS PATIENT Q15 MINUTES WITH THE HELP OF STAFF TO MAINTAIN SAFETY.
[2021-11-29 20:00] VITALS: BP 123/80
[2021-11-29] MEDS: TEMAZEPAM 7.5 MG CAPSULE PO PRN (22:48)
--- NOTE | 2021-11-29 22:52 | NUR ---
GPS RN NOTE, PATIENT HAS A COMPLAINT OF NOT BEING ABLE TO SLEEP AND IS REQUESTING RESTORIL AT THIS TIME. PATIENT VITAL SIGNS ARE STABLE. GAVE RESTORIL 7.5MG PO HS PRN ORDERED. WILL REASSESS FOR INSOMNIA AND I WILL CONTINUE TO MONITOR THIS PATIENT WITH THE HELP OF STAFF.
[2021-11-30] MEDS: CARBAMAZEPINE 200 MG TABLET PO SCH ×4 (00:30→16:43)
[2021-11-30] MEDS: TRAZODONE 50 MG TABLET PO SCH ×2 (00:52→22:01)
--- NOTE | 2021-11-30 01:00 | NUR ---
GPS RN NOTE, PATIENT REFUSED TEGRETOL 200MG PO. OFFERED TEGRETOL THREE TIMES AND STILL PATIENT REFUSED STATING, " NO MY PSYCHIATRIST TOLD ME NOT TO TAKE ANY OTHER MEDICATION BESIDE TRAZODONE, ATIVAN, OR RESTORIL ". EDUCATED PATIENT ON THE RISKS AND BENEFITS OF TAKING AND REFUSING TEGRETOL WITH MEDICATION HANDOUT. WILL CONTINUE TO MONITOR THIS PATIENT WITH THE HELP OF STAFF.
[2021-11-30 08:00] VITALS: BP 95/64
[2021-11-30] MEDS: POTASSIUM CHLORIDE 20 MEQ TAB.PRT.SR PO SCH (08:24)
[2021-11-30] MEDS: FUROSEMIDE 20 MG TABLET PO SCH (08:24)
--- NOTE | 2021-11-30 08:27 | NUR ---
GPS/RN PATIENT REFUSED TEGRETOL 200MG PO. OFFERED X 3
[2021-11-30] MEDS: NICOTINE PATCH (7MG) 7 MG PATCH.TD24 TD SCH (09:01)
[2021-11-30] MEDS: PANTOPRAZOLE 40 MG TABLET.DR PO SCH (09:01)
[2021-11-30] MEDS: LEVOTHYROXINE SODIUM 75 MCG TABLET PO SCH (09:01)
[2021-11-30 16:00] VITALS: BP 109/70
--- NOTE | 2021-11-30 16:43 | NUR ---
GPS/RN PT REFUSED TEGRETOL
[2021-11-30 20:56] VITALS: BP 100/70
[2021-12-01] MEDS: TEMAZEPAM 7.5 MG CAPSULE PO PRN ×2 (03:12→22:17)
--- NOTE | 2021-12-01 03:13 | NUR ---
GPS RN NOTE: PT UNABLE TO SLEEP WITH TRAZODONE 50 MG, OFFERED AN ALTERNATIVE SLEEPING MEDICATION RESTORIL, AT FIRST PT REFUSED MEDICATION STATES "I AM ON A STRICT REGIMENT OF TRAZODONE ONLY." HOWEVER, PT TOOK MEDICATION AT 0220 DUE TO C/O HAVING A HARD TIME FALLING BACK ASLEEP. WILL CONTINUE TO MONITOR PT FOR ANY UNUSUAL SIDE EFFECTS FROM MEDICATION GIVEN.
[2021-12-01] MEDS: LEVOTHYROXINE SODIUM 75 MCG TABLET PO SCH (06:56)
[2021-12-01] MEDS: PANTOPRAZOLE 40 MG TABLET.DR PO SCH (06:56)
[2021-12-01 08:00] VITALS: BP 108/71
--- NOTE | 2021-12-01 08:46 | NUR ---
UR Note: Per Bobby, intake stated, Auth# [id number] and case folder will be Elham Goldsteint ([phone]). Approved 5 days with review due on 12/02/21. SW contacted Elham Diamond and left a voicemail to help with placement and that pt will need a SNF. TC contacted Carine master planner at ([phone]) to help with placement. SW waiting for a call back from Elham or Carine, if they are able to help with placement.
--- NOTE | 2021-12-01 09:07 | NUR ---
TC Family Contact: CT spoke with patient's Cathy ([phone]) and encouraged her to disenroll from [employer] and to enroll in medicare. She stated "it is too late, I am unable to do that now". TC stated that she has reached out to showcase trimmer Carine ([phone]) to help with SNF placement. TC reported if Jose is unable to pay for SNF placement then she would have to pay for SNF placement.
--- NOTE | 2021-12-01 09:14 | NUR ---
Probate Officer: TC received a call from patient's probate officer ([phone]) wanting information of the pt. TC contacted Bassem back and left a detailed voicemail of pt's current status.
[2021-12-01] MEDS: FUROSEMIDE 20 MG TABLET PO SCH (09:25)
[2021-12-01] MEDS: NICOTINE PATCH (7MG) 7 MG PATCH.TD24 TD SCH (09:26)
[2021-12-01] MEDS: POTASSIUM CHLORIDE 20 MEQ TAB.PRT.SR PO SCH (09:26)
--- NOTE | 2021-12-01 09:41 | NUR ---
SNF Contact: SW reached out to [facility] ([phone]) who stated that they currently do not have any beds at this time.
[2021-12-01] MEDS: LORAZEPAM 0.5 MG TABLET PO PRN (11:14)
--- NOTE | 2021-12-01 11:27 | NUR ---
SNF Contacts through Aetna: TC received a list of Aetna Insurance from Carine leather case finisher ([phone]). SW faxed/ and spoke with facilities and sent clinicals too that are in network for Aetna: [facility] ([phone]) and spoke with Sujit who stated they do not have a bed and are in lockdown. [facility] ([phone]) and spoke with Farrah who stated they do not accept Aetna Insurance. [facility] ([phone]) spoke with Meme who stated they do not accept Aetna patients. [facility] and stated that they are on lockdown due to covid. [facility] ([phone]) and spoke with Melanie stated they do not have beds available. [facility] ([phone]) and spoke with Soni and stated they would need to review the insurance. SW faxed ([phone]) for review. [facility] ([phone]) and admissions stated that they are not accepting pts at this time. [facility] (F:[phone]) and spoke with Iliana ruth who stated to fax clinicals to review. Claire ruth ([phone]) and stated to send patients clinicals to review if she can place pt. [facility] ([phone]) spoke with Sarahy and faxed pt.s information to [phone]. [facility] ([phone]) spoke with Cyndi and faxed pt.s information to [phone]. [facility] ([phone]) and spoke with vira who stated they are not contracted with Aetna insurance. [facility] ([phone]) and spoke with Kristina who stated there are no beds available but could fax information for another day. TC faxed pt.s information to [phone]. [facility] spoke with Millicent who stated they only take aetna patients with medical group. TC faxed information to [phone]. [facility] [place] ([phone]) spoke with Rosy and faxed information to [phone].
--- NOTE | 2021-12-01 11:40 | NUR ---
SNF Contact: [facility] ([phone]) and spoke with Melanie who stated they cannot accept pt because pt is out of control.
--- NOTE | 2021-12-01 12:11 | NUR ---
SNF Contact: Adele [facility] ([phone]) and spoke with Soni and stated they would need to review the insurance. faxed ([phone]) and stated they do not have any beds. [facility] spoke with Millicent who stated they only take aetna patients with medical group. TC faxed information to [phone] and stated they cannot accept pt due to behavior. [facility] ([phone]) spoke with Rosy and faxed information to [phone] cannot accept pt due to behavior. [facility] ([phone]) and spoke with Iliana ruth who stated they cannot accept pt due to behavior.
--- NOTE | 2021-12-01 12:48 | NUR ---
TC Family Contact: TC spoke with patient's Cathy ([phone]) and explained that no facility is accepting pt due to no bed availability or not accepting pt due to behavior issues. TC explained that she would need to work with Millicent to coordinate a Board and Care. She was agreeable with this. TC notified pt's probate officer Bassem ([phone]) and notified of pt's status.
[2021-12-01] MEDS: ENSURE ENLIVE CHOC 237 ML CAN PO SCH ×2 (14:00→17:44)
--- NOTE | 2021-12-01 14:11 | NUR ---
PATIENT C/O ANXIETY MEDICATED WITH ATIVAN 0.5MG WILL CONTINUE TO MONITOR .
[2021-12-01 16:00] VITALS: BP 100/64
[2021-12-01 20:00] VITALS: BP 129/63
[2021-12-01] MEDS: TRAZODONE 50 MG TABLET PO SCH (21:04)
[2021-12-02] MEDS: LEVOTHYROXINE SODIUM 75 MCG TABLET PO SCH (06:35)
[2021-12-02] MEDS: PANTOPRAZOLE 40 MG TABLET.DR PO SCH (06:35)
[2021-12-02 08:00] VITALS: BP 100/67
[2021-12-02] MEDS: ENSURE ENLIVE CHOC 237 ML CAN PO SCH ×2 (08:48→11:49)
[2021-12-02] MEDS: NICOTINE PATCH (7MG) 7 MG PATCH.TD24 TD SCH (08:52)
[2021-12-02] MEDS: FUROSEMIDE 20 MG TABLET PO SCH (08:52)
[2021-12-02] MEDS: POTASSIUM CHLORIDE 20 MEQ TAB.PRT.SR PO SCH (08:52)
--- NOTE | 2021-12-02 12:22 | NUR ---
TC Note: Patient will be discharged to [facility] [address] [facility], [address]; ([phone]). Savannah ruth ([phone]) arranged transportation at 2PM. Savannah ruth found placement for pt. SW notified pt's CARLOTA Morgan ([phone]) and stated pt is accepted and will be discharged today. Cathy was agreeable with this.
--- NOTE | 2021-12-02 12:23 | NUR ---
Discharge Note: Patient will be discharged to Board and Care called [facility] [address] [facility], [address]; ([phone]). Savannah ruth ([phone]) arranged transportation at 2PM. Patients DPOA ([phone]) is aware and agreeable with discharge. Patient is alert and oriented x3. Patient denies visual/auditory hallucination. Patient denies suicidal or homicidal ideation. Patient will follow up with (Yarn Cleaner) Dr. Flaherty at the facility who will monitor and provide psychotropic medications. Patient presents with euthymic mood and congruent affect.
--- NOTE | 2021-12-02 14:00 | NUR ---
UR Note: Auth# [id number] and caseworker Elham Altamirano ([phone]) left a detailed voicemail of pt's discharge note.
--- NOTE | 2021-12-02 15:56 | NUR ---
Patient has been discharged to Board and Care called [facility] provided transportation at 240PM. Patients DPANGEL ([phone]) is aware and agreeable with discharge. Patient is alert and oriented x3. Patient denies visual/auditory hallucination. Patient denies suicidal or homicidal ideation. Patient will follow up with (Programming Coordinator) Dr. Flaherty at the facility who will monitor and provide psychotropic medications. Pt refused discharge pictures. Exit Care packet given with signed documents, education, instructions and medical and psychiatric prescriptions which will be filled by the Patient's as requested by her. All valuables and belongings returned and signed.
== END 2021-12-02 14:40 | DRG 885 ==
LOC: GPS 11:09
PROVIDERS: ADMIT Psychiatry & Neurology Psychiatry; ATTEND Nurse Practitioner Acute Care
DX: F39 Unspecified mood [affective] disorder (principal); N17.9 Acute kidney failure, unspecified; J96.01 Acute respiratory failure with hypoxia; G92.8 Other toxic encephalopathy; J18.9 Pneumonia, unspecified organism; F23 Brief psychotic disorder; J44.0 Chronic obstructive pulmonary disease with (acute) lower respiratory infection; F32.A Depression, unspecified; E03.9 Hypothyroidism, unspecified; F17.200 Nicotine dependence, unspecified, uncomplicated; F03.90 Unspecified dementia, unspecified severity, without behavioral disturbance, psychotic disturbance, mood disturbance, and anxiety; Y95 Nosocomial condition; Z20.822 Contact with and (suspected) exposure to COVID-19; Z91.14 Patient's other noncompliance with medication regimen; Z87.09 Personal history of other diseases of the respiratory system; F41.9 Anxiety disorder, unspecified; I10 Essential (primary) hypertension
CPT/HCPCS: 36415; 80048-TC; 80053-TC; 80061-TC; 84443-TC

== ENCOUNTER 2022-01-12 20:54 | Emergency (ER) | payer OTHER ==
[~2022-01-12] VITALS: Ht 177.8 cm; Wt 79.4 kg
[~2022-01-12 20:54] MED LIST changes: +ACET325T53 PO; +ALLA266C2 TP; +MAG-55 PO; +MAGN400O6 PO; -TRAZ-257 PO; +ZOLP5TAB2 PO
--- NOTE | 2022-01-12 21:52 | NUR ---
[facility] [phone]
[2022-01-12] MEDS ORDERED: IV NS 0.9% 500 ML BAG IV ONE (22:00)
--- NOTE | 2022-01-12 22:06 | NUR ---
, PJ: [phone]
[2022-01-12] MEDS ORDERED: SERT25TA PO (22:11)
[2022-01-12] MEDS ORDERED: TRAZ-257 PO (22:11)
[2022-01-12] MEDS ORDERED: TEMA15CA PO (22:11)
--- NOTE | 2022-01-12 22:11 | NUR ---
PT TAKEN TO CT
[2022-01-12 22:16] LABS: BASOPHILS % (AUTO) 0.7 % (0.0-2.0); EOSINOPHILS % (AUTO) 0.6 % (0.0-6.0); HEMATOCRIT 41 % (39-51); HEMOGLOBIN 13.3 g/dL (13.5-17.5); LYMPHOCYTES # (AUTO) 0.6 K/uL (0.8-4.8); MEAN CORPUSCULAR HGB CONC 33 g/dl (31.0-36.0); MEAN CORPUSCULAR VOLUME 85 fL (80-96); MONOCYTES # (AUTO) 0.6 K/uL (0.1-1.30); MONOCYTES % (AUTO) 8.2 % (2.0-12.0); NEUTROPHILS # (AUTO) 5.9 K/uL (1.8-8.9); NEUTROPHILS % (AUTO) 81.5 % (43.0-81.0); PLATELET COUNT (AUTO) 173 K/uL (150-450); WHITE BLOOD COUNT (AUTO) 7.2 K/uL (4.3-11.0)
--- NOTE | 2022-01-12 22:34 | NUR ---
PT RETURNED FROM CT
[2022-01-12 22:37] LABS: ALANINE AMINOTRANSFERASE 15 U/L (12-78); ALBUMIN 3.3 g/dL (3.4-5.0); ALKALINE PHOSPHATASE 75 U/L (46-116); ASPARTATE AMINOTRANSFERASE 20 U/L (15-37); BILIRUBIN,DIRECT 0.2 mg/dL (0.0-0.2); BILIRUBIN,TOTAL 0.9 mg/dL (0.2-1.0); CARBON DIOXIDE 30 mmol/L (21-32); CHLORIDE 100 mmol/L (98-107); CREATININE 0.8 mg/dL (0.6-1.3); GLUCOSE 97 mg/dL (74-106); POTASSIUM 3.8 mmol/L (3.5-5.1); SODIUM SERUM 135 mmol/L (136-145); TOTAL PROTEIN, SERUM 6.9 g/dL (6.4-8.2); UREA NITROGEN, BLOOD 14 mg/dL (7-18)
--- NOTE | 2022-01-12 22:41 | NUR ---
COVID SWAB SENT TO LAB
[2022-01-12 22:57] LABS: BILIRUBIN,URINE NEGATIVE (NEGATIVE); COLOR,URINE YELLOW (YELLOW); LEUKOCYTE ESTERASE ,URINE NEGATIVE (NEGATIVE); NITRITE, URINE NEGATIVE (NEGATIVE); PROTEIN,URINE NEGATIVE (NEGATIVE); UGLUCOSE NEGATIVE (NEGATIVE); UROBILINOGEN,URINE 0.2 EU/dL (0.2)
--- NOTE | 2022-01-12 23:19 | NUR ---
[facility] [address] [address] [id number]
--- NOTE | 2022-01-12 23:20 | NUR ---
BACK FROM CT
--- NOTE | 2022-01-12 23:51 | NUR ---
APA ETA 1 HR
--- NOTE | 2022-01-12 23:52 | NUR ---
REPORT GIVEN TO NURSE RICKY
[2022-01-13] VITALS: BP 128/64
--- NOTE | 2022-01-13 01:04 | NUR ---
REPORT GIVEN TO EMS AT BEDSIDE
== END 2022-01-13 01:05 ==
LOC: ER 20:57
DX: M54.2 Cervicalgia (principal); R42 Dizziness and giddiness; M54.9 Dorsalgia, unspecified; I10 Essential (primary) hypertension; J43.9 Emphysema, unspecified; F17.210 Nicotine dependence, cigarettes, uncomplicated; E03.9 Hypothyroidism, unspecified; G47.00 Insomnia, unspecified; F41.9 Anxiety disorder, unspecified; Z91.81 History of falling; G93.40 Encephalopathy, unspecified; Z88.8 Allergy status to other drugs, medicaments and biological substances; Z79.899 Other long term (current) drug therapy; J90 Pleural effusion, not elsewhere classified; M25.78 Osteophyte, vertebrae; Z20.822 Contact with and (suspected) exposure to COVID-19
CPT/HCPCS: 36415; 70450; 71045; 72125; 72131; 72170; 80048; 80076; 81003; 83880; 84484; 85025; 85730; 87426; 93005; 96360; 99285; C9803; J7040; L0172

== ENCOUNTER 2022-03-02 22:58 | Inpatient (IN) | payer OTHER ==
[~2022-03-02] VITALS: Ht 175.3 cm; Wt 69.4 kg
[~2022-03-02 22:58] MED LIST changes: +SERT25TA PO; +TEMA15CA PO; +TRAZ-257 PO; -ZOLP5TAB2 PO
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
--- NOTE | 2022-03-02 23:31 | NUR ---
DR. LAW JIMÉNEZ AT PT'S BEDSIDE
--- NOTE | 2022-03-02 23:34 | NUR ---
OCCUPATIONAL HEALTH PROFESSIONAL AT PT'S BEDSIDE
--- NOTE | 2022-03-02 23:39 | NUR ---
NUCLEAR LICENSING ENGINEER AT PT'S BEDSIDE
[2022-03-02 23:57] LABS: BASOPHILS % (AUTO) 0.5 % (0.0-2.0); EOSINOPHILS % (AUTO) 0.5 % (0.0-6.0); HEMATOCRIT 35 % (39-51); HEMOGLOBIN 11.5 g/dL (13.5-17.5); LYMPHOCYTES # (AUTO) 0.4 K/uL (0.8-4.8); LYMPHOCYTES % (AUTO) 6.3 % (20.0-44.0); MEAN CORPUSCULAR HGB CONC 33 g/dl (31.0-36.0); MEAN CORPUSCULAR VOLUME 83 fL (80-96); MONOCYTES # (AUTO) 0.5 K/uL (0.1-1.30); MONOCYTES % (AUTO) 7.7 % (2.0-12.0); NEUTROPHILS # (AUTO) 5.1 K/uL (1.8-8.9); PLATELET COUNT (AUTO) 182 K/uL (150-450); RED BLOOD CELL COUNT(AUTO) 4.18 MIL/uL (4.5-6.0); WHITE BLOOD COUNT (AUTO) 5.9 K/uL (4.3-11.0)
[2022-03-03 00:14] LABS: CALCIUM, SERUM 8.6 mg/dL (8.5-10.1); CARBON DIOXIDE 34 mmol/L (21-32); CHLORIDE 100 mmol/L (98-107); CREATININE 0.9 mg/dL (0.6-1.3); GLUCOSE 207 mg/dL (74-106); POTASSIUM 3.9 mmol/L (3.5-5.1); SODIUM SERUM 139 mmol/L (136-145); UREA NITROGEN, BLOOD 17 mg/dL (7-18)
[2022-03-03 00:21] LABS: ALANINE AMINOTRANSFERASE 7 U/L (12-78); ALBUMIN 3.4 g/dL (3.4-5.0); ALKALINE PHOSPHATASE 87 U/L (46-116); ASPARTATE AMINOTRANSFERASE 8 U/L (15-37); BILIRUBIN,DIRECT 0.3 mg/dL (0.0-0.2); TOTAL PROTEIN, SERUM 6.6 g/dL (6.4-8.2)
--- NOTE | 2022-03-03 00:36 | NUR ---
COVID SWAB DONE AND SENT TO LAB
[2022-03-03] MEDS ORDERED: INSULIN REGULAR, HUMAN 100 UNIT/ML 3 ML VIAL SQ PRN (02:00)
[2022-03-03] MEDS ORDERED: hydrALAZINE HCL IV 20 MG VIAL IV PRN (02:00)
[2022-03-03] MEDS ORDERED: Z GUARD REMEDY 4 OZ OINT TP PRN (02:00)
[2022-03-03] MEDS ORDERED: LEVOFLOXACIN 750 MG /D5W 150ML PIGGYBACK IV ONE (02:00)
[2022-03-03] MEDS ORDERED: MAG HYDROX/AL HYDROX/SIMETH 30 ML UDC PO PRN ×2 (02:00→02:30)
[2022-03-03] MEDS ORDERED: ONDANSETRON HCL/PF 4 MG/2 ML VIAL IVP PRN (02:00)
[2022-03-03] MEDS ORDERED: DEXTROSE 50%-WATER 50 ML DISP.SYRIN IV PRN (02:00)
[2022-03-03] MEDS ORDERED: ACETAMINOPHEN 325 MG TABLET PO PRN (02:00)
[2022-03-03] MEDS ORDERED: ALBUTEROL FS 2.5 MG/0.5 ML VIAL.NEB NEB PRN (02:00)
--- NOTE | 2022-03-03 02:06 | NUR ---
PER RADIOLOGY, ECHO WITH BE DONE LATER IN THE MORNING
--- NOTE | 2022-03-03 02:11 | NUR ---
report given to samson coombs
--- NOTE | 2022-03-03 02:12 | NUR ---
TRANSFERRING PT TO 304-2 PER ACLS.
[2022-03-03] MEDS ORDERED: Z GUARD REMEDY 2 OZ OINT TP PRN (02:30)
--- NOTE | 2022-03-03 02:40 | NUR ---
PT GOING TO CT
--- NOTE | 2022-03-03 02:52 | NUR ---
pt returned to er bed 6
[2022-03-03 03:00] VITALS: BP 96/66
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
--- NOTE | 2022-03-03 03:15 | NUR ---
ECHO POSTPONED D/T PATIENT HAVING ECHO RECENTLY 11/26/2021 PER .
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
[2022-03-03] MEDS ORDERED: LEVOFLOXACIN 750 MG /D5W 150ML 150 ML IV ONE (04:25)
[2022-03-03] MEDS: FUROSEMIDE 40 MG/4 ML VIAL IV SCH ×3 (04:27→17:53)
[2022-03-03] MEDS: LEVOTHYROXINE SODIUM 75 MCG TABLET PO SCH (07:11)
--- NOTE | 2022-03-03 07:30 | NUR ---
MOLD SHAKER OPENING NOTES RECEIVED PATIENT ON BED AWAKE AND A/O X4. ON O2 AT 2LPM VIA NASAL CANNULA TOLERATING WELL. NO SOB NOTED. NOT IN DISTRESS. WITH NO COMPLAINTS OF PAIN OR DISCOMFORT AT THIS TIME. ON TELE MONITOR CURRENTLY READING SINUS RHYTHM AT 73BPM. WITH IV ACCESS AT RIGHT UPPER ARM G20 SALINE LOCKED, PATENT AND INTACT. SAFETY MEASURES IN PLACED. CALL LIGHT WITHIN REACH. BED ON LOWEST LOCKED POSITION, SIDE RAILS UP X2. WILL CONTINUE TO MONITOR.
[2022-03-03] MEDS: IPRATROPIUM NEB FS 0.5 MG/2.5 ML AMPUL.NEB IH SCH ×3 (07:35→20:03)
[2022-03-03] MEDS: ALBUTEROL FS 2.5 MG/3 ML VIAL.NEB NEB SCH ×3 (07:35→20:03)
[2022-03-03] MEDS: BLOOD SUGAR DIAGNOSTIC 1 EACH STRIP IN SCH ×5 (07:52→21:24)
[2022-03-03 08:00] VITALS: BP 102/69
[2022-03-03] MEDS: POTASSIUM CHLORIDE 20 MEQ TAB.PRT.SR PO SCH (08:22)
[2022-03-03] MEDS: SERTRALINE HCL 25 MG TABLET PO SCH (08:22)
[2022-03-03] MEDS: PANTOPRAZOLE 40 MG TABLET.DR PO SCH (08:22)
[2022-03-03] MEDS: HEPARIN SODIUM, PORCINE 5000 UNITS/1 ML VIAL SQ SCH ×2 (08:29→21:01)
[2022-03-03] MEDS: NICOTINE PATCH (7MG) 7 MG PATCH.TD24 TD SCH (08:30)
[2022-03-03] MEDS: HYDROCODONE/APAP 5/325MG TABLET PO PRN ×2 (09:14→16:26)
[2022-03-03] MEDS: CEFEPIME 2 GM in IV D5W 100 ML IV SCH ×2 (11:44→21:04)
[2022-03-03] MEDS: methylPREDNISolone SOD SUCC 125 MG/2ML VIAL IV SCH ×4 (11:44→21:00)
[2022-03-03 12:00] VITALS: BP 95/65
[2022-03-03] MEDS: LORAZEPAM 0.5 MG TABLET PO PRN ×2 (13:13→20:38)
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
[2022-03-03 16:00] VITALS: BP 111/71
--- NOTE | 2022-03-03 17:30 | NUR ---
RN NOTE PATIENT IS ASKING FOR TRAZODONE MEDICATION FOR SLEEP AT NIGHT AND DOCTOR ORDERED TRAZODONE 100MG NIGHTLY FOR SLEEP. WILL ENDORSE TO NEXT SHIFT NURSE.
--- NOTE | 2022-03-03 18:59 | NUR ---
PUBLIC WORKS COMMISSIONER CLOSING NOTES PATIENT ON BED AWAKE AND A/O X4. ON O2 AT 2LPM VIA NASAL CANNULA TOLERATING WELL. NO SOB NOTED. NOT IN DISTRESS. WITH NO COMPLAINTS OF PAIN OR DISCOMFORT AT THIS TIME. ON TELE MONITOR CURRENTLY READING SINUS RHYTHM AT 77BPM. WITH IV ACCESS AT RIGHT UPPER ARM G20 SALINE LOCKED, PATENT AND INTACT. DUE MEDS GIVEN. SAFETY MEASURES IN PLACED. CALL LIGHT WITHIN REACH. BED ON LOWEST LOCKED POSITION, SIDE RAILS UP X2. WILL ENDORSE TO NEXT SHIFT FOR PUMA.
--- NOTE | 2022-03-03 19:49 | NUR ---
FRICTION PAINT MACHINE TENDER OPENING NOTES PT RECEIVED RESTING IN BED COMFORTABLY; A/OX4, BREATHING EVEN AND UNLABORED; NO SOB NOTED; PT ON NASAL CANNULA 2LPM, SATTING WELL; PT DENIES PAIN, NO DISTRESS NOTED AT THIS TIME; TELE MONITOR READS SINUS RHYTHM; CAPO 18g S/L INTACT AND PATENT, FLUSHING WELL; NO S/S OF REDNESS OR INFILTRATION NOTED; SAFETY PRECAUTIONS IMPLEMENTED; BED LOCKED IN LOW POSITION; SIDE RAILSX2, CALL LIGHT WITHIN REACH; WILL CONT TO MONITOR, CONT PLAN OF CARE
[2022-03-03 20:00] VITALS: BP 102/65
[2022-03-03 20:42] VITALS: BP 102/65
[2022-03-03] MEDS: TRAZODONE 50 MG TABLET PO SCH (21:05)
--- NOTE | 2022-03-03 21:25 | NUR ---
WHEEL AND CASTER REPAIRER NOTES PT REFUSING ACCU CHECK, PT REPORTED HE IS NOT DIABETIC AND DOES NOT WANT HIS ACCU CHECK TO BE DONE TONIGHT; EXPLAINED TO PT MD ORDER, AND IMPORTANCE OF COMPLIANCE THROUGHOUT HOSPITALIZATION; PT STILL REFUSING ACCU CHECK; PER DINORAH US, PT ALSO REFUSING INSULIN COVERAGE IN AM SHIFT; CHARGE NURSE MADE AWARE
[2022-03-03] MEDS ORDERED: TRAZODONE 50 MG TABLET PO PRN (22:00)
[2022-03-04] VITALS (7 sets, daily range): BP systolic 86–107; BP diastolic 55–67
[2022-03-04] MEDS: ALBUTEROL FS 2.5 MG/3 ML VIAL.NEB NEB SCH ×4 (02:13→19:31)
[2022-03-04] MEDS: IPRATROPIUM NEB FS 0.5 MG/2.5 ML AMPUL.NEB IH SCH ×4 (02:14→19:31)
[2022-03-04] MEDS: LORAZEPAM 0.5 MG TABLET PO PRN ×2 (03:01→14:50)
[2022-03-04] MEDS: methylPREDNISolone SOD SUCC 125 MG/2ML VIAL IV SCH ×3 (04:27→21:50)
[2022-03-04] MEDS: CEFEPIME 2 GM in IV D5W 100 ML IV SCH ×3 (04:27→21:50)
[2022-03-04 06:09] LABS: ALBUMIN 3.1 g/dL (3.4-5.0); ALKALINE PHOSPHATASE 82 U/L (46-116); BILIRUBIN,TOTAL 0.7 mg/dL (0.2-1.0); CALCIUM, SERUM 9.1 mg/dL (8.5-10.1); CARBON DIOXIDE 32 mmol/L (21-32); CHLORIDE 97 mmol/L (98-107); CREATININE 1.1 mg/dL (0.6-1.3); GLUCOSE 240 mg/dL (74-106); MAGNESIUM 2.1 mg/dL (1.8-2.4); PHOSPHORUS 4.2 mg/dL (2.5-4.9); POTASSIUM 3.9 mmol/L (3.5-5.1); SODIUM SERUM 135 mmol/L (136-145); TOTAL PROTEIN, SERUM 7.1 g/dL (6.4-8.2); UREA NITROGEN, BLOOD 19 mg/dL (7-18)
--- NOTE | 2022-03-04 06:09 | NUR ---
PARIMUTUEL TICKET SELLER NOTES PT R AC #18 DISLODGED, NEW IV ACCESS ESTABLISHED ON L FA #22G, FLUSHING WELL; TOLERATING IVF WELL;
[2022-03-04 06:33] LABS: HEMATOCRIT 37 % (39-51); LYMPHOCYTES # (AUTO) 0.2 K/uL (0.8-4.8); LYMPHOCYTES % (AUTO) 3.7 % (20.0-44.0); MEAN CORPUSCULAR HGB CONC 33 g/dl (31.0-36.0); MEAN CORPUSCULAR VOLUME 83 fL (80-96); MONOCYTES # (AUTO) 0.1 K/uL (0.1-1.30); MONOCYTES % (AUTO) 1.7 % (2.0-12.0); NEUTROPHILS # (AUTO) 5.1 K/uL (1.8-8.9); NEUTROPHILS % (AUTO) 94.6 % (43.0-81.0); PLATELET COUNT (AUTO) 196 K/uL (150-450); RED BLOOD CELL COUNT(AUTO) 4.41 MIL/uL (4.5-6.0); WHITE BLOOD COUNT (AUTO) 5.3 K/uL (4.3-11.0)
[2022-03-04] MEDS: LEVOTHYROXINE SODIUM 75 MCG TABLET PO SCH (06:33)
[2022-03-04] MEDS: BLOOD SUGAR DIAGNOSTIC 1 EACH STRIP IN SCH ×3 (06:33→17:15)
[2022-03-04] MEDS: PANTOPRAZOLE 40 MG TABLET.DR PO SCH (06:33)
[2022-03-04 06:34] LABS: ALANINE AMINOTRANSFERASE < 6 U/L (12-78); ASPARTATE AMINOTRANSFERASE 8 U/L (15-37)
--- NOTE | 2022-03-04 06:43 | NUR ---
PAD ASSEMBLER CLOSING NOTES PT RESTING IN BED COMFORTABLY; A/OX4, BREATHING EVEN AND UNLABORED; NO SOB NOTED; PT ON NASAL CANNULA 2LPM, SATTING WELL; PT DENIES PAIN, NO DISTRESS NOTED AT THIS TIME; TELE MONITOR READS SINUS RHYTHM 70S; LFA #22G INTACT AND PATENT, FLUSHING WELL; NO S/S OF REDNESS OR INFILTRATION NOTED; ALL NEEDS RENDERED; SAFETY PRECAUTIONS IMPLEMENTED; BED LOCKED IN LOW POSITION; SIDE RAILSX2, CALL LIGHT WITHIN REACH; WILL ENDORSE CONTINUITY OF CARE TO ONCOMING SHIFT
--- NOTE | 2022-03-04 07:18 | NUR ---
HAND ETCHER OPENING NOTES PT RECEIVED AWAKE IN BED IN NO ACUTE SIGNS OF DISTRESS. A/OX4. ABLE TO MAKE NEEDS KNOWN, DENIES PAIN OR ANY DISCOMFORTS AT THIS TIME. ON 02 VIA N/C AT 2LPM, TOLERATING WELL, BREATHING EVEN AND UNLABORED. TELE- MONITOR READS NSR, HR ON THE 70'S, NO C/O CARDIAC DISTRESS VOICED AT THIS TIME. IV ACCESS ON LFA G#22L INTACT, PATENT AND FLUSHING WELL. SAFETY PRECAUTIONS MAINTAINED: BED LOCKED IN LOW POSITION; SIDE RAILS UPX2 AND CALL LIGHT WITHIN REACH. WILL CONT TO MONITOR PT.
[2022-03-04] MEDS: NICOTINE PATCH (7MG) 7 MG PATCH.TD24 TD SCH (08:27)
[2022-03-04] MEDS: SERTRALINE HCL 25 MG TABLET PO SCH (08:27)
[2022-03-04] MEDS: POTASSIUM CHLORIDE 20 MEQ TAB.PRT.SR PO SCH (08:27)
[2022-03-04] MEDS: HEPARIN SODIUM, PORCINE 5000 UNITS/1 ML VIAL SQ SCH ×2 (08:31→21:52)
[2022-03-04] MEDS: FUROSEMIDE 40 MG/4 ML VIAL IV SCH ×2 (08:31→16:22)
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
--- NOTE | 2022-03-04 13:51 | NUR ---
RN NOTES PT REQUESTED IF HE CAN HAVE ENSURE WITH MEALS. DR ARCHER MADE AWARE AND STATED "OK".
--- NOTE | 2022-03-04 14:53 | NUR ---
RN NOTES PT NOTED ANXIOUS IN BED. PRN ATIVAN 0.5 MG TAB GIVEN AT 1450. WILL CONTINUE TO MONITOR.
[2022-03-04] MEDS ORDERED: ENSURE ENLIVE 237 ML LIQUID (VANILLA) PO SCH (17:00)
[2022-03-04] MEDS: ENSURE ENLIVE 237 ML LIQUID (VANILLA) PO SCH (18:05)
[2022-03-04] MEDS: HYDROCODONE/APAP 5/325MG TABLET PO PRN (18:28)
--- NOTE | 2022-03-04 18:32 | NUR ---
RN NOTES PT C/O GENERALIZED PAIN, 6/10 SCALE. PRN NORCO 5/325 MG TAB PO GIVEN AT 1828. WILL CONTINUE TO MONITOR AND REASSESS PT.
--- NOTE | 2022-03-04 18:40 | NUR ---
MS RN CLOSING NOTES PT AWAKE AND WATCHING TV AT THIS TIME WITH AT BEDSIDE. A/OX4. ABLE TO MAKE NEEDS KNOWN. ON 02 VIA N/C AT 2LPM, TOLERATING WELL, BREATHING EVEN AND UNLABORED. IV SL ON LFA G#22L INTACT, PATENT AND FLUSHING WELL. ALL NEEDS AND CARE ATTENDED WELL. SAFETY PRECAUTIONS MAINTAINED: BED LOCKED IN LOW POSITION, SIDE-RAILS UPX2, CALL LIGHT AND TRAY TABLE WITHIN EASY REACH OF PT. WILL ENDORSE PUMA TO SUPERVISOR CUSTOMER SERVICES NURSE.
--- NOTE | 2022-03-04 19:15 | NUR ---
MS RN OPENING NOTES RECEIVED PATIENT LAYING AWAKE IN BED. A/O X4. PATIENT WITH REGULAR AND UNLABORED BREATHING ON 2 LPM VIA NASAL CANULA TOLERATED WELL. NO SIGNS AND SYMPTOMS OF DISTRESS NOTED AT THIS TIME. NO COMPLAINS OF PAIN OR DISCOMFORT AT THIS TIME. IV ACCESS LFA G #22 SL. IV ACCESS PATENT AND INTACT. SAFETY PRECAUTIONS ENFORCED WITH BED LOCKED AND AT LOWEST POSITION. CALL LIGHT WITHIN REACH AT ALL TIMES. WILL CONTINUE TO MONITOR PATIENT.
[2022-03-04] MEDS: TRAZODONE 50 MG TABLET PO SCH (21:50)
[2022-03-05] MEDS: IPRATROPIUM NEB FS 0.5 MG/2.5 ML AMPUL.NEB IH SCH ×4 (00:36→20:15)
[2022-03-05] MEDS: ALBUTEROL FS 2.5 MG/3 ML VIAL.NEB NEB SCH ×4 (00:36→20:15)
[2022-03-05] MEDS: CEFEPIME 2 GM in IV D5W 100 ML IV SCH ×3 (04:34→20:56)
[2022-03-05] MEDS: methylPREDNISolone SOD SUCC 125 MG/2ML VIAL IV SCH ×3 (04:34→20:56)
[2022-03-05] MEDS: LORAZEPAM 0.5 MG TABLET PO PRN ×2 (04:54→15:38)
--- NOTE | 2022-03-05 06:57 | NUR ---
MS RN CLOSING NOTES PATIENT STILL LAYING AWAKE IN BED. A/O X4. PATIENT WITH REGULAR AND UNLABORED BREATHING ON 2 LPM VIA NASAL CANULA TOLERATED WELL. NO SIGNS AND SYMPTOMS OF DISTRESS NOTED AT THIS TIME. NO COMPLAINS OF PAIN OR DISCOMFORT AT THIS TIME. IV ACCESS LFA G #22 SL. IV ACCESS PATENT AND INTACT. SAFETY PRECAUTIONS ENFORCED WITH BED LOCKED AND AT LOWEST POSITION. CALL LIGHT WITHIN REACH AT ALL TIMES. WILL ENDORSE CONTINUITY OF CARE TO DAY SHIFT NURSE.
[2022-03-05] MEDS: FUROSEMIDE 40 MG/4 ML VIAL IV SCH ×2 (09:00→17:38)
[2022-03-05] MEDS: POTASSIUM CHLORIDE 20 MEQ TAB.PRT.SR PO SCH (09:00)
[2022-03-05] MEDS: LEVOTHYROXINE SODIUM 75 MCG TABLET PO SCH (09:01)
[2022-03-05] MEDS: NICOTINE PATCH (7MG) 7 MG PATCH.TD24 TD SCH (09:01)
[2022-03-05] MEDS: SERTRALINE HCL 25 MG TABLET PO SCH (09:01)
[2022-03-05] MEDS: HEPARIN SODIUM, PORCINE 5000 UNITS/1 ML VIAL SQ SCH ×2 (09:02→21:00)
[2022-03-05] MEDS: PANTOPRAZOLE 40 MG TABLET.DR PO SCH (09:03)
[2022-03-05] MEDS: ENSURE ENLIVE 237 ML LIQUID (VANILLA) PO SCH ×3 (09:03→17:38)
[2022-03-05 09:32] LABS: BASOPHILS % (AUTO) 0.2 % (0.0-2.0); HEMATOCRIT 38 % (39-51); LYMPHOCYTES # (AUTO) 0.2 K/uL (0.8-4.8); LYMPHOCYTES % (AUTO) 1.7 % (20.0-44.0); MEAN CORPUSCULAR HGB CONC 32 g/dl (31.0-36.0); MEAN CORPUSCULAR VOLUME 84 fL (80-96); MONOCYTES # (AUTO) 0.4 K/uL (0.1-1.30); NEUTROPHILS % (AUTO) 95.1 % (43.0-81.0); PLATELET COUNT (AUTO) 210 K/uL (150-450); RED BLOOD CELL COUNT(AUTO) 4.51 MIL/uL (4.5-6.0); WHITE BLOOD COUNT (AUTO) 13.6 K/uL (4.3-11.0)
[2022-03-05 09:45] LABS: CALCIUM, SERUM 9.5 mg/dL (8.5-10.1); CREATININE 1.1 mg/dL (0.6-1.3); POTASSIUM 4.1 mmol/L (3.5-5.1)
[2022-03-05] MEDS: HYDROCODONE/APAP 5/325MG TABLET PO PRN (14:45)
--- NOTE | 2022-03-05 19:29 | NUR ---
RN OPENING NOTES RECEIVED PT IN BED, ASLEEP, AWAKENS TO VERBAL STIMULI. AOx4. ON NC 3LPM AND TOLERATING WELL. NO SOB NOTED. NO S/SX OF RESPIRATORY DISTRESS NOTED. IV ACCESS IN LFA #22G. IV IS INTACT, PATENT, AND FLUSHING WELL. SAFETY PRECAUTIONS IN PLACE: BED IN LOWEST, LOCKED POSITION, SIDERAILS UPx2, AND BRAKES ON. TABLE AND CALL LIGHT WITHIN REACH. WILL CONTINUE TO MONITOR.
[2022-03-05 20:00] VITALS: BP 110/75
[2022-03-05] MEDS: TRAZODONE 50 MG TABLET PO SCH (21:00)
[2022-03-06] MEDS: HYDROCODONE/APAP 5/325MG TABLET PO PRN ×2 (01:08→16:27)
--- NOTE | 2022-03-06 01:08 | NUR ---
ADMINISTERED NORCO FOR PAIN PER MD ORDER. VS WNL. WILL CONTINUE TO MONITOR.
[2022-03-06] MEDS: IPRATROPIUM NEB FS 0.5 MG/2.5 ML AMPUL.NEB IH SCH ×4 (01:30→20:03)
[2022-03-06] MEDS: ALBUTEROL FS 2.5 MG/3 ML VIAL.NEB NEB SCH ×4 (01:30→20:03)
[2022-03-06] MEDS: CEFEPIME 2 GM in IV D5W 100 ML IV SCH ×3 (04:07→21:02)
[2022-03-06] MEDS: methylPREDNISolone SOD SUCC 125 MG/2ML VIAL IV SCH ×3 (04:07→21:00)
[2022-03-06 05:53] LABS: CALCIUM, SERUM 9.5 mg/dL (8.5-10.1); CARBON DIOXIDE 32 mmol/L (21-32); CHLORIDE 98 mmol/L (98-107); CREATININE 1.1 mg/dL (0.6-1.3); GLUCOSE 142 mg/dL (74-106); POTASSIUM 4.7 mmol/L (3.5-5.1); SODIUM SERUM 135 mmol/L (136-145); UREA NITROGEN, BLOOD 51 mg/dL (7-18)
[2022-03-06] MEDS: MAGNESIUM HYDROXIDE 30 ML UDC PO PRN (06:14)
[2022-03-06] MEDS: LEVOTHYROXINE SODIUM 75 MCG TABLET PO SCH (06:15)
[2022-03-06 06:29] LABS: HEMATOCRIT 38 % (39-51); HEMOGLOBIN 12.1 g/dL (13.5-17.5); LYMPHOCYTES # (AUTO) 0.3 K/uL (0.8-4.8); LYMPHOCYTES % (AUTO) 2.2 % (20.0-44.0); MEAN CORPUSCULAR HGB CONC 32 g/dl (31.0-36.0); MEAN CORPUSCULAR VOLUME 84 fL (80-96); MONOCYTES # (AUTO) 0.6 K/uL (0.1-1.30); MONOCYTES % (AUTO) 3.8 % (2.0-12.0); NEUTROPHILS # (AUTO) 14.1 K/uL (1.8-8.9); PLATELET COUNT (AUTO) 207 K/uL (150-450); RED BLOOD CELL COUNT(AUTO) 4.49 MIL/uL (4.5-6.0)
--- NOTE | 2022-03-06 06:46 | NUR ---
RN CLOSING NOTES PT IN BED, AWAKE, WATCHING TV. AOx4. ON NC 3LPM AND TOLERATING WELL. NO SOB NOTED. NO S/SX OF RESPIRATORY DISTRESS NOTED. IV ACCESS IN L HAND #20G. IV IS INTACT, PATENT, AND FLUSHING WELL. ALL NEEDS MET. PT KEPT CLEAN AND DRY. TREATED PAIN ONCE DURING SHIFT. SAFETY PRECAUTIONS IN PLACE: BED IN LOWEST, LOCKED POSITION, SIDERAILS UPx2, AND BRAKES ON. TABLE AND CALL LIGHT WITHIN REACH. WILL ENDORSE TO ONCOMING SHIFT FOR PUMA.
--- NOTE | 2022-03-06 07:18 | NUR ---
RESP TX DEFERRED PER PTS REQUEST WILL CONT TO MONITOR Addendum: 03/06/22 at 0718 by ISABEL GARDNER RT Amended: Links added.
[2022-03-06] MEDS: FUROSEMIDE 40 MG/4 ML VIAL IV SCH (08:18)
[2022-03-06] MEDS: POTASSIUM CHLORIDE 20 MEQ TAB.PRT.SR PO SCH (08:18)
[2022-03-06] MEDS: NICOTINE PATCH (7MG) 7 MG PATCH.TD24 TD SCH (08:18)
[2022-03-06] MEDS: PANTOPRAZOLE 40 MG TABLET.DR PO SCH (08:18)
[2022-03-06] MEDS: ENSURE ENLIVE 237 ML LIQUID (VANILLA) PO SCH ×3 (08:19→18:12)
[2022-03-06] MEDS: SERTRALINE HCL 25 MG TABLET PO SCH (08:20)
[2022-03-06] MEDS: HEPARIN SODIUM, PORCINE 5000 UNITS/1 ML VIAL SQ SCH ×2 (08:22→21:00)
[2022-03-06] MEDS: MORPHINE SULFATE INJ 2 MG/ML DISP.SYRIN IV PRN ×2 (08:55→20:44)
[2022-03-06] MEDS ORDERED: FUROSEMIDE 40 MG TABLET PO SCH (09:00)
[2022-03-06 12:00] VITALS: BP 109/76
--- NOTE | 2022-03-06 19:30 | NUR ---
RN opening notes Received Pt from morning nurse. Pt is sitting in bed comfortably watching TV. Pt is alert and orienetdX4. On 4 L NC. No SOB. No S/S of distress noted. IV site at L hand# 20 is clean, intact and flushes well. Safety precautions is maintained. bed at low position, brakes locked, side rails upX2, hob elevated, urinal at the bed side and call light is within reach. Will continue to monitor.
[2022-03-06 20:00] VITALS: BP 117/80
[2022-03-06 20:08] VITALS: BP 117/80
--- NOTE | 2022-03-06 20:44 | NUR ---
RN notes Pt is complaining of generalized pain and requesting morphine. Administered morphine 2 mg/iv push/prn as ordered per Pt' request. VS is stable. safety precautions is maintained.
[2022-03-06] MEDS: TRAZODONE 50 MG TABLET PO SCH (21:59)
[2022-03-07] MEDS: LORAZEPAM 0.5 MG TABLET PO PRN ×2 (00:36→11:25)
--- NOTE | 2022-03-07 00:43 | NUR ---
RN notes Pt is feeling anxious, screaming and yelling at staffs. Pt stated "I need ativan!!" Administered ativan 0.5mg/po/prn as ordered for anxiety per Pt' requested. Safety precautions is maintained. Will continue to monitor.
--- NOTE | 2022-03-07 01:15 | NUR ---
RN notes Pt is complaining of heartburn and requesting meds. administered maalox/po/prn as ordered for heartburn. Will continue to monitor.
[2022-03-07] MEDS: IPRATROPIUM NEB FS 0.5 MG/2.5 ML AMPUL.NEB IH SCH ×4 (01:41→19:44)
[2022-03-07] MEDS: ALBUTEROL FS 2.5 MG/3 ML VIAL.NEB NEB SCH ×4 (01:41→19:44)
[2022-03-07] MEDS: CEFEPIME 2 GM in IV D5W 100 ML IV SCH ×3 (05:33→21:16)
--- NOTE | 2022-03-07 06:30 | NUR ---
RN notes Pt's Cathy ([phone]) called and requesting to have Dr. Manuel to call her. Also informed Cathy that Pt is stable, only slept for 4 hours and watching tv comfortably at this time. Will endorse to am nurse.
[2022-03-07 06:38] LABS: HEMATOCRIT 36 % (39-51); HEMOGLOBIN 11.8 g/dL (13.5-17.5); LYMPHOCYTES # (AUTO) 0.3 K/uL (0.8-4.8); LYMPHOCYTES % (AUTO) 2.4 % (20.0-44.0); MEAN CORPUSCULAR HGB CONC 33 g/dl (31.0-36.0); MEAN CORPUSCULAR VOLUME 84 fL (80-96); MONOCYTES # (AUTO) 1.2 K/uL (0.1-1.30); MONOCYTES % (AUTO) 8.9 % (2.0-12.0); NEUTROPHILS # (AUTO) 11.6 K/uL (1.8-8.9); NEUTROPHILS % (AUTO) 88.7 % (43.0-81.0); PLATELET COUNT (AUTO) 196 K/uL (150-450); RED BLOOD CELL COUNT(AUTO) 4.34 MIL/uL (4.5-6.0); WHITE BLOOD COUNT (AUTO) 13.1 K/uL (4.3-11.0)
--- NOTE | 2022-03-07 06:44 | NUR ---
RN closing notes Pt is sleeping in bed comfortably. Pt is alert and orientedX4. On 4 L NC. No SOB. No S/S of distress noted. IV site at L hand# 20 is clean, intact and SL. VS is stable. Routine meds were given as ordered including PRN meds per Pt request. Kept Pt clean, dry and comfortable. All needs met and attended. Safety precautions is maintained. bed at low position, brakes locked, side rails upX2, hob elevated, urinal at the bed side and call light is within reach. Will endorse to am nurse for PUMA.
[2022-03-07 06:51] LABS: ALBUMIN 3.4 g/dL (3.4-5.0); BILIRUBIN,TOTAL 0.4 mg/dL (0.2-1.0); CALCIUM, SERUM 9.3 mg/dL (8.5-10.1); CREATININE 1.1 mg/dL (0.6-1.3); POTASSIUM 4.9 mmol/L (3.5-5.1); TOTAL PROTEIN, SERUM 7.3 g/dL (6.4-8.2)
--- NOTE | 2022-03-07 07:00 | NUR ---
MS RN OPENING NOTES PATIENT SLEEPING IN BED, AROUSABLE BY NAME TO A/O X 4, TOLERATING WELL ON 4 LPM O2 VIA CANNULA WITH NO S/S SOB OR RESPIRATORY DISTRESS. NO COMPLAINTS OF PAIN OR DISCOMFORT NOTED. L HAND # 20 G CLEAN, INTACT, AND FLUSHING WELL. SAFETY MEASURES IN PLACE: BED IN LOWEST LOCKED POSITION, SIDE RAILS UP X 2, CALL LIGHT WITHIN REACH. WILL CONTINUE TO MONITOR.
[2022-03-07] MEDS: LEVOTHYROXINE SODIUM 75 MCG TABLET PO SCH (07:39)
[2022-03-07] MEDS: PANTOPRAZOLE 40 MG TABLET.DR PO SCH (07:39)
[2022-03-07] MEDS: ENSURE ENLIVE 237 ML LIQUID (VANILLA) PO SCH ×3 (07:50→17:01)
[2022-03-07] MEDS: methylPREDNISolone SOD SUCC 125 MG/2ML VIAL IV SCH ×2 (08:25→21:16)
[2022-03-07] MEDS: SERTRALINE HCL 25 MG TABLET PO SCH (08:25)
[2022-03-07] MEDS: HEPARIN SODIUM, PORCINE 5000 UNITS/1 ML VIAL SQ SCH ×2 (08:27→21:17)
[2022-03-07] MEDS: NICOTINE PATCH (7MG) 7 MG PATCH.TD24 TD SCH (08:27)
[2022-03-07] MEDS ORDERED: FUROSEMIDE 40 MG TABLET PO SCH (09:00)
--- NOTE | 2022-03-07 11:29 | NUR ---
MS RN NOTES PATIENT COMPLAINT OF ANXIETY AND REQUESTING MEDICATION. PRN ATIVAN 0.5 MG PO ADMINISTERED ORDERED. WILL CONTINUE TO MONITOR FOR S/S OF ANXIETY.
--- NOTE | 2022-03-07 19:02 | NUR ---
MS RN CLOSING NOTES PATIENT LAYING IN BED, A/O X 4, TOLERATING WELL ON 4 LPM O2 VIA CANNULA WITH NO S/S SOB OR RESPIRATORY DISTRESS. HOB ELEVATED. NO COMPLAINTS OF PAIN OR DISCOMFORT AT THIS TIME. L HAND # 20 G CLEAN, INTACT, AND FLUSHING WELL. All NEEDS MET DURING SHIFT. SAFETY MEASURES IN PLACE: BED IN LOWEST LOCKED POSITION, SIDE RAILS UP X 2, CALL LIGHT WITHIN REACH. WILL ENDORSE TO INFRASTRUCTURE DEVELOPER FOR PUMA.
--- NOTE | 2022-03-07 19:36 | NUR ---
MS RN OPENING NOTES: RECEIVED PATIENT SLEEP IN BED, BED IN LOW POSITION, CALL LIGHTS WITHIN REACH, NO COMPLAIN OF PAIN AND DISCOMFORT AT THIS TIME, ON O2 INHALATION AT 2LPM SATURATING WELL, ACCOMPANIED BY FAMILY, WITH IV LINE AT L HAND# 20 SL, PATIENT KEPT CLEAN AND DRY ALL NEEDS MET ENDORSE TO INCOMING SHIFT.
[2022-03-07] MEDS: TRAZODONE 50 MG TABLET PO SCH (22:17)
[2022-03-08] MEDS: IPRATROPIUM NEB FS 0.5 MG/2.5 ML AMPUL.NEB IH SCH ×4 (02:06→19:56)
[2022-03-08] MEDS: ALBUTEROL FS 2.5 MG/3 ML VIAL.NEB NEB SCH ×4 (02:06→19:56)
[2022-03-08] MEDS: LORAZEPAM 0.5 MG TABLET PO PRN ×3 (02:56→19:36)
[2022-03-08] MEDS: CEFEPIME 2 GM in IV D5W 100 ML IV SCH ×3 (05:15→21:08)
[2022-03-08 06:25] LABS: CALCIUM, SERUM 9.3 mg/dL (8.5-10.1); POTASSIUM 4.7 mmol/L (3.5-5.1)
[2022-03-08 06:30] LABS: HEMATOCRIT 36 % (39-51); HEMOGLOBIN 11.7 g/dL (13.5-17.5); LYMPHOCYTES # (AUTO) 0.2 K/uL (0.8-4.8); LYMPHOCYTES % (AUTO) 2.1 % (20.0-44.0); MEAN CORPUSCULAR HGB CONC 33 g/dl (31.0-36.0); MEAN CORPUSCULAR VOLUME 84 fL (80-96); MONOCYTES # (AUTO) 0.5 K/uL (0.1-1.30); NEUTROPHILS # (AUTO) 10.2 K/uL (1.8-8.9); NEUTROPHILS % (AUTO) 92.9 % (43.0-81.0); PLATELET COUNT (AUTO) 186 K/uL (150-450); RED BLOOD CELL COUNT(AUTO) 4.29 MIL/uL (4.5-6.0); WHITE BLOOD COUNT (AUTO) 10.9 K/uL (4.3-11.0)
--- NOTE | 2022-03-08 07:00 | NUR ---
MS RN OPENING NOTES PATIENT LAYING IN BED, A/O X 4, TOLERATING WELL ON 4 LPM O2 VIA CANNULA WITH NO S/S SOB OR RESPIRATORY DISTRESS. NO COMPLAINTS OF PAIN OR DISCOMFORT NOTED. L HAND # 20 G CLEAN, INTACT, AND FLUSHING WELL. HOB ELEVATED. SAFETY MEASURES IN PLACE: BED IN LOWEST LOCKED POSITION, SIDE RAILS UP X 2, CALL LIGHT WITHIN REACH. WILL CONTINUE TO MONITOR.
[2022-03-08] MEDS: LEVOTHYROXINE SODIUM 75 MCG TABLET PO SCH (07:25)
[2022-03-08] MEDS: PANTOPRAZOLE 40 MG TABLET.DR PO SCH (07:25)
--- NOTE | 2022-03-08 07:52 | NUR ---
MS RN CLOSING NOTES: PATIENT SLEEP IN BED COMFORTABLY, BED IN LOW POSITION CALL LIGHTS WITHIN REACH, NO COMPLAIN OF PAIN AND DISCOMFORT AT THIS TIME, ON O2 INHALATION AT 4LPM SATURATING WELL, PATIENT KEPT CLEAN AND DRY ALL NEEDS MET ENDORSE TO INCOMING SHIFT.
[2022-03-08] MEDS: ENSURE ENLIVE 237 ML LIQUID (VANILLA) PO SCH ×3 (07:58→18:17)
[2022-03-08 08:29] VITALS: BP 107/73
[2022-03-08] MEDS ORDERED: FUROSEMIDE 100 MG/10 ML VIAL IV ONE (08:30)
[2022-03-08] MEDS: NICOTINE PATCH (7MG) 7 MG PATCH.TD24 TD SCH (08:32)
[2022-03-08] MEDS: methylPREDNISolone SOD SUCC 125 MG/2ML VIAL IV SCH (08:33)
[2022-03-08] MEDS: SERTRALINE HCL 25 MG TABLET PO SCH (08:34)
[2022-03-08] MEDS: HEPARIN SODIUM, PORCINE 5000 UNITS/1 ML VIAL SQ SCH ×2 (08:37→21:09)
--- NOTE | 2022-03-08 10:06 | NUR ---
MS RN NOTES PATIENT COMPLAINT OF ANXIETY AND REQUESTING MEDICATION. PRN ATIVAN 0.5 MG PO ADMINISTERED ORDERED. WILL CONTINUE TO MONITOR FOR S/S OF ANXIETY.
[2022-03-08 16:28] VITALS: BP 105/71
--- NOTE | 2022-03-08 18:35 | NUR ---
RN NOTES PT HAVING ANXIETY ATTACK.PRN ATIVAN 0.5 MG GIVEN PO.EFFECTIVE.NO SIGN A/R NOTED.
--- NOTE | 2022-03-08 19:00 | NUR ---
MS RN CLOSING NOTES PATIENT LAYING IN BED, A/O X 4, TOLERATING WELL ON 3 LPM O2 VIA CANNULA WITH NO S/S SOB OR RESPIRATORY DISTRESS. NO COMPLAINTS OF PAIN OR DISCOMFORT NOTED. R FOREARM 20 G CLEAN, INTACT, AND FLUSHING WELL. HOB ELEVATED. SAFETY MEASURES IN PLACE: BED IN LOWEST LOCKED POSITION, SIDE RAILS UP X 2, CALL LIGHT WITHIN REACH. WILL ENDORSE TO COLORED LEATHER SETTER FOR PUMA.
[2022-03-08 20:00] VITALS: BP 109/77
--- NOTE | 2022-03-08 20:10 | NUR ---
MS RN OPENING NOTES PATIENT IN BED A/O X 4, TOLERATING WELL ON 3 LPM O2 VIA CANNULA WITH NO SIGN SOB/ DISTRESS NOTED. NO COMPLAINTS OF PAIN OR DISCOMFORT AT THIS TIME.R HAND # 20 G PATENT AND INTACT. HOB ELEVATED. SAFETY MEASURES IN PLACE: BED IN LOWEST LOCKED POSITION, SIDE RAILS UP X 2, CALL LIGHT WITHIN REACH. WILL CONTINUE TO MONITOR.
[2022-03-08] MEDS: TRAZODONE 50 MG TABLET PO SCH (21:08)
[2022-03-09] MEDS: ALBUTEROL FS 2.5 MG/3 ML VIAL.NEB NEB SCH ×4 (01:26→20:14)
[2022-03-09] MEDS: IPRATROPIUM NEB FS 0.5 MG/2.5 ML AMPUL.NEB IH SCH ×4 (01:26→20:14)
[2022-03-09 01:40] VITALS: BP 109/77
[2022-03-09] MEDS: LORAZEPAM 0.5 MG TABLET PO PRN (03:14)
--- NOTE | 2022-03-09 03:20 | NUR ---
RN NOTES PT HAVING ANXIETY ATTACK.PRN ATIVAN 0.5 MG GIVEN PO.EFFECTIVE.NO SIGN A/R NOTED.
[2022-03-09] MEDS: CEFEPIME 2 GM in IV D5W 100 ML IV SCH ×2 (04:30→12:29)
[2022-03-09] MEDS: LEVOTHYROXINE SODIUM 75 MCG TABLET PO SCH (06:13)
[2022-03-09 06:20] LABS: ALBUMIN 3.2 g/dL (3.4-5.0); BILIRUBIN,TOTAL 0.5 mg/dL (0.2-1.0); CALCIUM, SERUM 9.2 mg/dL (8.5-10.1); CREATININE 1.1 mg/dL (0.6-1.3); MAGNESIUM 2.5 mg/dL (1.8-2.4); PHOSPHORUS 3.3 mg/dL (2.5-4.9); POTASSIUM 4.4 mmol/L (3.5-5.1); TOTAL PROTEIN, SERUM 6.9 g/dL (6.4-8.2)
[2022-03-09 06:53] LABS: HEMATOCRIT 37 % (39-51); LYMPHOCYTES # (AUTO) 0.6 K/uL (0.8-4.8); LYMPHOCYTES % (AUTO) 4.7 % (20.0-44.0); MEAN CORPUSCULAR HGB CONC 32 g/dl (31.0-36.0); MEAN CORPUSCULAR VOLUME 84 fL (80-96); MONOCYTES # (AUTO) 1.2 K/uL (0.1-1.30); MONOCYTES % (AUTO) 10.1 % (2.0-12.0); NEUTROPHILS # (AUTO) 10.2 K/uL (1.8-8.9); NEUTROPHILS % (AUTO) 85.2 % (43.0-81.0); PLATELET COUNT (AUTO) 194 K/uL (150-450); RED BLOOD CELL COUNT(AUTO) 4.39 MIL/uL (4.5-6.0)
--- NOTE | 2022-03-09 06:56 | NUR ---
MS RN CLOSING NOTES PATIENT IN BED, A/O X 4, TOLERATING WELL ON 3 LPM O2 VIA CANNULA WITH NO SIGN SOB/ DISTRESS NOTED.NO COMPLAINTS OF PAIN OR DISCOMFORT NOTED. R FOREARM 20 G CLEAN, INTACT, AND FLUSHING WELL. HOB ELEVATED. SAFETY MEASURES IN PLACE: BED IN LOWEST LOCKED POSITION, SIDE RAILS UP X 2, CALL LIGHT WITHIN REACH. WILL ENDORSE TO NEXT SHIFT.
--- NOTE | 2022-03-09 07:55 | NUR ---
MS RN OPENING NOTE Patient in bed, awake. A/O x 3, able to make needs known. On O2 at 3 LPM via NC, breathing evenly and unlabored. No SOB or s/s of distress noted. IV access on RFA #20 SL, intact and patent. Safety precautions in place: bed inlow, locked position; siderails up x 2; call light within reach. Will continue to monitor.
[2022-03-09 08:29] VITALS: BP 114/77
[2022-03-09] MEDS ORDERED: methylPREDNISolone SOD SUCC 125 MG/2ML VIAL IV SCH (09:00)
[2022-03-09] MEDS: PANTOPRAZOLE 40 MG TABLET.DR PO SCH (09:20)
[2022-03-09] MEDS: NICOTINE PATCH (7MG) 7 MG PATCH.TD24 TD SCH (09:20)
[2022-03-09] MEDS: SERTRALINE HCL 25 MG TABLET PO SCH (09:20)
[2022-03-09] MEDS: ENSURE ENLIVE 237 ML LIQUID (VANILLA) PO SCH ×3 (09:20→17:43)
[2022-03-09] MEDS: HEPARIN SODIUM, PORCINE 5000 UNITS/1 ML VIAL SQ SCH ×2 (09:21→21:05)
[2022-03-09] MEDS ORDERED: BUMETANIDE INJ 8 MG in IV NS 0.9% 48 ML IV ONE (10:30)
--- NOTE | 2022-03-09 13:46 | NUR ---
PT returned to 3L NC Addendum: 03/09/22 at 1351 by LAYTON WARE RT Amended: Links added.
--- NOTE | 2022-03-09 14:27 | NUR ---
RN NOTE Patient's IV access got infiltrated, patient refusing IV re-insertion. Dr. Manuel aware.
[2022-03-09 15:54] VITALS: BP 119/76
--- NOTE | 2022-03-09 17:00 | NUR ---
RN NOTE Patient agreed to IV insertion, IV access now on Left wrist with Bumex infusing at 10 ml/hr. Addendum: 03/09/22 at 1821 by ARMEN DENNEY RN ADD: Dr. Manuel notified.
--- NOTE | 2022-03-09 18:52 | NUR ---
MS RN CLOSING NOTE Patient in bed, resting. A/O x 3, able to make needs known. On O2 at 3 LPM via NC, breathing evenly and unlabored. No SOB or s/s of distress noted. IV access on Left wrist #22 SL, intact and patent. Due meds given. all needs attended to. Safety precautions maintained: bed inlow, locked position; siderails up x 2; call light within reach. Will endorse to civil manager nurse for PUMA.
--- NOTE | 2022-03-09 19:30 | NUR ---
RN OPENING NOTE PATIENT SITTING ON THE CHAIR, A/O X 4. ABLE TO MAKE NEEDS KNOWN. PJ AT BEDSIDE. PATIENT IS CURRENTLY ON 3 LPM, SOB NOTED. PATIENT HAS BUMEX 10 CC/HR ONGOING. PATIENT HAS A L WRIST 22G PATENT AND INTACT. PATIENT DOES NOT HAVE ANY PAIN AT THIS TIME. SAFETY MEASURES IN PLACE: BED LOCKED AND IN LOWEST POSITION, CALL LIGHT WITHIN REACH, SIDE RAILS UP. WILL MONITOR PATIENT CLOSELY.
[2022-03-09 20:00] VITALS: BP 114/86
[2022-03-09] MEDS: TRAZODONE 50 MG TABLET PO SCH (21:04)
[2022-03-10] MEDS: LORAZEPAM 0.5 MG TABLET PO PRN (01:02)
[2022-03-10] MEDS: CEFEPIME 2 GM in IV D5W 100 ML IV SCH ×4 (01:05→20:42)
[2022-03-10] MEDS: IPRATROPIUM NEB FS 0.5 MG/2.5 ML AMPUL.NEB IH SCH ×4 (01:42→20:08)
[2022-03-10] MEDS: ALBUTEROL FS 2.5 MG/3 ML VIAL.NEB NEB SCH ×4 (01:42→20:08)
[2022-03-10] MEDS: HYDROCODONE/APAP 5/325MG TABLET PO PRN ×2 (05:17→11:24)
[2022-03-10 06:07] LABS: BASOPHILS % (AUTO) 0.1 % (0.0-2.0); EOSINOPHILS % (AUTO) 0.6 % (0.0-6.0); HEMATOCRIT 40 % (39-51); HEMOGLOBIN 13.4 g/dL (13.5-17.5); LYMPHOCYTES # (AUTO) 0.8 K/uL (0.8-4.8); MEAN CORPUSCULAR HGB CONC 33 g/dl (31.0-36.0); MEAN CORPUSCULAR VOLUME 83 fL (80-96); MONOCYTES # (AUTO) 1.5 K/uL (0.1-1.30); MONOCYTES % (AUTO) 11.1 % (2.0-12.0); NEUTROPHILS # (AUTO) 10.8 K/uL (1.8-8.9); NEUTROPHILS % (AUTO) 82.2 % (43.0-81.0); PLATELET COUNT (AUTO) 200 K/uL (150-450); RED BLOOD CELL COUNT(AUTO) 4.83 MIL/uL (4.5-6.0); WHITE BLOOD COUNT (AUTO) 13.1 K/uL (4.3-11.0)
[2022-03-10 06:26] LABS: ALANINE AMINOTRANSFERASE 31 U/L (12-78); ALBUMIN 3.4 g/dL (3.4-5.0); ALKALINE PHOSPHATASE 93 U/L (46-116); ASPARTATE AMINOTRANSFERASE 12 U/L (15-37); BILIRUBIN,TOTAL 0.8 mg/dL (0.2-1.0); CALCIUM, SERUM 9.5 mg/dL (8.5-10.1); CARBON DIOXIDE 39 mmol/L (21-32); CHLORIDE 91 mmol/L (98-107); GLUCOSE 112 mg/dL (74-106); MAGNESIUM 2.6 mg/dL (1.8-2.4); PHOSPHORUS 3.7 mg/dL (2.5-4.9); POTASSIUM 3.9 mmol/L (3.5-5.1); SODIUM SERUM 135 mmol/L (136-145); TOTAL PROTEIN, SERUM 7.3 g/dL (6.4-8.2); UREA NITROGEN, BLOOD 53 mg/dL (7-18)
[2022-03-10] MEDS: LEVOTHYROXINE SODIUM 75 MCG TABLET PO SCH (06:28)
--- NOTE | 2022-03-10 07:01 | NUR ---
RN CLOSING NOTE PATIENT EYES CLOSED, LAYING IN BED, A/O X 4. ABLE TO MAKE NEEDS KNOWN. PATIENT IS CURRENTLY ON 3 LPM, BREATHING EVEN AND UNLABORED AT THIS TIME. PATIENT HAS A L WRIST 22G PATENT AND INTACT. PATIENT DOES NOT HAVE ANY PAIN, NORCO GIVEN AT 0517. SAFETY MEASURES IN PLACE: BED LOCKED AND IN LOWEST POSITION, CALL LIGHT WITHIN REACH, SIDE RAILS UP. ALL NEEDS MET AND ATTENDED. ALL ORDERS CARRIED OUT. WILL ENDORSE TO DAY SHIFT NURSE FOR PUMA.
--- NOTE | 2022-03-10 07:30 | NUR ---
RN MS NOTES PT IN BED, AWAKE, ALERT AND ORIENTED, NO COMPLAINT OF PAIN, NOT IN DISTRESS, ON O2 AT 2LPM VIA N/C WITH O2 SAT OF 94%, CALL LIGHT WITHIN REACH, NEEDS ATTENDED.
[2022-03-10 08:00] VITALS: BP 95/68
[2022-03-10] MEDS: PANTOPRAZOLE 40 MG TABLET.DR PO SCH (09:13)
[2022-03-10] MEDS: NICOTINE PATCH (7MG) 7 MG PATCH.TD24 TD SCH (09:13)
[2022-03-10] MEDS: SERTRALINE HCL 25 MG TABLET PO SCH (09:13)
[2022-03-10] MEDS: ENSURE ENLIVE 237 ML LIQUID (VANILLA) PO SCH ×3 (09:17→18:38)
[2022-03-10 11:21] LABS: ABG BASE EXCESS 13.4 mmol/L; ABG OXYGEN SATURATION 95.6 % (92.0-98.5); ABG PCO2 48.2 mmHg (35.0-45.0); ABG PH 7.516 (7.350-7.450); AaDO2 66.8 mmHg; COHb 0.9 % (0.5-1.5); MetHb 0.2 % (0.0-1.5); O2Hb 94.5 % (94.0-97.0); SITE, ABG Right Radial; VENT MODE, BG NASAL CANNULA
[2022-03-10] MEDS: predniSONE 20 MG TABLET PO SCH (11:23)
[2022-03-10 16:00] VITALS: BP 103/68
--- NOTE | 2022-03-10 19:00 | NUR ---
RN MS NOTES PT IN BED, RESTING, NO COMPLAINT OF PAIN, RESPIRATIONS NORMAL, CALL LUIGHT WITHIN REACH, ON O2 AT 2LPM VIA N/C, O2 SAT OF 94%, SEEN BY DR. VIGIL AND DR. CASIANO TODAY, PLAN OF CARE DISCUSSED WITH PT, VERBALIZED UNDERSTANDING, VISITED TODAY, INFORMED OF PLAN OF CARE, ASSISTED TO BATHROOM NEEDED, ALL NEEDS ATTENDED.
--- NOTE | 2022-03-10 19:30 | NUR ---
MS/RN OPENING NOTE RECEIVED PATIENT RESTING IN BED. AWAKE, ALERT AND ORIENTED X 4. ABLE TO MAKE NEEDS KNOWN. DENIES PAIN AT THIS TIME. CONTINUES ON O2 2L VIA NC WITH NO S/SX OF RESPIRATORY DISTRESS NOTED. IV ACCESS TO LEFT WRIST #22G INTACT, PATENT AND SALINE LOCKED. CONTINUES ON IV ABX. C/O CONSTIPATION - WILL ADMINISTER PRN MEDICATION PER MD ORDERS. CALL LIGHT WITHIN REACH. ASPIRATION, FALL AND SAFETY PRECAUTIONS MAINTAINED. WILL CONTINUE TO MONITOR.
[2022-03-10] MEDS: MAGNESIUM HYDROXIDE 30 ML UDC PO PRN (19:42)
[2022-03-10 20:00] VITALS: BP 110/74
[2022-03-10] MEDS: TRAZODONE 50 MG TABLET PO SCH (21:55)
--- NOTE | 2022-03-10 22:00 | NUR ---
MS/RN NOTE PATIENT WITH INCREASED AGITATION, YELLING AT STAFF SAYING NO ONE DOES ANYTHING AROUND HERE. PATIENT YELLING "I WANT TO SLEEP!!". ALREADY ADMINISTERED ROUTINE TRAZODONE. PROVIDED WARM BLANKET AND DARK ROOM TO ASSIST IN SLEEP. PATIENT CURRENTLY RESTING IN BED. NO OTHER COMPLAINTS AT THIS TIME.
[2022-03-11] MEDS: ALBUTEROL FS 2.5 MG/3 ML VIAL.NEB NEB SCH ×4 (01:18→20:30)
[2022-03-11] MEDS: IPRATROPIUM NEB FS 0.5 MG/2.5 ML AMPUL.NEB IH SCH ×4 (01:18→20:31)
[2022-03-11] MEDS: LORAZEPAM 0.5 MG TABLET PO PRN ×2 (01:31→15:50)
[2022-03-11] MEDS: CEFEPIME 2 GM in IV D5W 100 ML IV SCH (05:47)
--- NOTE | 2022-03-11 06:10 | NUR ---
MS/RN CLOSING NOTE PATIENT CURRENTLY SLEEPING IN BED. ALERT AND ORIENTED X 3-4. ABLE TO MAKE NEEDS KNOWN. DENIES PAIN AT THIS TIME. CONTINUES ON O2 2L VIA NC WITH NO S/SX OF RESPIRATORY DISTRESS NOTED. IV ACCESS TO LEFT WRIST #22G INTACT, PATENT AND SALINE LOCKED. CONTINUES ON IV ABX. CALL LIGHT WITHIN REACH. ASPIRATION, FALL AND SAFETY PRECAUTIONS MAINTAINED. WILL ENDORSE PLAN OF CARE TO ONCOMING SHIFT.
--- NOTE | 2022-03-11 07:30 | NUR ---
RN MS NOTES PT IN BED, AWAKE, ALERT AND ORIENTED, NO COMPLAINT OF PAIN, NOT IN DISTRESS, ON O2 AT 2LPM VIA N/C, NO COMPLAINT OF SOB, CALL LIGHT WITHIN EASY REACH, KEPT WARM AND COMFORTABLE IN BED, BEEDS ATTENDED.
[2022-03-11] MEDS: SERTRALINE HCL 25 MG TABLET PO SCH (08:07)
[2022-03-11] MEDS: NICOTINE PATCH (7MG) 7 MG PATCH.TD24 TD SCH (08:07)
[2022-03-11] MEDS: PANTOPRAZOLE 40 MG TABLET.DR PO SCH (08:08)
[2022-03-11] MEDS: predniSONE 20 MG TABLET PO SCH (08:08)
[2022-03-11] MEDS: LEVOTHYROXINE SODIUM 75 MCG TABLET PO SCH (08:08)
[2022-03-11] MEDS: ENSURE ENLIVE 237 ML LIQUID (VANILLA) PO SCH ×3 (08:08→17:16)
[2022-03-11] MEDS: SALINE NASAL SPRAY 0.65% 1 BOTTLE BOTTLE NS PRN (14:13)
--- NOTE | 2022-03-11 18:21 | NUR ---
RN MS NOTES PT IN BED, RESTING, NO COMPLAINT AT THIS TIME, ALERT AND ORIENTED, WITH PERIODS OF ANXIETY, NO COMPLAINT OF PAIN, NO SOB, ON O2 AT 2LPM VIA N/C, AT BEDSIDE, PM CARE PROVIDED, SAFETY PRECAUTIONS OBSERVED, SEEN BY DR. CASIANO TODAY, PLAN OF CARE DISCUSSED WITH PT, HELPED WITH DINNER, ALL NEEDS ATTENDED.
--- NOTE | 2022-03-11 19:30 | NUR ---
MS RN OPENING NOTES RECEIVED PATIENT SITTING ON CHAIR. ON BEDSIDE. A/O X3. NO APPARENT DISTRESS NOTED. HAS O2 AT 2 LPM VIA NASAL CANULA. BREATHING EVEN AND UNLABORED. HAS LEFT WRIST IV ACCESS #22G AND SALINE LOCKED. NO S/S OF INFILTRATION NOTED. SAFETY PRECAUTIONS IN PLACE. WILL CONTINUE PLAN OF CARE.
[2022-03-11 20:00] VITALS: BP 113/74
[2022-03-11] MEDS: TRAZODONE 50 MG TABLET PO SCH (21:04)
[2022-03-12] MEDS: ALBUTEROL FS 2.5 MG/3 ML VIAL.NEB NEB SCH ×4 (02:06→19:55)
[2022-03-12] MEDS: IPRATROPIUM NEB FS 0.5 MG/2.5 ML AMPUL.NEB IH SCH ×4 (02:06→19:55)
--- NOTE | 2022-03-12 06:28 | NUR ---
MS RN NOTES PATIENT GAVE A PAPER WITH HIS BREAKFAST ORDER. CALLED DIETARY AND THEY WILL SEND WHAT THEY CAN. INFORMED THE PATIENT.
--- NOTE | 2022-03-12 06:29 | NUR ---
MS RN CLOSING NOTES PATIENT LYING IN BED AWAKE. A/O X3. ABLE TO MAKE NEEDS KNOWN. HAS O2 AT 2 LPM VIA NASAL CANULA. NO SOB OR NOTED. HOB ELEVATED AT 45 DEGREES. NO C/O PAIN AT THIS TIME. HAS LEFT WRIST IV ACCESS #22G AND SALINE LOCKED. INTACT, PATENT AND FLUSHING. ALL NEEDS ATTENDED. KEPT DRY AND COMFORTABLE. SAFETY PRECAUTIONS IN PLACE: BED LOW AND LOCKED, SIDE RAILS UP X2, CALL LIGHT WITHIN REACH.
[2022-03-12] MEDS: PANTOPRAZOLE 40 MG TABLET.DR PO SCH (06:41)
[2022-03-12] MEDS: LEVOTHYROXINE SODIUM 75 MCG TABLET PO SCH (06:41)
--- NOTE | 2022-03-12 07:25 | NUR ---
MS RN OPENING NOTES: RECEIVED PATIENT IN BED, AWAKE, WATCHING TELEVISION. A/O X3. ABLE TO MAKE NEEDS KNOWN. ON O2 AT 2L/MIN NASAL CANNULA. BREATHING EVEN AND UNLABORED. NO S/S OF RESPIRATORY DISTRESS NOTED. L WRIST G#22 IV ACCESS INTACT AND PATENT. SAFETY MEASURES IN PLACE: BED IN LOWEST AND LOCKED POSITION, BED ALARM ON, HOB ELEVATED, BED SIDE RAILS UPX2, CALL LIGHT WITHIN REACH. WILL CONTINUE TO MONITOR PT AND WITH PLAN OF CARE.
[2022-03-12] MEDS: ENSURE ENLIVE 237 ML LIQUID (VANILLA) PO SCH ×3 (08:13→17:55)
[2022-03-12] MEDS: SERTRALINE HCL 25 MG TABLET PO SCH (08:37)
[2022-03-12] MEDS: predniSONE 20 MG TABLET PO SCH (08:37)
[2022-03-12] MEDS: NICOTINE PATCH (7MG) 7 MG PATCH.TD24 TD SCH (08:37)
[2022-03-12 10:17] LABS: CALCIUM, SERUM 9.6 mg/dL (8.5-10.1); POTASSIUM 3.9 mmol/L (3.5-5.1)
[2022-03-12 10:23] LABS: ALBUMIN 3.3 g/dL (3.4-5.0); BILIRUBIN,TOTAL 0.4 mg/dL (0.2-1.0); TOTAL PROTEIN, SERUM 7.2 g/dL (6.4-8.2)
[2022-03-12] MEDS: HYDROCODONE/APAP 5/325MG TABLET PO PRN (15:25)
--- NOTE | 2022-03-12 18:57 | NUR ---
MS RN CLOSING NOTES: PATIENT IN BED, AWAKE, A/O X3. ABLE TO MAKE NEEDS KNOWN. ON O2 AT 2L/MIN NASAL CANNULA. BREATHING EVEN AND UNLABORED. NO S/S OF RESPIRATORY DISTRESS NOTED. L WRIST G#22 IV ACCESS INTACT AND PATENT. ALL NEEDS ATTENDED. SAFETY MEASURES IN PLACE: BED IN LOWEST AND LOCKED POSITION, BED ALARM ON, HOB ELEVATED, BED SIDE RAILS UPX2, CALL LIGHT WITHIN REACH. WILL ENDORSED TO NIGHT NURSE.
[2022-03-12 20:00] VITALS: BP 111/78
[2022-03-12 20:59] VITALS: BP 118/78
--- NOTE | 2022-03-12 21:01 | NUR ---
REPORT Care endorsed to DINORAH Caba for continuity of care. Patient VS remains stable, in no acute distress. Maintained fall precaution.
[2022-03-12] MEDS: TRAZODONE 50 MG TABLET PO SCH (21:15)
--- NOTE | 2022-03-12 21:40 | NUR ---
MS RN OPENING NOTES RECEIVED PATIENT IN BED; AWAKE, ALERT AND ORIENTED X3. BREATHING IS EVEN AND UNLABORED. ON O2 AT 2LPM VIA NASAL CANNULA; TOLERATING WELL. NO SIGNS OR SYMPTOMS OF RESPIRATORY DISTRESS NOTED. WITH IV ACCESS ON LEFT WRIST G#22; INTACT AND SALINE LOCKED. ABLE TO MAKE NEEDS KNOWN. SAFETY MEASURES IMPLEMENTED: CALL BUTTON AND TABLE WITHIN EASY REACH, SIDE RAILS UP X2, BED IN LOWEST LOCKED POSITION. WILL CONTINUE PLAN OF CARE
[2022-03-13] MEDS: IPRATROPIUM NEB FS 0.5 MG/2.5 ML AMPUL.NEB IH SCH ×5 (01:30→19:50)
[2022-03-13] MEDS: ALBUTEROL FS 2.5 MG/3 ML VIAL.NEB NEB SCH ×5 (01:30→19:50)
[2022-03-13] MEDS: LEVOTHYROXINE SODIUM 75 MCG TABLET PO SCH (07:00)
[2022-03-13] MEDS: PANTOPRAZOLE 40 MG TABLET.DR PO SCH (07:30)
[2022-03-13 08:00] VITALS: BP 108/67
--- NOTE | 2022-03-13 08:10 | NUR ---
RN OPENING NOTE PATIENT RECEIVED IN BED, AO X 2-3, CONFUSE, ABLE TO RESPONDS ALL STIMULI. IN NO ACUTE DISTRESS NOTED. RESPIRATORY EVEN AND UNLABORED ON OXYGEN AT 2Ls VIA NC. SKIN IS WARM TO TOUCH, KEEP CLEAN/DRY. KEPT ELEVATED HOB FOR ENSURE AIRWAY AND ASPIRATION PRECAUTION, ALSO LOWEST POSITION OF THE BED, S/R UP X 3, BED ALARM IS ON AT ALL TIMES. ALL SAFETY PRECAUTION APPLIED. CALL LIGHT WITHIN REACH, WILL CONTINUE TO MONITOR.
[2022-03-13] MEDS: SERTRALINE HCL 25 MG TABLET PO SCH (09:00)
[2022-03-13] MEDS: ENSURE ENLIVE 237 ML LIQUID (VANILLA) PO SCH ×3 (09:14→17:05)
[2022-03-13] MEDS: NICOTINE PATCH (7MG) 7 MG PATCH.TD24 TD SCH (09:14)
[2022-03-13] MEDS: predniSONE 20 MG TABLET PO SCH (09:14)
[2022-03-13] MEDS: LORAZEPAM 0.5 MG TABLET PO PRN (10:22)
[2022-03-13 11:15] LABS: BASOPHILS % (AUTO) 0.1 % (0.0-2.0); EOSINOPHILS % (AUTO) 0.4 % (0.0-6.0); HEMATOCRIT 40 % (39-51); HEMOGLOBIN 12.9 g/dL (13.5-17.5); LYMPHOCYTES # (AUTO) 0.9 K/uL (0.8-4.8); LYMPHOCYTES % (AUTO) 6.1 % (20.0-44.0); MEAN CORPUSCULAR HGB CONC 32 g/dl (31.0-36.0); MEAN CORPUSCULAR VOLUME 84 fL (80-96); MONOCYTES # (AUTO) 1.3 K/uL (0.1-1.30); MONOCYTES % (AUTO) 9.1 % (2.0-12.0); NEUTROPHILS # (AUTO) 12.1 K/uL (1.8-8.9); NEUTROPHILS % (AUTO) 84.3 % (43.0-81.0); PLATELET COUNT (AUTO) 200 K/uL (150-450); RED BLOOD CELL COUNT(AUTO) 4.74 MIL/uL (4.5-6.0); WHITE BLOOD COUNT (AUTO) 14.3 K/uL (4.3-11.0)
[2022-03-13 11:36] LABS: CALCIUM, SERUM 9.4 mg/dL (8.5-10.1); CREATININE 0.9 mg/dL (0.6-1.3); POTASSIUM 3.5 mmol/L (3.5-5.1)
[2022-03-13] MEDS ORDERED: LORAZEPAM 0.5 MG TABLET PO PRN (12:30)
[2022-03-13] MEDS ORDERED: PRED20TA PO (15:54)
[2022-03-13 16:00] VITALS: BP 120/93
[2022-03-13] MEDS: MAGNESIUM HYDROXIDE 30 ML UDC PO PRN (16:54)
[2022-03-13] MEDS: HYDROCODONE/APAP 5/325MG TABLET PO PRN (16:54)
--- NOTE | 2022-03-13 19:30 | NUR ---
MS RN OPENING NOTES RECEIVED PATIENT IN BED; AWAKE, ALERT AND ORIENTED X3. BREATHING IS EVEN AND UNLABORED. WITH O2 INHALATION AT 2LPM VIA NASAL CANNULA; TOLERATING WELL. NO SIGNS OR SYMPTOMS OF RESPIRATORY DISTRESS NOTED. WITH IV ACCESS ON LEFT WRIST G#22; INTACT AND SALINE LOCKED. ABLE TO MAKE NEEDS KNOWN. SAFETY MEASURES IMPLEMENTED: CALL BUTTON AND TABLE WITHIN EASY REACH, SIDE RAILS UP X2, BED IN LOWEST LOCKED POSITION. WILL CONTINUE PLAN OF CARE
--- NOTE | 2022-03-13 19:39 | NUR ---
RN CLOSE NOTE PATIENT IN BED, IN NO ACUTE DISTRESS OBSERVED. PATIENT KEPT ON AND OFF OXYGEN. AT BEDSIDE. SKIN IS WARM TO TOUCH KEEP CLEAN//DRY, INTACT IV SITE. KEPT ELEVATED HOB FOR ENSURE AIRWAY AND ASPIRATION PRECAUTION. ALSO LOWEST POSITION OF THE BED FOR SAFETY. CALL LIGHT WITHIN REACH, WILL ENDORSE TO LIVE TRUCK TECHNICIAN.
[2022-03-13 20:15] VITALS: BP 126/70
[2022-03-13] MEDS: TRAZODONE 50 MG TABLET PO SCH (21:54)
[2022-03-14] MEDS: ALBUTEROL FS 2.5 MG/3 ML VIAL.NEB NEB SCH ×4 (00:42→19:55)
[2022-03-14] MEDS: IPRATROPIUM NEB FS 0.5 MG/2.5 ML AMPUL.NEB IH SCH ×4 (00:42→19:55)
[2022-03-14] MEDS ORDERED: BISACODYL SUPP (10 MG) 10 MG/SUPP.RECT SUPP.RECT RC ONE (01:30)
[2022-03-14 06:32] LABS: CALCIUM, SERUM 9.1 mg/dL (8.5-10.1); CREATININE 0.9 mg/dL (0.6-1.3); MAGNESIUM 2.5 mg/dL (1.8-2.4); PHOSPHORUS 3.9 mg/dL (2.5-4.9); POTASSIUM 4.2 mmol/L (3.5-5.1)
--- NOTE | 2022-03-14 07:25 | NUR ---
MS RN CLOSING NOTES PATIENT IN BED; AWAKE, A/O X3. BREATHING EVENLY AND NONLABORED. ON O2 AT 2LPM VIA NASAL CANNULA; TOLERATING WELL. SAFETY MEASURES IN PLACE. NEEDS ATTENDED. ENDORSED TO MORNING SHIFT FOR CONTINUITY OF CARE.
--- NOTE | 2022-03-14 07:30 | NUR ---
RN OPENING NOTES RECEIVED PATIENT IN BED AWAKE, A/O X3. VERBALLY RESPONSIVE, NO SIGNS OF ACUTE DISTRESS NOTED. ON O@ 2 2LPM VIA N/C, SPO2 @98%. NO SOB NOTED. NOTED WITH IV ACCESS ON LEFT WRIST #22G, SALINE LOCKED. NO C/O PAIN AT THIS TIME. SAFETY MEASURE IN PLACE, BED IN LOWEST AND LOCKED POSITION, SIDE RAILS UP X2, CALL LIGHT PLACED WITHIN EASY REACH. WILL CONTINUE TO MONITOR PATIENT.
[2022-03-14 08:00] VITALS: BP 111/74
[2022-03-14] MEDS: LEVOTHYROXINE SODIUM 75 MCG TABLET PO SCH (08:13)
[2022-03-14] MEDS: PANTOPRAZOLE 40 MG TABLET.DR PO SCH (08:14)
[2022-03-14] MEDS: NICOTINE PATCH (7MG) 7 MG PATCH.TD24 TD SCH (08:14)
[2022-03-14] MEDS: ENSURE ENLIVE 237 ML LIQUID (VANILLA) PO SCH ×3 (08:21→17:22)
[2022-03-14] MEDS ORDERED: predniSONE 20 MG TABLET PO SCH (09:00)
[2022-03-14 09:56] LABS: BASOPHILS % (AUTO) 0.1 % (0.0-2.0); EOSINOPHILS % (AUTO) 0.2 % (0.0-6.0); HEMATOCRIT 38 % (39-51); HEMOGLOBIN 12.1 g/dL (13.5-17.5); LYMPHOCYTES # (AUTO) 0.9 K/uL (0.8-4.8); LYMPHOCYTES % (AUTO) 5.9 % (20.0-44.0); MEAN CORPUSCULAR HGB CONC 32 g/dl (31.0-36.0); MEAN CORPUSCULAR VOLUME 85 fL (80-96); MONOCYTES # (AUTO) 1.5 K/uL (0.1-1.30); NEUTROPHILS # (AUTO) 12.3 K/uL (1.8-8.9); NEUTROPHILS % (AUTO) 83.8 % (43.0-81.0); PLATELET COUNT (AUTO) 198 K/uL (150-450); RED BLOOD CELL COUNT(AUTO) 4.46 MIL/uL (4.5-6.0); WHITE BLOOD COUNT (AUTO) 14.7 K/uL (4.3-11.0)
[2022-03-14] MEDS: SALINE NASAL SPRAY 0.65% 1 BOTTLE BOTTLE NS PRN (12:23)
[2022-03-14] MEDS: MAGNESIUM HYDROXIDE 30 ML UDC PO PRN (12:50)
[2022-03-14] MEDS ORDERED: LORA-258 PO (13:55)
[2022-03-14] MEDS ORDERED: SERT50TA PO (13:57)
[2022-03-14] MEDS: SERTRALINE HCL 50 MG TABLET PO SCH (15:07)
[2022-03-14] MEDS: LORAZEPAM 0.5 MG TABLET PO PRN ×2 (15:07→19:56)
[2022-03-14 16:00] VITALS: BP 120/65
[2022-03-14] MEDS: HYDROCODONE/APAP 5/325MG TABLET PO PRN (17:22)
--- NOTE | 2022-03-14 18:58 | NUR ---
RN CLOSING NOTES PATIENT IN BED AWAKE, A/O X3. VERBALLY RESPONSIVE, NO SIGNS OF ACUTE DISTRESS NOTED. REMAINS ON O2 @ 2LPM VIA N/C, SPO2 @98%. NO SOB NOTED. IV ACCESS ON LEFT WRIST #22G, SALINE LOCKED. AT BEDSIDE. ALL DUE MEDS GIVEN, TOLERATED WELL. SAFETY MEASURE IN PLACE, BED IN LOWEST AND LOCKED POSITION, SIDE RAILS UP X2, CALL LIGHT PLACED WITHIN EASY REACH. WILL ENDORSE TO NEXT SHIFT FOR CONTINUITY OF CARE.
--- NOTE | 2022-03-14 19:58 | NUR ---
RT PT RECVD AWAKE AND VERBAL ON ROOM AIR. NEB TX GIVEN AND IFEOMA WELL. NO SOB OR RESPIRATORY DISTRESS NOTED AT THIS TIME. PT AT BEDSIDE.
--- NOTE | 2022-03-14 20:00 | NUR ---
MS RN NOTE PATIENT ANXIOUS AND REQUESTING ATIVAN. ATIVAN 0.5 MG PO GIVEN ORDERED. WILL CONTINUE TO MONITOR PATIENT
[2022-03-14] MEDS: TRAZODONE 50 MG TABLET PO SCH (22:08)
[2022-03-15] MEDS: LORAZEPAM 0.5 MG TABLET PO PRN ×2 (01:02→06:50)
--- NOTE | 2022-03-15 01:05 | NUR ---
MS RN NOTE PATIENT ANXIOUS AND REQUESTING ATIVAN. ATIVAN 0.5 MG PO GIVEN ORDERED. WILL CONTINUE TO MONITOR PATIENT
[2022-03-15] MEDS: ALBUTEROL FS 2.5 MG/3 ML VIAL.NEB NEB SCH ×2 (02:20→07:53)
[2022-03-15] MEDS: IPRATROPIUM NEB FS 0.5 MG/2.5 ML AMPUL.NEB IH SCH ×2 (02:20→07:53)
--- NOTE | 2022-03-15 06:50 | NUR ---
MS RN NOTE PATIENT ANXIOUS AND REQUESTING ATIVAN. ATIVAN 0.5 MG PO GIVEN ORDERED. WILL CONTINUE TO MONITOR PATIENT
--- NOTE | 2022-03-15 07:11 | NUR ---
MS RN CLOSING NOTE PATIENT SLEEPING IN BED, ALERT/ORIENTED X 3, HOWEVER CONFUSED AT TIMES. PT STABLE ON 2 LPM OF OXYGEN VIA NASAL CANNULA, NO S/S OF DISTRESS OR SOB NOTED, BREATHING EVEN AND UNLABORED. MEDICATIONS GIVEN ORDERED, PT NEEDS MET THROUGHOUT SHIFT. LEFT HAND IV ACCESS INTACT AND SALINE LOCKED. SAFETY MEASURES IN PLACE: CALL LIGHT WITHIN REACH, SIDE RAILS UP X 2, BED LOCKED IN LOWEST POSITION, BED ALARM ON. ENDORSED TO DAY SHIFT NURSE FOR CONTINUITY OF CARE
--- NOTE | 2022-03-15 07:19 | NUR ---
RN OPENING NOTES RECEIVED PATIENT IN BED AWAKE, A/O X3. VERBALLY RESPONSIVE, NO SIGNS OF ACUTE DISTRESS NOTED. ON O@ 2 2LPM VIA N/C. SPO2 @97%. IV ACCESS ON LEFT WRIST #22G, SALINE LOCKED. INTACT AND PATENT. NO C/O PAIN AT THIS TIME. SAFETY MEASURE IN PLACE, BED IN LOWEST AND LOCKED POSITION, SIDE RAILS UP X2, CALL LIGHT PLACED WITHIN EASY REACH. WILL CONTINUE TO MONITOR PATIENT.
[2022-03-15] MEDS: LEVOTHYROXINE SODIUM 75 MCG TABLET PO SCH (08:04)
[2022-03-15] MEDS: PANTOPRAZOLE 40 MG TABLET.DR PO SCH (08:04)
[2022-03-15] MEDS: SERTRALINE HCL 50 MG TABLET PO SCH (08:04)
[2022-03-15] MEDS: ENSURE ENLIVE 237 ML LIQUID (VANILLA) PO SCH (08:05)
[2022-03-15] MEDS: NICOTINE PATCH (7MG) 7 MG PATCH.TD24 TD SCH (08:05)
[2022-03-15] MEDS ORDERED: predniSONE 20 MG TABLET PO SCH (09:00)
[2022-03-15] MEDS ORDERED: LORAZEPAM 1 MG TABLET PO ONE (09:30)
--- NOTE | 2022-03-15 10:39 | NUR ---
UNIT CONTROL CLERK NOTES PATIENT DISCHARGED TO [facility] IN STABLE CONDITION. ALERT AND VERBALLY RESPONSIVE. VITAL SIGNS TAKEN, STABLE AND RECORDED. ALL BELONGINGS ACCOUNTED FOR. IV ACCESS ON LEFT WRIST REMOVED, NO BLEEDING NOTED, PRESSURE DRESSING APPLIED. PHOTOS OF SKIN ISSUES TAKEN,PLACED IN CHART. REPORT GIVEN TO DINORAH RUIZ FROM [facility]. PATIENT'S AT BEDSIDE. PATIENT LEFT UNIT AT 1035 TRANSPORTED VIA GURNEY BY [facility]. CN AWARE OF DISCHARGE.
== END 2022-03-15 16:58 | DRG 196 ==
LOC: ER 22:59 → TELE 03-03 01:58 → MED 03-04 09:02
PROVIDERS: ADMIT Internal Medicine; ATTEND Nurse Practitioner Acute Care
DX: J84.9 Interstitial pulmonary disease, unspecified (principal); J96.21 Acute and chronic respiratory failure with hypoxia; G92.8 Other toxic encephalopathy; J44.1 Chronic obstructive pulmonary disease with (acute) exacerbation; E87.1 Hypo-osmolality and hyponatremia; J90 Pleural effusion, not elsewhere classified; J98.11 Atelectasis; F19.251 Other psychoactive substance dependence with psychoactive substance-induced psychotic disorder with hallucinations; I11.0 Hypertensive heart disease with heart failure; I50.9 Heart failure, unspecified; E03.9 Hypothyroidism, unspecified; Z88.8 Allergy status to other drugs, medicaments and biological substances; Z79.51 Long term (current) use of inhaled steroids; Z79.899 Other long term (current) drug therapy; E87.70 Fluid overload, unspecified; G89.29 Other chronic pain; I27.20 Pulmonary hypertension, unspecified; I48.91 Unspecified atrial fibrillation; F09 Unspecified mental disorder due to known physiological condition; Z99.81 Dependence on supplemental oxygen; D72.829 Elevated white blood cell count, unspecified; Z20.822 Contact with and (suspected) exposure to COVID-19; E86.1 Hypovolemia; F32.9 Major depressive disorder, single episode, unspecified; F17.210 Nicotine dependence, cigarettes, uncomplicated; F17.200 Nicotine dependence, unspecified, uncomplicated; Y92.129 Unspecified place in nursing home as the place of occurrence of the external cause; T38.0X5A Adverse effect of glucocorticoids and synthetic analogues, initial encounter
CPT/HCPCS: 36415; 36600; 71045-TC; 71250-TC; 80048-TC; 80053-TC; 80076-TC; 82803-TC; 82962-TC; 83605-TC; 83735-TC; 83880; 84100-TC; 84484-TC; 85025-TC; 85730-TC; 87081-TC; 93307-TC; 94799-TC; 97116-TC; 97530-TC; C9803; G0378; J0360; J0692; J1644; J1815; J1940; J1956; J2270; J2930; J3490; J7040; J7050; J7060

== ENCOUNTER 2025-03-16 18:08 | Emergency (ER) | payer OTHER ==
[~2025-03-16] VITALS: Ht 175.3 cm; Wt 54.4 kg
[~2025-03-16 18:08] MED LIST changes: -AZIT250T PO; -FURO-145 PO; +PRED20TA PO; -SERT25TA PO; +SERT50TA PO
[2025-03-16] MEDS ORDERED: ACETAMINOPHEN 325 MG TABLET ONE (21:06)
[2025-03-16] MEDS: ACETAMINOPHEN 325 MG TABLET PO ONE (21:15)
[2025-03-17 00:36] VITALS: BP 130/81; TEMP 97.3; O2SAT 98
== END 2025-03-17 00:37 | disposition home or self-care (01) ==
LOC: ER 18:55
DX: S46.011A Strain of muscle(s) and tendon(s) of the rotator cuff of right shoulder, initial encounter (principal); S09.90XA Unspecified injury of head, initial encounter; E03.9 Hypothyroidism, unspecified; I48.91 Unspecified atrial fibrillation; I10 Essential (primary) hypertension; F17.200 Nicotine dependence, unspecified, uncomplicated; F03.90 Unspecified dementia, unspecified severity, without behavioral disturbance, psychotic disturbance, mood disturbance, and anxiety; J44.9 Chronic obstructive pulmonary disease, unspecified; J90 Pleural effusion, not elsewhere classified; Z79.52 Long term (current) use of systemic steroids; Z79.899 Other long term (current) drug therapy; Z88.1 Allergy status to other antibiotic agents; Z88.8 Allergy status to other drugs, medicaments and biological substances; W07.XXXA Fall from chair, initial encounter; Y93.89 Activity, other specified; Y92.89 Other specified places as the place of occurrence of the external cause; Y99.8 Other external cause status
CPT/HCPCS: 70450-TC; 71045-TC; 73030-TC

== ENCOUNTER 2025-05-06 16:22 | Inpatient (IN) | payer OTHER ==
[~2025-05-06] VITALS: Ht 175.3 cm; Wt 51.7 kg
[2025-05-06] MEDS: IV NS 0.9% 1,000 ML BAG IV ONE (17:43)
[2025-05-06 17:47] LABS: PLATELET COUNT (AUTO) 94 K/uL (150-450); RED BLOOD CELL COUNT(AUTO) 4.18 MIL/uL (4.5-6.0); RED CELL DISTRIBUTION WIDTH 14.6 % (11.5-15.0); WHITE BLOOD COUNT (AUTO) 11.3 K/uL (4.3-11.0)
[2025-05-06 17:54] LABS: CALCIUM, SERUM 9.4 mg/dL (8.5-10.1); CREATININE 0.5 mg/dL (0.6-1.3); SODIUM SERUM 133 mmol/L (136-145); UREA NITROGEN, BLOOD 7 mg/dL (7-18)
[2025-05-06 18:01] LABS: INR 1.1 (0.91-1.10)
[2025-05-06 18:02] LABS: BASOPHILS % (MANUAL) 0 % (0.0-2.0); EOSINOPHILS % (MANUAL) 0 % (0-4); LYMPHOCYTES % (MANUAL) 2 % (16-48); MONOCYTES % (MANUAL) 6 % (0-11.0); NEUTROPHILS % (MANUAL) 92 (42-76); PLATELET ESTIMATE DECREASED
[2025-05-06 18:03] LABS: LACTIC ACID 0.9 mmol/L (0.4-2.0)
[2025-05-06 18:07] LABS: ASPARTATE AMINOTRANSFERASE 14 U/L (15-37); TOTAL PROTEIN, SERUM 7.6 g/dL (6.4-8.2)
[2025-05-06] MEDS ORDERED: IOHEXOL-300 100 ML VIAL IV ONE (18:17)
[2025-05-06] MEDS ORDERED: IV NS 0.9% 250 ML IV ONE (18:17)
[2025-05-06 18:48] LABS: ABG BASE EXCESS 10.0 mmol/L (-2.0-3.0); ABG OXYGEN SATURATION 98.6 % (94.0-98.0); ABG PCO2 93.6 mmHg (35.0-48.0); ABG PH 7.255 (7.350-7.450); ABG PO2 146.3 mmHg (83.0-108.0); ABG TOTAL HEMOGLOBIN 12.4 G/dL (13.5-17.5); FLOW, BLOOD GAS 2.00 L/min (0.00-30.00); FRACTIONATED INSPIRED OXYGEN 28.0 %; SITE, ABG RIGHT RADIAL
[2025-05-06 19:23] LABS: APPEARANCE,URINE CLEAR (CLEAR); BLOOD, URINE 3+ Ery/uL (NEGATIVE); LEUKOCYTE ESTERASE ,URINE 1+ (NEGATIVE); NITRITE, URINE NEGATIVE (NEGATIVE); UGLUCOSE NEGATIVE (NEGATIVE)
[2025-05-06] MEDS: ALBUTEROL FS 2.5 MG/3 ML VIAL.NEB CONTNEB ONE (19:23)
[2025-05-06] MEDS: IPRATROPIUM NEB FS 0.5 MG/2.5 ML AMPUL.NEB NEB ONE (19:23)
[2025-05-06] MEDS ORDERED: ALBUTEROL FS 2.5 MG/3 ML VIAL.NEB ONE (19:24)
[2025-05-06] MEDS ORDERED: IPRATROPIUM NEB FS 0.5 MG/2.5 ML AMPUL.NEB ONE (19:24)
[2025-05-06 19:34] LABS: ADD URINE CULTURE YES; CALCIUM OXALATE CRYSTALS,UR Many /HPF (None Seen); SQUAMOUS EPITHELIAL CELL,UR Rare /HPF (None Seen)
[2025-05-06] MEDS ORDERED: MAG HYDROX/AL HYDROX/SIMETH 30 ML UDC PO PRN (20:30)
[2025-05-06] MEDS ORDERED: Z GUARD REMEDY 4 OZ OINT TP PRN (20:30)
[2025-05-06] MEDS ORDERED: ONDANSETRON HCL/PF 4 MG/2 ML VIAL IVP PRN (20:30)
[2025-05-06] MEDS ORDERED: IV NS 0.9% 1,000 ML IV SCH (20:30)
[2025-05-06] MEDS ORDERED: ACETAMINOPHEN 325 MG TABLET PO PRN (20:30)
[2025-05-06] MEDS ORDERED: LEVO75TA7 GT (20:33)
[2025-05-06] MEDS ORDERED: LORA-259 GT (20:33)
[2025-05-06] MEDS ORDERED: SERT50TA GT (20:33)
[2025-05-06] MEDS ORDERED: LORA2DIS4 IJ (20:33)
[2025-05-06] MEDS ORDERED: ALBU2.5V38 NEB (20:33)
[2025-05-06] MEDS ORDERED: TRAZ-257 GT (20:33)
[2025-05-06] MEDS ORDERED: LACT-58 GT (20:45)
[2025-05-06] MEDS: IV NS 0.9% 1,000 ML IV SCH (21:15)
[2025-05-06 21:27] LABS: ABG BASE EXCESS 15.4 mmol/L (-2.0-3.0); ABG OXYGEN SATURATION 92.9 % (94.0-98.0); ABG PCO2 85.0 mmHg (35.0-48.0); ABG PH 7.341 (7.350-7.450); ABG PO2 65.8 mmHg (83.0-108.0); ABG TOTAL HEMOGLOBIN 12.3 G/dL (13.5-17.5); FRACTIONATED INSPIRED OXYGEN 30.0 %; SET RATE, BG 16.0; SITE, ABG LEFT RADIAL
[2025-05-07] VITALS (19 sets, daily range): BP systolic 92–138; BP diastolic 67–95; TEMP 97–98.2; O2SAT 95–100
[2025-05-07] MEDS ORDERED: CEFEPIME 1 GM VIAL ONE (01:41)
[2025-05-07] MEDS ORDERED: DOXYCYCLINE 100 MG VIAL ONE (01:41)
[2025-05-07] MEDS: CEFEPIME 1 GM in IV D5W 50 ML IV SCH ×2 (01:55→13:24)
[2025-05-07] MEDS: DOXYCYCLINE 100 MG in IV D5W 100 ML IV SCH (01:58)
[2025-05-07 05:10] LABS: PLATELET COUNT (AUTO) 94 K/uL (150-450); RED BLOOD CELL COUNT(AUTO) 4.01 MIL/uL (4.5-6.0); RED CELL DISTRIBUTION WIDTH 14.7 % (11.5-15.0); WHITE BLOOD COUNT (AUTO) 7.8 K/uL (4.3-11.0)
[2025-05-07 05:20] LABS: CALCIUM, SERUM 9.2 mg/dL (8.5-10.1); CREATININE 0.5 mg/dL (0.6-1.3); PHOSPHORUS 3.2 mg/dL (2.5-4.9); SODIUM SERUM 131.0 mmol/L (136-145); UREA NITROGEN, BLOOD 7.0 mg/dL (7-18)
[2025-05-07 05:40] LABS: ABG BASE EXCESS 15.4 mmol/L (-2.0-3.0); ABG OXYGEN SATURATION 94.8 % (94.0-98.0); ABG PCO2 62.6 mmHg (35.0-48.0); ABG PH 7.447 (7.350-7.450); ABG PO2 69.7 mmHg (83.0-108.0); ABG TOTAL HEMOGLOBIN 12.2 G/dL (13.5-17.5); FRACTIONATED INSPIRED OXYGEN 30.0 %; SET RATE, BG 16.0; SITE, ABG RIGHT RADIAL
[2025-05-07 06:12] LABS: LYMPHOCYTES % (MANUAL) 8 % (16-48); MONOCYTES % (MANUAL) 3 % (0-11.0); NEUTROPHILS % (MANUAL) 89 (42-76); PLATELET ESTIMATE DECREASED
[2025-05-07] MEDS: LEVOTHYROXINE SODIUM 75 MCG TABLET GT SCH (07:30)
[2025-05-07] MEDS: ENSURE ENLIVE 237 ML LIQUID (VANILLA) PO SCH (08:39)
[2025-05-07] MEDS: SERTRALINE HCL 50 MG TABLET GT SCH (08:40)
[2025-05-07] MEDS: PANTOPRAZOLE 40 MG VIAL IV SCH (08:44)
[2025-05-07] MEDS ORDERED: LORA-258 PO (16:03)
[2025-05-07] MEDS ORDERED: LORA-258 GT (16:03)
[2025-05-07] MEDS: ALBUTEROL FS 2.5 MG/3 ML VIAL.NEB NEB PRN (17:56)
[2025-05-07] MEDS: IPRATROPIUM NEB FS 0.5 MG/2.5 ML AMPUL.NEB NEB PRN (17:56)
[2025-05-07] MEDS: IV NS 0.9% 1,000 ML IV PRN (21:42)
[2025-05-08] VITALS (12 sets, daily range): BP systolic 104–126; BP diastolic 77–82; TEMP 97.2–97.5; O2SAT 93–100
[2025-05-08 07:06] LABS: PLATELET COUNT (AUTO) 112 K/uL (150-450); RED BLOOD CELL COUNT(AUTO) 3.93 MIL/uL (4.5-6.0); RED CELL DISTRIBUTION WIDTH 14.7 % (11.5-15.0); WHITE BLOOD COUNT (AUTO) 6.0 K/uL (4.3-11.0)
[2025-05-08 07:12] LABS: CALCIUM, SERUM 9.0 mg/dL (8.5-10.1); CREATININE 0.4 mg/dL (0.6-1.3); UREA NITROGEN, BLOOD 9.0 mg/dL (7-18)
[2025-05-08 07:24] LABS: SODIUM SERUM 133.0 mmol/L (136-145)
[2025-05-08 07:25] LABS: PHOSPHORUS 3.4 mg/dL (2.5-4.9)
[2025-05-08] MEDS ORDERED: ALBUTEROL FS 2.5 MG/3 ML VIAL.NEB NEB PRN (07:30)
[2025-05-08] MEDS ORDERED: LORAZEPAM 0.5 MG TABLET PO PRN (07:30)
[2025-05-08] MEDS ORDERED: LORAZEPAM 0.5 MG TABLET GT SCH (09:00)
[2025-05-08] MEDS: LORAZEPAM 0.5 MG TABLET GT PRN (11:55)
[2025-05-08] MEDS: TRAZODONE 50 MG TABLET GT SCH (22:29)
[2025-05-09] VITALS (8 sets, daily range): BP systolic 92–110; BP diastolic 61–80; TEMP 97.3–98.2; O2SAT 94–100
[2025-05-09 08:11] LABS: PLATELET COUNT (AUTO) 106 K/uL (150-450); RED BLOOD CELL COUNT(AUTO) 3.82 MIL/uL (4.5-6.0); RED CELL DISTRIBUTION WIDTH 14.8 % (11.5-15.0); WHITE BLOOD COUNT (AUTO) 5.2 K/uL (4.3-11.0)
[2025-05-09 08:29] LABS: ASPARTATE AMINOTRANSFERASE 17.0 U/L (15-37); CALCIUM, SERUM 8.5 mg/dL (8.5-10.1); CREATININE 0.3 mg/dL (0.6-1.3); PHOSPHORUS 2.7 mg/dL (2.5-4.9); SODIUM SERUM 133.0 mmol/L (136-145); TOTAL PROTEIN, SERUM 6.0 g/dL (6.4-8.2); UREA NITROGEN, BLOOD 6.0 mg/dL (7-18)
[2025-05-09] MEDS: MAGNESIUM HYDROXIDE 30 ML UDC PO PRN (17:42)
[2025-05-09] MEDS ORDERED: DOXYCYCLINE HYCLATE (100 MG) 100 MG TABLET GT SCH (21:00)
[2025-05-10] VITALS: BP 121/82; TEMP 97.5; O2SAT 99
[2025-05-10 04:00] VITALS: BP 109/71; TEMP 97.5; O2SAT 99
[2025-05-10 08:00] VITALS: BP 117/76; TEMP 97.9; O2SAT 100; O2SAT 98
[2025-05-10 08:01] LABS: PLATELET COUNT (AUTO) 109 K/uL (150-450); RED BLOOD CELL COUNT(AUTO) 4.09 MIL/uL (4.5-6.0); RED CELL DISTRIBUTION WIDTH 14.8 % (11.5-15.0); WHITE BLOOD COUNT (AUTO) 4.8 K/uL (4.3-11.0)
[2025-05-10 08:21] LABS: SODIUM SERUM 136 mmol/L (136-145)
[2025-05-10 08:23] LABS: CALCIUM, SERUM 8.8 mg/dL (8.5-10.1); CREATININE 0.4 mg/dL (0.6-1.3); UREA NITROGEN, BLOOD 5 mg/dL (7-18)
[2025-05-10 09:07] LABS: FOLIC ACID 14.0 ng/mL (>3.0)
[2025-05-10 09:39] LABS: ABG BASE EXCESS 12.2 mmol/L (-2.0-3.0); ABG OXYGEN SATURATION 97.5 % (94.0-98.0); ABG PCO2 73.7 mmHg (35.0-48.0); ABG PH 7.359 (7.350-7.450); ABG PO2 101.3 mmHg (83.0-108.0); ABG TOTAL HEMOGLOBIN 12.3 G/dL (13.5-17.5); FLOW, BLOOD GAS 2.00 L/min (0.00-30.00); FRACTIONATED INSPIRED OXYGEN 28.0 %; SITE, ABG LEFT RADIAL
[2025-05-10 12:00] VITALS: BP 110/71; TEMP 97.9; O2SAT 100; O2SAT 98
[2025-05-10 14:35] LABS: APPEARANCE,URINE SLIGHTLY CLOUDY (CLEAR); BLOOD, URINE NEGATIVE Ery/uL (NEGATIVE); LEUKOCYTE ESTERASE ,URINE NEGATIVE (NEGATIVE); NITRITE, URINE NEGATIVE (NEGATIVE); UGLUCOSE NEGATIVE (NEGATIVE)
[2025-05-10 14:44] LABS: ADD URINE CULTURE NO; CALCIUM OXALATE CRYSTALS,UR Few /HPF (None Seen); SQUAMOUS EPITHELIAL CELL,UR Few /HPF (None Seen)
[2025-05-10 16:00] VITALS: BP 121/79; TEMP 97.9; O2SAT 100; O2SAT 98
[2025-05-10 16:50] LABS: SERUM AMMONIA 9 umol/L (11-32)
[2025-05-10 22:00] VITALS: BP 127/81; TEMP 97.7; O2SAT 97
[2025-05-11] VITALS: BP 100/76; TEMP 97.9; O2SAT 99
[2025-05-11 04:00] VITALS: BP 119/88; TEMP 97.9; O2SAT 100
[2025-05-11 08:00] VITALS: BP 112/61; TEMP 98.1; O2SAT 98
[2025-05-11 08:06] LABS: PLATELET COUNT (AUTO) 104 K/uL (150-450); RED BLOOD CELL COUNT(AUTO) 3.95 MIL/uL (4.5-6.0); RED CELL DISTRIBUTION WIDTH 14.8 % (11.5-15.0); WHITE BLOOD COUNT (AUTO) 3.8 K/uL (4.3-11.0)
[2025-05-11 08:11] LABS: CALCIUM, SERUM 8.8 mg/dL (8.5-10.1); CREATININE 0.3 mg/dL (0.6-1.3); SODIUM SERUM 134.0 mmol/L (136-145); UREA NITROGEN, BLOOD 5.0 mg/dL (7-18)
[2025-05-11 14:08] VITALS: O2SAT 97
[2025-05-11 14:23] VITALS: O2SAT 99
[2025-05-12 08:07] LABS: METHYLMALONIC ACID 680.0 nmol/L (0-378)
[2025-05-13 12:06] LABS: VITAMIN B1 THIAMINE,WB 89.6 nmol/L (66.5-200.0)
== END 2025-05-11 14:44 | disposition home health service (06) | DRG 189 ==
LOC: ER 16:28 → ICU 22:49 → TELE1 05-07 13:54
PROVIDERS: ATTEND Internal Medicine
PROC: 5A09357 Assistance with Respiratory Ventilation, Less than 24 Consecutive Hours, Continuous Positive Airway Pressure (ICD-10-PCS; principal; 2025-05-06)
DX: J96.22 Acute and chronic respiratory failure with hypercapnia (principal); G93.41 Metabolic encephalopathy; E87.4 Mixed disorder of acid-base balance; E87.20 Acidosis, unspecified; J90 Pleural effusion, not elsewhere classified; J98.11 Atelectasis; J96.21 Acute and chronic respiratory failure with hypoxia; D69.6 Thrombocytopenia, unspecified; Z99.81 Dependence on supplemental oxygen; Z87.440 Personal history of urinary (tract) infections; E03.9 Hypothyroidism, unspecified; I48.91 Unspecified atrial fibrillation; Z66 Do not resuscitate; N40.0 Benign prostatic hyperplasia without lower urinary tract symptoms; R13.10 Dysphagia, unspecified; I10 Essential (primary) hypertension; R62.7 Adult failure to thrive; F29 Unspecified psychosis not due to a substance or known physiological condition; E78.5 Hyperlipidemia, unspecified; Z93.1 Gastrostomy status; Z89.422 Acquired absence of other left toe(s); Z98.1 Arthrodesis status; Z88.1 Allergy status to other antibiotic agents; Z88.8 Allergy status to other drugs, medicaments and biological substances; Z79.51 Long term (current) use of inhaled steroids; Z79.890 Hormone replacement therapy; Z79.899 Other long term (current) drug therapy; Z87.09 Personal history of other diseases of the respiratory system; F41.9 Anxiety disorder, unspecified; F32.A Depression, unspecified; L89.156 Pressure-induced deep tissue damage of sacral region; L89.316 Pressure-induced deep tissue damage of right buttock; L89.326 Pressure-induced deep tissue damage of left buttock; Z87.01 Personal history of pneumonia (recurrent); K80.20 Calculus of gallbladder without cholecystitis without obstruction; F15.90 Other stimulant use, unspecified, uncomplicated; L98.9 Disorder of the skin and subcutaneous tissue, unspecified; D69.2 Other nonthrombocytopenic purpura; S41.112A Laceration without foreign body of left upper arm, initial encounter; S41.111A Laceration without foreign body of right upper arm, initial encounter; X58.XXXA Exposure to other specified factors, initial encounter; Y92.9 Unspecified place or not applicable; D72.829 Elevated white blood cell count, unspecified
CPT/HCPCS: 31720; 36415; 36600; 70450-TC; 71045-TC; 80048-TC; 80053-TC; 80076-TC; 81001; 82140-TC; 82607-TC; 82803-TC; 83605-TC; 83735-TC; 83921; 83935-TC; 84100-TC; 84425; 84439-TC; 84443-TC; 84484-TC; 84550-TC; 85025-TC; 85730-TC; 87040-TC; 87045-TC; 87070-TC; 87081-TC; 87086-TC; 87205-TC; 92526; 92611-TC; 93307-TC; 94640-TC; 94760-TC; 94799-TC; 97110-TC; 97112-TC; 97116-TC; 97530-TC; A4223; G0378; J0692; J2470; J3490; J7030; J7050; J7060; Q9967

== ENCOUNTER 2025-05-18 22:30 | Inpatient (IN) | payer OTHER ==
[~2025-05-18] VITALS: Ht 172.7 cm; Wt 55.3 kg
[~2025-05-18 22:30] MED LIST changes: -ACET325T53 PO; -ALBU18HF2 IH; +ALBU2.5V38 NEB; -ALLA266C2 TP; +LACT-58 GT; +LEVO75TA7 GT; -LEVO75TA7 PO; +LORA-258 GT; -MAG-55 PO; -MAGN400O6 PO; -NICO-760 TD; -PANT40TA49 PO; -POTA20TA83 PO; -PRED20TA PO; +SERT50TA GT; -SERT50TA PO; -TEMA15CA PO; +TRAZ-257 GT; -TRAZ-257 PO
[2025-05-18] MEDS ORDERED: ACETAMINOPHEN 325 MG/SUPP.RECT RC ONE (22:57)
[2025-05-18] MEDS ORDERED: ACETAMINOPHEN 650 MG/SUPP.RECT RC ONE (22:57)
[2025-05-18 23:03] LABS: PLATELET COUNT (AUTO) 156 K/uL (150-450); RED BLOOD CELL COUNT(AUTO) 4.16 MIL/uL (4.5-6.0); RED CELL DISTRIBUTION WIDTH 15.3 % (11.5-15.0); WHITE BLOOD COUNT (AUTO) 16.7 K/uL (4.3-11.0)
[2025-05-18] MEDS: ACETAMINOPHEN 650 MG/SUPP.RECT RC ONE (23:03)
[2025-05-18] MEDS: IV NS 0.9% 500 ML BAG IV ONE (23:03)
[2025-05-18 23:12] LABS: APPEARANCE,URINE SLIGHTLY CLOUDY (CLEAR); BLOOD, URINE 1+ Ery/uL (NEGATIVE); LEUKOCYTE ESTERASE ,URINE 3+ (NEGATIVE); NITRITE, URINE NEGATIVE (NEGATIVE); UGLUCOSE NEGATIVE (NEGATIVE)
[2025-05-18 23:18] LABS: URINE AMORPHOUS PHOSPHATES Moderate /HPF (None Seen)
[2025-05-18 23:18] LABS: INR 1.1 (0.91-1.10)
[2025-05-18 23:19] LABS: ADD URINE CULTURE YES
[2025-05-18 23:20] LABS: SQUAMOUS EPITHELIAL CELL,UR None Seen /HPF (None Seen)
[2025-05-18] MEDS ORDERED: SERT50TA PO (23:21)
[2025-05-18] MEDS ORDERED: LORA-259 PO (23:21)
[2025-05-18] MEDS ORDERED: LEVO75TA7 PO (23:21)
[2025-05-18] MEDS ORDERED: TRAZ-257 PO (23:21)
[2025-05-18] MEDS ORDERED: ALBU2.5V38 NEB (23:21)
[2025-05-18 23:22] LABS: LACTIC ACID 3.6 mmol/L (0.4-2.0)
[2025-05-18 23:30] LABS: ASPARTATE AMINOTRANSFERASE 16 U/L (15-37); CALCIUM, SERUM 8.8 mg/dL (8.5-10.1); CREATININE 0.4 mg/dL (0.6-1.3); NT-PRO BNP 654 pg/mL (0-125); SODIUM SERUM 135 mmol/L (136-145); TOTAL PROTEIN, SERUM 7.4 g/dL (6.4-8.2); UREA NITROGEN, BLOOD 8 mg/dL (7-18)
[2025-05-18] MEDS ORDERED: CEFTRIAXONE 1GM BAG (ER ONLY) 50 ML IV ONE (23:30)
[2025-05-18] MEDS: CEFTRIAXONE 1GM BAG (ER ONLY) 1 GM/50 ML PIGGYBACK IV ONE (23:41)
[2025-05-18] MEDS: IV NS 0.9% 1,000 ML BAG IV ONE (23:41)
[2025-05-19] MEDS ORDERED: ALBUTEROL FS 2.5 MG/3 ML VIAL.NEB NEB PRN
[2025-05-19] MEDS ORDERED: MAG HYDROX/AL HYDROX/SIMETH 30 ML UDC PO PRN
[2025-05-19] MEDS ORDERED: Z GUARD REMEDY 4 OZ OINT TP PRN
[2025-05-19] MEDS ORDERED: IPRATROPIUM NEB FS 0.5 MG/2.5 ML AMPUL.NEB NEB PRN
[2025-05-19] MEDS ORDERED: ACETAMINOPHEN 325 MG TABLET PO PRN
[2025-05-19] MEDS ORDERED: ONDANSETRON HCL/PF 4 MG/2 ML VIAL IVP PRN
[2025-05-19] MEDS ORDERED: AZITHROMYCIN 500 MG VIAL ONE (00:21)
[2025-05-19] MEDS: AZITHROMYCIN 500 MG in IV D5W 250 ML IV SCH (00:34)
[2025-05-19 01:14] LABS: ABG BASE EXCESS 10.0 mmol/L (-2.0-3.0); ABG OXYGEN SATURATION 97.9 % (94.0-98.0); ABG PCO2 67.9 mmHg (35.0-48.0); ABG PH 7.362 (7.350-7.450); ABG PO2 105.6 mmHg (83.0-108.0); ABG TOTAL HEMOGLOBIN 11.6 G/dL (13.5-17.5); FLOW, BLOOD GAS 3.00 L/min (0.00-30.00); FRACTIONATED INSPIRED OXYGEN 32.0 %; SITE, ABG RIGHT RADIAL
[2025-05-19 03:15] VITALS: BP 96/82; TEMP 97.3; O2SAT 100
[2025-05-19 04:00] VITALS: BP 98/79; TEMP 97.7; O2SAT 100
[2025-05-19 07:37] LABS: PLATELET COUNT (AUTO) 114 K/uL (150-450); RED BLOOD CELL COUNT(AUTO) 3.41 MIL/uL (4.5-6.0); RED CELL DISTRIBUTION WIDTH 15.4 % (11.5-15.0); WHITE BLOOD COUNT (AUTO) 14.6 K/uL (4.3-11.0)
[2025-05-19 07:41] LABS: CALCIUM, SERUM 8.5 mg/dL (8.5-10.1); PHOSPHORUS 3.4 mg/dL (2.5-4.9); SODIUM SERUM 137.0 mmol/L (136-145); UREA NITROGEN, BLOOD 8.0 mg/dL (7-18)
[2025-05-19 08:00] VITALS: BP 100/80; TEMP 97.5; O2SAT 100
[2025-05-19 08:08] LABS: CREATININE 0.3 mg/dL (0.6-1.3)
[2025-05-19] MEDS: PANTOPRAZOLE 40 MG VIAL IV SCH (08:13)
[2025-05-19] MEDS: LEVOTHYROXINE SODIUM 75 MCG TABLET GT SCH (08:14)
[2025-05-19] MEDS: LORAZEPAM 0.5 MG TABLET GT SCH (08:14)
[2025-05-19] MEDS: LACTOSE-FREE FOOD 237 ML BOTTLE GT SCH (09:00)
[2025-05-19 09:32] LABS: ABG BASE EXCESS 12.8 mmol/L (-2.0-3.0); ABG OXYGEN SATURATION 99.4 % (94.0-98.0); ABG PCO2 87.7 mmHg (35.0-48.0); ABG PH 7.302 (7.350-7.450); ABG PO2 218.1 mmHg (83.0-108.0); ABG TOTAL HEMOGLOBIN 11.5 G/dL (13.5-17.5); FLOW, BLOOD GAS 2.00 L/min (0.00-30.00); FRACTIONATED INSPIRED OXYGEN 29.0 %; SITE, ABG RIGHT RADIAL
[2025-05-19 11:49] LABS: ABG BASE EXCESS 11.6 mmol/L (-2.0-3.0); ABG OXYGEN SATURATION 92.8 % (94.0-98.0); ABG PCO2 53.1 mmHg (35.0-48.0); ABG PH 7.462 (7.350-7.450); ABG PO2 60.0 mmHg (83.0-108.0); ABG TOTAL HEMOGLOBIN 10.8 G/dL (13.5-17.5); FRACTIONATED INSPIRED OXYGEN 28.0 %; SET RATE, BG 20.0; SITE, ABG LEFT RADIAL
[2025-05-19 12:00] VITALS: BP 89/57; TEMP 97.9; O2SAT 100
[2025-05-19] MEDS ORDERED: ENSURE ENLIVE 237 ML LIQUID (VANILLA) PO SCH (12:00)
[2025-05-19] MEDS: ENSURE ENLIVE 237 ML LIQUID (VANILLA) PO SCH (12:22)
[2025-05-19 16:00] VITALS: BP 93/62; TEMP 97.7; O2SAT 100
[2025-05-19] MEDS: SERTRALINE HCL 50 MG TABLET GT SCH (17:06)
[2025-05-19 20:00] VITALS: BP 92/59; TEMP 97.9; O2SAT 100
[2025-05-19] MEDS: TRAZODONE 50 MG TABLET GT SCH (21:52)
[2025-05-19] MEDS: CEFTRIAXONE 1 G in IV D5W 50 ML IV SCH (22:09)
[2025-05-20] VITALS: BP 90/56; TEMP 97.5; O2SAT 100
[2025-05-20 04:00] VITALS: BP 95/59; TEMP 97.7; O2SAT 100
[2025-05-20 08:00] VITALS: BP 94/62; TEMP 97.5; O2SAT 99
[2025-05-20 08:47] LABS: PLATELET COUNT (AUTO) 113 K/uL (150-450); RED BLOOD CELL COUNT(AUTO) 3.69 MIL/uL (4.5-6.0); RED CELL DISTRIBUTION WIDTH 15.0 % (11.5-15.0); WHITE BLOOD COUNT (AUTO) 9.8 K/uL (4.3-11.0)
[2025-05-20 09:04] LABS: ASPARTATE AMINOTRANSFERASE 15.0 U/L (15-37); CALCIUM, SERUM 8.9 mg/dL (8.5-10.1); CREATININE 0.3 mg/dL (0.6-1.3); SODIUM SERUM 131.0 mmol/L (136-145); TOTAL PROTEIN, SERUM 6.5 g/dL (6.4-8.2); UREA NITROGEN, BLOOD 13.0 mg/dL (7-18)
[2025-05-20] MEDS: MAGNESIUM HYDROXIDE 30 ML UDC PO PRN (10:11)
[2025-05-20 12:00] VITALS: BP 99/63; TEMP 98.2; O2SAT 92
[2025-05-20] MEDS: LORAZEPAM 0.5 MG TABLET GT PRN (15:54)
[2025-05-20 16:00] VITALS: BP 103/70; TEMP 97.7; O2SAT 97
[2025-05-20 20:00] VITALS: BP 119/77; TEMP 97.5; O2SAT 97
[2025-05-21] VITALS: BP 94/62; TEMP 97.5; O2SAT 97
[2025-05-21 04:00] VITALS: BP 111/76; TEMP 97.2; O2SAT 100
[2025-05-21 07:22] LABS: ASPARTATE AMINOTRANSFERASE 11.0 U/L (15-37); CALCIUM, SERUM 8.6 mg/dL (8.5-10.1); CREATININE 0.3 mg/dL (0.6-1.3); SODIUM SERUM 136.0 mmol/L (136-145); TOTAL PROTEIN, SERUM 6.4 g/dL (6.4-8.2); UREA NITROGEN, BLOOD 11.0 mg/dL (7-18)
[2025-05-21 08:00] VITALS: BP 101/79; TEMP 97.7; O2SAT 96
[2025-05-21 08:53] LABS: PLATELET COUNT (AUTO) 118 K/uL (150-450); RED BLOOD CELL COUNT(AUTO) 3.77 MIL/uL (4.5-6.0); RED CELL DISTRIBUTION WIDTH 15.4 % (11.5-15.0); WHITE BLOOD COUNT (AUTO) 8.8 K/uL (4.3-11.0)
[2025-05-21] MEDS ORDERED: PANTOPRAZOLE 40 MG/PACK PACK PO SCH (09:00)
[2025-05-21] MEDS: MEROPENEM 500 MG in IV NS 0.9% 50 ML IV SCH (11:10)
[2025-05-21 16:00] VITALS: BP 113/72; TEMP 97.9; O2SAT 92
[2025-05-21 20:00] VITALS: BP 132/84; TEMP 98.2; O2SAT 99
[2025-05-22 04:00] VITALS: BP 106/75; TEMP 98; O2SAT 99
[2025-05-22 07:13] LABS: PLATELET COUNT (AUTO) 145 K/uL (150-450); RED BLOOD CELL COUNT(AUTO) 3.82 MIL/uL (4.5-6.0); RED CELL DISTRIBUTION WIDTH 15.0 % (11.5-15.0); WHITE BLOOD COUNT (AUTO) 5.0 K/uL (4.3-11.0)
[2025-05-22 08:00] VITALS: BP 118/72; TEMP 97.7; O2SAT 100
[2025-05-22 08:50] LABS: ASPARTATE AMINOTRANSFERASE 12.0 U/L (15-37); CALCIUM, SERUM 8.7 mg/dL (8.5-10.1); CREATININE 0.3 mg/dL (0.6-1.3); PHOSPHORUS 3.2 mg/dL (2.5-4.9); SODIUM SERUM 135.0 mmol/L (136-145); TOTAL PROTEIN, SERUM 6.4 g/dL (6.4-8.2); UREA NITROGEN, BLOOD 11.0 mg/dL (7-18)
[2025-05-22] MEDS ORDERED: ERTA1VIA4 IJ (11:57)
[2025-05-22 16:00] VITALS: BP 119/86; TEMP 97.5; O2SAT 99
[2025-05-22 19:16] VITALS: BP 138/88; O2SAT 98
== END 2025-05-22 19:13 | disposition home health service (06) | DRG 871 ==
LOC: ER 22:36 → TELE1 05-19 02:02 → TELE-TD 05-19 09:55 → MEDSG1 05-21 10:48
PROVIDERS: ADMIT Nurse Practitioner Acute Care; ATTEND Nurse Practitioner Acute Care
PROC: 5A09357 Assistance with Respiratory Ventilation, Less than 24 Consecutive Hours, Continuous Positive Airway Pressure (ICD-10-PCS; principal; 2025-05-19)
DX: A41.9 Sepsis, unspecified organism (principal); G92.8 Other toxic encephalopathy; J69.0 Pneumonitis due to inhalation of food and vomit; J96.21 Acute and chronic respiratory failure with hypoxia; J96.22 Acute and chronic respiratory failure with hypercapnia; R53.2 Functional quadriplegia; D68.59 Other primary thrombophilia; J44.1 Chronic obstructive pulmonary disease with (acute) exacerbation; I50.32 Chronic diastolic (congestive) heart failure; E87.1 Hypo-osmolality and hyponatremia; E87.20 Acidosis, unspecified; N39.0 Urinary tract infection, site not specified; I48.20 Chronic atrial fibrillation, unspecified; J90 Pleural effusion, not elsewhere classified; Z16.12 Extended spectrum beta lactamase (ESBL) resistance; I11.0 Hypertensive heart disease with heart failure; E03.9 Hypothyroidism, unspecified; E11.9 Type 2 diabetes mellitus without complications; Z99.81 Dependence on supplemental oxygen; N40.0 Benign prostatic hyperplasia without lower urinary tract symptoms; Z93.1 Gastrostomy status; Z74.09 Other reduced mobility; Z87.440 Personal history of urinary (tract) infections; Z79.899 Other long term (current) drug therapy; R13.11 Dysphagia, oral phase; L89.156 Pressure-induced deep tissue damage of sacral region; L89.116 Pressure-induced deep tissue damage of right upper back; L89.126 Pressure-induced deep tissue damage of left upper back; S41.112A Laceration without foreign body of left upper arm, initial encounter; X58.XXXA Exposure to other specified factors, initial encounter; Y93.9 Activity, unspecified; Y92.009 Unspecified place in unspecified non-institutional (private) residence as the place of occurrence of the external cause; I95.9 Hypotension, unspecified; B96.20 Unspecified Escherichia coli [E. coli] as the cause of diseases classified elsewhere; Z20.822 Contact with and (suspected) exposure to COVID-19; F03.90 Unspecified dementia, unspecified severity, without behavioral disturbance, psychotic disturbance, mood disturbance, and anxiety
CPT/HCPCS: 36415; 36600; 71045-TC; 73630-TC; 80048-TC; 80053-TC; 80076-TC; 81001; 82803-TC; 83605-TC; 83735-TC; 83880; 84100-TC; 84439-TC; 84443-TC; 84481; 84484-TC; 84550-TC; 85025-TC; 85730-TC; 87040-TC; 87086-TC; 87186-TC; 92526; 92611-TC; 94799-TC; 97116-TC; 97530-TC; A4223; A4349; G0378; J0456; J0696; J2185; J7040; J7050; J7060